=== PATIENT | male | born 1990 | race African-American/Black ===

== ENCOUNTER 2020-06-24 10:31 | Outpatient (REF) | payer OTHER, SELFPAY | END 2020-06-24 10:32 | disposition home or self-care (01) | LOC: HO.LAB 10:31 | PROVIDERS: Visit Provider Internal Medicine | DX: Z20.828 Contact with and (suspected) exposure to other viral communicable diseases (principal) | CPT/HCPCS: C9803; U0003 ==

== ENCOUNTER 2020-07-05 12:26 | Emergency (ER) | payer OTHER, SELFPAY ==
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
--- NOTE | 2020-07-05 12:54 | XR_ITS ---
EXAMINATION: XR FINGER, RIGHT CLINICAL INFORMATION: Fifth digit crush injury. COMPARISON: None. TECHNIQUE: 3 views. FINDINGS: There is a comminuted fracture of the distal aspect of the 5th distal phalanx, with displaced osseous fragments seen along the distal, radial and volar aspects. Soft tissue swelling. Apparent soft tissue irregularity dorsally. Chronic-appearing ossification/ossicle volar to the 5th PIP joint. The remainder of the bones appear intact. XR/XR finger RT min 2V IMPRESSION: Comminuted displaced fracture of the distal aspect of the 5th distal phalanx.
[2020-07-05 12:56] VITALS: BP 141/108; PULSE 101; RESP 16; TEMP 36.8; O2SAT 97; BMI 23.7
[2020-07-05] MEDS: Lidocaine HCl 2 % MPF 5 ML VIAL INFILTRATI (13:53)
== END 2020-07-05 14:32 | disposition home or self-care (01) ==
PROVIDERS: Emergency Provider Emergency Medicine
DX: S62.636B Displaced fracture of distal phalanx of right little finger, initial encounter for open fracture (principal); S61.316A Laceration without foreign body of right little finger with damage to nail, initial encounter; W20.8XXA Other cause of strike by thrown, projected or falling object, initial encounter; Y93.89 Activity, other specified; Y92.69 Other specified industrial and construction area as the place of occurrence of the external cause; Y99.0 Civilian activity done for income or pay
CPT/HCPCS: 12041; 29130; 73140; 99283; 99284

== ENCOUNTER → 2020-07-07 13:06 | Outpatient (BNVA) | payer OTHER, SELFPAY | PROVIDERS: Visit Provider Internal Medicine | DX: S62.636A Displaced fracture of distal phalanx of right little finger, initial encounter for closed fracture (principal); S61.216A Laceration without foreign body of right little finger without damage to nail, initial encounter; X50.0XXA Overexertion from strenuous movement or load, initial encounter | CPT/HCPCS: 99203 ==

== ENCOUNTER → 2020-07-14 11:41 | Outpatient (BNVA) | payer OTHER, SELFPAY | PROVIDERS: Visit Provider Internal Medicine | DX: S61.339A Puncture wound without foreign body of unspecified finger with damage to nail, initial encounter (principal); W23.0XXA Caught, crushed, jammed, or pinched between moving objects, initial encounter | CPT/HCPCS: 99212; 99213 ==

== ENCOUNTER → 2020-07-19 09:46 | Outpatient (BNVA) | payer OTHER, SELFPAY | PROVIDERS: Visit Provider Physician Assistant | DX: S67.196A Crushing injury of right little finger, initial encounter (principal); X58.XXXA Exposure to other specified factors, initial encounter | CPT/HCPCS: 99213 ==

== ENCOUNTER 2020-11-26 23:41 | Emergency (ER) | payer OTHER, SELFPAY ==
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
[2020-11-26 23:53] VITALS: BP 138/78; BP 180/116; PULSE 100; PULSE 104; RESP 16; TEMP 36.6; O2SAT 97; BMI 27.6
[2020-11-27] MEDS: Diphth,Pertus(ACell),Tet Adult 0.5 ML SYRINGE IM (00:14)
--- NOTE | 2020-11-27 00:18 | PC.NURSE ---
PT IS REQUESTING TO LEAVE AND DOESN'T WANT TO STAY FOR CT OF HIS HEAD. PT EDUCATED ON IMPORTANCE OF STAYING UNTIL RESULTS OF CT. TETANUS SHOT GIVEN TO LEFT DELTOID IM.
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
--- NOTE | 2020-11-27 00:58 | PC.NURSE ---
PT RETURNS FROM CT AWAITING DISPO.
== END 2020-11-27 02:33 | disposition home or self-care (01) ==
PROVIDERS: Emergency Provider Student in an Organized Health Care Education/Training Program
DX: S00.31XA Abrasion of nose, initial encounter (principal); S00.531A Contusion of lip, initial encounter; V43.02XA Car driver injured in collision with other type car in nontraffic accident, initial encounter; Y93.89 Activity, other specified; Y92.481 Parking lot as the place of occurrence of the external cause; Y99.9 Unspecified external cause status
CPT/HCPCS: 70450; 70486; 71046; 72125; 90471; 90715; 99283; 99284

== ENCOUNTER 2020-12-13 12:37 | Outpatient (REF) | payer OTHER, SELFPAY | END 2020-12-13 12:38 | disposition home or self-care (01) | LOC: HO.LAB 12:37 | PROVIDERS: Visit Provider Internal Medicine | DX: Z20.822 Contact with and (suspected) exposure to COVID-19 (principal) | CPT/HCPCS: C9803; U0003; U0005 ==

== ENCOUNTER 2021-01-31 12:00 | Outpatient (REF) | payer OTHER, SELFPAY ==
[2021-01-31 13:14] LABS: COVID-19 Test Negative (Negative)
== END 2021-01-31 12:01 | disposition home or self-care (01) ==
LOC: HO.ED 12:00
PROVIDERS: Visit Provider Internal Medicine
DX: Z20.822 Contact with and (suspected) exposure to COVID-19 (principal)
CPT/HCPCS: 36415; 87635

== ENCOUNTER 2021-04-29 12:01 | Emergency (ER) | payer OTHER, SELFPAY ==
[2021-04-29 12:30] VITALS: BP 168/112; PULSE 103; RESP 18; TEMP 37.5; O2SAT 95; BMI 27.6
--- NOTE | 2021-04-29 12:35 | ED.GENADULT ---
HPI - General Adult General Chief complaint: Psychiatric Symptoms Stated complaint: crisis Time Seen by Provider: 04/29/21 12:36 Source: patient Limitations: no limitations History of Present Illness HPI narrative: This is a 28-year-old male who complains of feeling depressed and hopeless, wonders if he should be here on the earth. The patient notes he has recently moved back with his mother. He expresses some shame about this. Says he does his best for his girlfriend and his daughter and other family. Does admit to drinking alcohol daily, states he has had 5 nips today. He does feel hopeless, notes trouble sleeping, has had decreased appetite recently. He denies any physical complaints such as headache, chest pain, abdominal pain. He is not on any medications for depression or anxiety or other psychiatric illness. He has a history of asthma. He admits marijuana use, denies other drug use. Related Data Previous Rx's Medication Instructions Recorded cephalexin 500 mg capsule (Keflex) 500 mg PO QID 7 Days #28 cap 07/05/20 ibuprofen 600 mg tablet 600 mg PO Q8H PRN #30 tab 07/05/20 Allergies Allergy/AdvReac Type Severity Reaction Status Date / Time No Known Allergies Allergy Verified 01/31/21 11:34 Review of Systems Review of Systems: Yes all other systems are reviewed and are negative Constitutional: Constitutional: Reports as per HPI and Denies fever(s) Eyes: Eyes: Reports as per HPI and Reports no additional eye complaints ENT: Reports system reviewed and no additional complaints, except as documented, Reports as per HPI, Denies nasal congestion, Denies nasal discharge and Denies sore throat Cardiovascular: Cardiovascular: Reports as per HPI, Denies chest pain and Denies dyspnea Respiratory: Respiratory: Reports as per HPI, Denies cough and Denies dyspnea Gastrointestinal: Gastrointestinal: Reports as per HPI, Denies abdominal pain, Denies diarrhea and Denies vomiting Genitourinary: Genitourinary: Reports as per HPI, Denies hematuria, Denies dysuria and Denies urinary frequency Musculoskeletal: Musculoskeletal: Reports no additional musculoskeletal complaints and Denies numbness Integumentary/Breasts: Skin/Breast: Reports as per HPI and Denies rash Neurologic: Reports as per HPI, Denies focal weakness, Denies numbness and Denies radicular pain Psychiatric: Psychiatric: Reports as per HPI, Reports change in appetite, Reports depression, Reports hopelessness and Reports suicidal ideation (Denies specific plans, asks, should I even be here ) Endocrine: Endocrine: Reports no additional endocrine complaints and Reports as per HPI Hematologic/Lymphatic: Hematologic/Lymphatic: Reports no additional hematologic/lymphatic complaints, Reports as per HPI and Reports other (No peripheral edema) [facility] Past Medical History Medical History Asthma Surgical History History of tonsillectomy and adenoidectomy Social History Social History Advance Directives: No Advance Directives Information Provided: Yes Physical Exam Vital Signs: Vital Signs: Last Vital Signs Temp 99.5 F 04/29/21 12:30 Pulse 103 H 04/29/21 12:44 Resp 18 04/29/21 12:30 BP 168/112 H 04/29/21 12:44 Pulse Ox 95 04/29/21 12:30 Body Mass Index 27.6 Medical Decision Making MDM Narrative Medical decision making narrative: Patient with depression, uses alcohol daily, expresses doubt about whether he should be alive, is not more specific in terms of a suicidal plan. Patient does have symptoms of depression such as anhedonia, poor sleep, poor appetite, trouble sleeping. Patient's alcohol level was considerably elevated specially in light of the time of day he was initially evaluated. Once he is clinically sober, he is to be evaluated by the crisis team. Patient is medically clear for psychiatric evaluation Lab Data Lab results reviewed: Yes I reviewed the patient's lab results. Result diagrams: 04/29/21 12:52 04/29/21 12:52 Labs: Lab Results 04/29/21 04/29/21 04/29/21 Range/Units 12:52 12:52 12:52 WBC 8.3 (4.8-10.8) X10*3/uL RBC 5.34 (4.60-5.80) X10*6/uL Hgb 16.2 (14.0-18.0) g/dl Hct 47.5 (42-52) % MCV 89.0 (80-98) fL MCH 30.3 (27.0-33.0) pg MCHC 34.1 (31.0-36.0) g/dl RDW 12.9 (11.0-16.0) % Plt Count 340 (160-400) X10*3/uL MPV 8.2 L (9.4-12.4) fL Immature Gran % (Auto) 0.2 (0.0-0.4) % Neut % (Auto) 49.7 (45-73) % Lymph % (Auto) 42.3 H (20-40) % [place] % (Auto) 7.1 (2-11) % Eos % (Auto) 0.2 (0-4) % Baso % (Auto) 0.5 (0-2) % Lymph # (Auto) 3.5 (1.2-4.9) X10*3/uL [place] # (Auto) 0.6 (0.1-1.2) X10*3/uL Eos # (Auto) 0.0 (0.0-0.4) X10*3/uL Baso # (Auto) 0.0 (0.0-0.2) X10*3/uL Abs Immat Gran (auto) 0.02 (0.00-0.03) X10*3/uL Absolute Neuts (auto) 4.1 (2.0-8.3) X10*3/uL Absolute Nucleated RBC 0.000 (0.0-0.012) X10*3/uL Nucleated RBC % (auto) 0.0 (0.0-0.2) /100WBC Sodium 141 (135-145) mmol/L Potassium 3.8 (3.3-5.1) mmol/L Chloride 106 (96-108) mmol/L Carbon Dioxide 25 (22-29) mmol/L Anion Gap 14 (12-20) BUN 8 L (9-16) mg/dL Creatinine 0.84 (0.5-1.4) mg/dL Estim Creat Clear Calc 142.6 Estimated GFR > 60 Random Glucose 83 (60-115) mg/dL Calcium 9.6 (8.4-10.2) mg/dL Magnesium 2.3 (1.6-2.6) mg/dL Total Bilirubin 1.0 (0.0-1.0) mg/dL AST 24 (5-37) U/L ALT 29 (0-40) U/L Alkaline Phosphatase 98 (39-117) U/L Total Protein 7.5 (6.5-8.0) g/dL Albumin 4.6 (3.5-5.0) g/dL Ethyl Alcohol 322 H* mg/dL COVID-19 ([facility]) (Negative) COVID-19 Clin Com 04/29/21 Range/Units 12:52 WBC (4.8-10.8) X10*3/uL RBC (4.60-5.80) X10*6/uL Hgb (14.0-18.0) g/dl Hct (42-52) % MCV (80-98) fL MCH (27.0-33.0) pg MCHC (31.0-36.0) g/dl RDW (11.0-16.0) % Plt Count (160-400) X10*3/uL MPV (9.4-12.4) fL Immature Gran % (Auto) (0.0-0.4) % Neut % (Auto) (45-73) % Lymph % (Auto) (20-40) % [place] % (Auto) (2-11) % Eos % (Auto) (0-4) % Baso % (Auto) (0-2) % Lymph # (Auto) (1.2-4.9) X10*3/uL [place] # (Auto) (0.1-1.2) X10*3/uL Eos # (Auto) (0.0-0.4) X10*3/uL Baso # (Auto) (0.0-0.2) X10*3/uL Abs Immat Gran (auto) (0.00-0.03) X10*3/uL Absolute Neuts (auto) (2.0-8.3) X10*3/uL Absolute Nucleated RBC (0.0-0.012) X10*3/uL Nucleated RBC % (auto) (0.0-0.2) /100WBC Sodium (135-145) mmol/L Potassium (3.3-5.1) mmol/L Chloride (96-108) mmol/L Carbon Dioxide (22-29) mmol/L Anion Gap (12-20) BUN (9-16) mg/dL Creatinine (0.5-1.4) mg/dL Estim Creat Clear Calc Estimated GFR Random Glucose (60-115) mg/dL Calcium (8.4-10.2) mg/dL Magnesium (1.6-2.6) mg/dL Total Bilirubin (0.0-1.0) mg/dL AST (5-37) U/L ALT (0-40) U/L Alkaline Phosphatase (39-117) U/L Total Protein (6.5-8.0) g/dL Albumin (3.5-5.0) g/dL Ethyl Alcohol mg/dL COVID-19 ([facility]) Negative (Negative) COVID-19 Clin Com See Note Discharge Plan Discharge Clinical Impression: Depression, Alcohol abuse with intoxication Patient Disposition: Still a Patient Prescriptions: No Action cephalexin [Keflex] 500 mg capsule 500 mg PO QID 7 Days Qty: 28 RF: 0 ibuprofen 600 mg tablet 600 mg PO Q8H PRN (Reason: pain) Qty: 30 RF: 0
[2021-04-29 12:44] VITALS: BP 168/112; PULSE 103
[2021-04-29] MEDS: cloNIDine HCL 0.2 MG TABLET PO (12:44)
[2021-04-29 12:56] LABS: MANUAL DIFF FLAG NO
[2021-04-29 12:58] LABS: Basophils Percent Auto 0.5 % (0-2); Eosinophils Percent Auto 0.2 % (0-4); Hematocrit 47.5 % (42-52); Hemoglobin 16.2 g/dl (14.0-18.0); Imm Gran Abs Auto 0.02 X10*3/uL (0.00-0.03); Imm Gran Pct Auto 0.2 % (0.0-0.4); Lymphocytes Absolute Auto 3.5 X10*3/uL (1.2-4.9); Lymphocytes Percent Auto 42.3 % (20-40); Mean Corpuscular HGB Conc 34.1 g/dl (31.0-36.0); Mean Corpuscular Hemoglobin 30.3 pg (27.0-33.0); Mean Platelet Volume 8.2 fL (9.4-12.4); Monocytes Absolute Auto 0.6 X10*3/uL (0.1-1.2); Monocytes Percent Auto 7.1 % (2-11); Neutrophils Absolute Auto 4.1 X10*3/uL (2.0-8.3); Neutrophils Percent Auto 49.7 % (45-73); Platelet Count 340 X10*3/uL (160-400); Red Blood Count 5.34 X10*6/uL (4.60-5.80); Red Cell Distribution Width 12.9 % (11.0-16.0); White Blood Count 8.3 X10*3/uL (4.8-10.8)
[2021-04-29 13:15] LABS: Ethanol 322 mg/dL
[2021-04-29 13:17] LABS: COVID-19 Test Negative (Negative); IDNOW Serial# 08D9AD1C
[2021-04-29 13:19] LABS: Alanine Aminotransferase 29 U/L (0-40); Albumin Level 4.6 g/dL (3.5-5.0); Alkaline Phosphatase 98 U/L (39-117); Anion Gap 14 (12-20); Aspartate Amino Transferase 24 U/L (5-37); Blood Urea Nitrogen 8 mg/dL (9-16); Calcium 9.6 mg/dL (8.4-10.2); Carbon Dioxide 25 mmol/L (22-29); Chloride 106 mmol/L (96-108); Creatinine Clr Calc Pharmacy 142.6; Estimated Glomerular Filt Rate > 60; Glucose Random 83 mg/dL (60-115); Magnesium 2.3 mg/dL (1.6-2.6); Potassium 3.8 mmol/L (3.3-5.1); Sodium 141 mmol/L (135-145); Total Protein 7.5 g/dL (6.5-8.0)
== END 2021-04-29 22:01 | disposition home or self-care (01) ==
PROVIDERS: Emergency Provider Emergency Medicine
DX: F32.9 Major depressive disorder, single episode, unspecified (principal); F10.129 Alcohol abuse with intoxication, unspecified; Y90.8 Blood alcohol level of 240 mg/100 ml or more; J45.909 Unspecified asthma, uncomplicated; Z20.822 Contact with and (suspected) exposure to COVID-19
CPT/HCPCS: 36415; 80053; 82077; 83735; 85025; 87635; 99283; 99284

== ENCOUNTER 2022-03-15 10:45 | Emergency (ER) | payer SELFPAY ==
[2022-03-15 10:48] VITALS: BP 125/82; PULSE 80; RESP 18; TEMP 36.7; O2SAT 98; BMI 23.3
--- NOTE | 2022-03-15 12:17 | ED.DENTAL ---
HPI - Dental/Oral General Chief complaint: Dental/Oral Stated complaint: dental pain Time Seen by Provider: 03/15/22 12:16 Source: patient Mode of arrival: ambulatory Limitations: no limitations History of Present Illness HPI Narrative: 31-year-old male came in for evaluation of dental pain. Pain started 3 days ago, patient broke his left upper tooth 3 days ago, patient do not have a dentist and been taking Tylenol for pain. No fever chills mild facial swelling. Related Data Previous Rx's Medication Instructions Recorded cephalexin 500 mg capsule (Keflex) 500 mg PO QID 7 days #28 caps 07/05/20 ibuprofen 600 mg tablet 600 mg PO Q8H PRN pain #30 tabs 07/05/20 amlodipine 5 mg tablet 5 mg PO DAILY #30 tabs 04/29/21 amoxicillin 500 mg capsule 500 mg PO BID #20 caps 03/15/22 ibuprofen 600 mg tablet 600 mg PO Q8H PRN fever or pain 03/15/22 #30 tabs Allergies Allergy/AdvReac Type Severity Reaction Status Date / Time No Known Allergies Allergy Verified 01/31/21 11:34 Review of Systems Review of Systems: All other systems are reviewed and are negative Constitutional: Reports as per HPI and Reports no additional constitutional complaints Eyes: Reports as per HPI and Reports no additional eye complaints Reports system reviewed and no additional complaints, except as documented Cardiovascular: Reports as per HPI and Reports no additional cardiovascular complaints Respiratory: Reports as per HPI and Reports no additional respiratory complaints Gastrointestinal: Reports as per HPI and Reports no additional gastrointestinal complaints Genitourinary: Reports no additional female genitourinary complaints Musculoskeletal: Reports no additional musculoskeletal complaints Skin/Breast: Reports system reviewed and no additional complaints, except as docu Psychiatric: Reports no additional psychiatric complaints Endocrine: Reports no additional endocrine complaints Hematologic/Lymphatic: Reports no additional hematologic/lymphatic complaints Allergic/Immunologic: Reports no additional allergic/immunologic complaints Reports system reviewed and no additional complaints, except as documented and Reports Abnormal speech present [facility] Past Medical History Medical History Asthma Surgical History History of tonsillectomy and adenoidectomy Physical Exam Vital Signs: Vital Signs: Last Vital Signs Temp 98.1 F 03/15/22 10:48 Pulse 80 03/15/22 10:48 Resp 18 03/15/22 10:48 BP 125/82 03/15/22 10:48 Pulse Ox 98 03/15/22 10:48 O2 Del Method 03/15/22 10:48 BMI result Body Mass Index 23.3 Vital signs have been reviewed as appeared to be correct. Blood pressure normal. Heart rate normal. Respiration rate normal. Temperature normal. Oxygen saturation normal. Appearance: Alert. Oriented X3. No acute distress. Head: Normal external exam. Normocephalic. Atraumatic. No Murguia signs noted. No raccoon eyes noted. Dental: Left upper 3rd molar tooth tenderness, slight swelling around the gum, no fluctuation, no abscess, no drainage. Eyes: PERRLA. EOMI. Conjunctiva and sclera normal. Eyelids normal. ENT: TM's Normal. Pharynx normal. Uvula midline. Moist mucous membranes. No trismus noted. No drooling noted. No muffled voice noted. Neck: Normal inspection. Neck supple. FROM. No adenopathy. Thyroid Normal. No meningeal signs. No neck mass noted. CVS: Normal heart rate and rhythm. Heart sound normal. No murmurs noted. Pulses normal throughout. Respiratory: No respiratory distress. Painless inspiration. Breath sounds normal. No wheezes/rales/rhonchi noted. Chest nontender. No accessory muscle usage noted or decreased air movement noted. Abdomen: Soft and nontender. Bowel sounds normal in all 4 quadrants. No distention noted. No organomegaly noted. No visible injury noted. Back: No CVA tenderness. Full range of motion noted. Skin: Skin warm and dry. Normal skin color. Normal skin turgor. No rashes/lesions/lacerations noted. Extremities: No lower extremity edema. Extremities exhibit normal range of motion. Extremities nontender. Neuro: Oriented X 3. Cranial nerve exam: II-XII are grossly intact No motor deficit. No sensory deficit. Reflexes normal. Course Course Course Narrative: Mild gingivitis will start the patient on amoxicillin and ibuprofen, instructed to follow-up with a dentist. Discharge Plan Discharge Clinical Impression: Toothache, Gingivitis Patient Disposition: Home, Self-Care Instructions: Gingivitis (ED) Additional Instructions: Follow-up with a dentist. Prescriptions: New amoxicillin 500 mg capsule 500 mg PO BID Qty: 20 0RF ibuprofen 600 mg tablet 600 mg PO Q8H PRN (Reason: fever or pain) Qty: 30 0RF No Action cephalexin [Keflex] 500 mg capsule 500 mg PO QID 7 Days Qty: 28 0RF ibuprofen 600 mg tablet 600 mg PO Q8H PRN (Reason: pain) Qty: 30 0RF amlodipine 5 mg tablet 5 mg PO DAILY Qty: 30 1RF Referrals: Physician,None [Primary Care Provider] -
== END 2022-03-15 12:35 | disposition home or self-care (01) ==
PROVIDERS: Emergency Provider Emergency Medicine
DX: K05.10 Chronic gingivitis, plaque induced (principal); K08.89 Other specified disorders of teeth and supporting structures
CPT/HCPCS: 99282; 99283

== ENCOUNTER → 2022-04-28 09:37 | Outpatient (BNVA) | payer OTHER, SELFPAY | PROVIDERS: Visit Provider Internal Medicine | DX: S67.31XA Crushing injury of right wrist, initial encounter (principal); W23.1XXA Caught, crushed, jammed, or pinched between stationary objects, initial encounter | CPT/HCPCS: 73110; 99204 ==

== ENCOUNTER → 2022-05-04 10:01 | Outpatient (BNVA) | payer OTHER, SELFPAY | PROVIDERS: Visit Provider Physician Assistant | DX: S67.31XA Crushing injury of right wrist, initial encounter (principal); S52.591A Other fractures of lower end of right radius, initial encounter for closed fracture; W23.1XXA Caught, crushed, jammed, or pinched between stationary objects, initial encounter | CPT/HCPCS: 73200; 99204; 99214 ==

== ENCOUNTER 2022-05-30 09:00 | Emergency (ER) | payer MEDICAID, SELFPAY ==
[2022-05-30 09:05] VITALS: BP 141/94; PULSE 83; RESP 20; TEMP 36.3; O2SAT 99; BMI 23.7
--- NOTE | 2022-05-30 11:28 | ED_ITS ---
HPI - General Adult General Chief complaint: Dental/Oral Stated complaint: dental pain Time Seen by Provider: 05/30/22 10:39 Source: patient Mode of arrival: ambulatory Limitations: no limitations History of Present Illness HPI narrative: 30-year-old male presents to ED for left upper molar pain the past 2 days. P atient states left upper face was swollen but then resolved with ice. Patient states history of broken tooth that needs to be extracted. Patient denies any drooling, loss of voice, neck swelling, chest pain, shortness of breath, or any recent dental work. Related Data Previous Rx's Medication Instructions Recorded cephalexin 500 mg capsule (Keflex) 500 mg PO QID 7 days #28 caps 07/05/20 ibuprofen 600 mg tablet 600 mg PO Q8H PRN pain #30 tabs 07/05/20 amlodipine 5 mg tablet 5 mg PO DAILY #30 tabs 04/29/21 amoxicillin 500 mg capsule 500 mg PO BID #20 caps 03/15/22 ibuprofen 600 mg tablet 600 mg PO Q8H PRN fever or pain 03/15/22 #30 tabs amoxicillin 875 mg-potassium 1 tab PO Q12H 10 days #20 tabs 05/30/22 clavulanate 125 mg tablet ketorolac 10 mg tablet 10 mg PO QID PRN pain 5 days #20 05/30/22 tabs Allergies Allergy/AdvReac Type Severity Reaction Status Date / Time No Known Allergies Allergy Verified 01/31/21 11:34 Review of Systems Review of Systems: left upper molar pain Yes all other systems are reviewed and are negative PMFSH Past Medical History Medical History Asthma Surgical History History of tonsillectomy and adenoidectomy Social History Social History Alcohol intake: never Smoked in Last 30 Days: Yes Use of substances other than those prescribed or required for medical reasons: Yes Substance Use Type: Marijuana Advance Directives: No Advance Directives Information Provided: No Physical Exam ED Vital Signs: Vital Signs - 24 hr 05/30/22 09:05 Temperature 97.4 F Pulse Rate 83 Respiratory Rate 20 Blood Pressure 141/94 H Pulse Oximetry 99 Oxygen Delivery Method Room Air BMI result Body Mass Index 23.7 Const General: cooperative, healthy appearing, comfortable, no acute distress, well developed, alert, awake and Physically active Orientation/consciousness: oriented to person, oriented to place, oriented to time and patient oriented x3 HENMT Other: Negative for facial swelling Head: Yes normal to inspection, Yes No palpable skull fracture present, Yes normocephalic, Yes atraumatic and No abrasion Ears: hearing grossly normal bilaterally, external ears normal, TM's normal bilaterally, TM normal on the right, TM normal on the left, EAC's normal, mastoids normal and no periauricular adenopathy Teeth image: 1. Broken tooth with some yellow collection inside. Gum swelling/erythema. Negative for trismus. Negative for signs of peritonsillar abscess. Negative for drooling. Negative for change in voice. Eyes General: appearance normal, both eyes and all related structures Neck Neck: Yes normal visual inspection, Yes full ROM, Yes no lymphadenopathy, Yes no meningeal signs, Yes trachea midline, Yes supple, No anterior neck swelling and No tender Chest Chest palpation & inspection: normal inspection of the chest and normal palpation of entire chest wall Resp Effort & Inspection: normal respiratory effort and able to speak in complete sentences Auscultation: clear to auscultation bilaterally Cardio Jugular venous distension: no JVD Heart sounds: S1 normal heart sound present and S2 normal heart sound present GI Inspection: Yes normal to inspection and No abdominal wall ecchymosis Palpation (GI): Soft to palpation, not firm, nontender, no guarding and not rigid General: No CVA tenderness and Yes no CVA tenderness Back/Spine/Pelvis Back: no CVA tenderness, No CVA tenderness and No back tenderness Skin General skin exam: no rashes or lesions noted and elasticity normal Neuro General: oriented to person, oriented to place, oriented to time, patient oriented x3, gait normal and no meningeal signs Cranial nerves: Yes CN's II-XII intact bilaterally Extrem General: Yes normal to inspection and Yes full ROM Psych Appearance: grossly normal, well kempt and not disheveled Course Course Course Narrative: Dental pain. Reevaluation(s) Reevaluation #1: Toradol ordered. Patient discharged with antibiotic and pain medication. Patient states he has appointment with dentist to schedule tooth extraction Time: 11:36 Medications Administered Discontinued Medications Generic Name Dose Route Start Last Admin Trade Name Freq PRN Reason Stop Dose Admin Ketorolac Tromethamine 30 mg 05/30/22 11:11 05/30/22 11:39 Ketorolac Tromethamine 30 Mg/Ml Vial IM 05/30/22 11:12 30 mg ONCE ONE Administration Medical Decision Making MDM Narrative Medical decision making narrative: Dental pain Discharge Plan Discharge Clinical Impression: Toothache Patient Disposition: Home, Self-Care Instructions: Toothache (ED) Additional Instructions: Return to the ED immediately for any facial swelling, redness, neck swelling, shortness of breath, chest pain, drooling, change in voice, or any other concerning symptoms. Do not take any other NSAIDs with Toradol. Please follow up with your dentist Prescriptions: New amoxicillin-pot clavulanate 875-125 mg tablet 1 tab PO Q12H 10 Days Qty: 20 0RF ketorolac 10 mg tablet 10 mg PO QID PRN (Reason: pain) 5 Days Qty: 20 0RF Rx Instructions: Patient received toradol 30mg IM No Action cephalexin [Keflex] 500 mg capsule 500 mg PO QID 7 Days Qty: 28 0RF ibuprofen 600 mg tablet 600 mg PO Q8H PRN (Reason: pain) Qty: 30 0RF amoxicillin 500 mg capsule 500 mg PO BID Qty: 20 0RF ibuprofen 600 mg tablet 600 mg PO Q8H PRN (Reason: fever or pain) Qty: 30 0RF amlodipine 5 mg tablet 5 mg PO DAILY Qty: 30 1RF Stand Alone Forms: Work/School Release Interventions: ED Discharge Assessment Last Done: 05/30/22 12:18 Discharge Date/Time: 05/30/22 12:19 Print Language: Guamanian
[2022-05-30] MEDS: Ketorolac Tromethamine 30 MG/ML VIAL IM (11:39)
== END 2022-05-30 12:19 | disposition home or self-care (01) ==
PROVIDERS: Emergency Provider Emergency Medicine Emergency Medical Services
DX: K08.89 Other specified disorders of teeth and supporting structures (principal); F12.90 Cannabis use, unspecified, uncomplicated
CPT/HCPCS: 96372; 99284; J1885

== ENCOUNTER 2022-08-18 08:55 | Emergency (ER) | payer MEDICAID, SELFPAY ==
[2022-08-18 09:06] VITALS: BP 163/117; PULSE 104; RESP 18; TEMP 36.6; O2SAT 98; BMI 22.1
--- NOTE | 2022-08-18 09:23 | ED_ITS ---
HPI - Dental/Oral General Chief complaint: Dental/Oral Stated complaint: Dental Pain Time Seen by Provider: 08/18/22 09:14 Source: patient Mode of arrival: ambulatory Limitations: no limitations History of Present Illness MD Complaint: tooth pain Teeth map: 1. Onset (ago): day(s) (Intermittent since May worse today) Duration: intermittent Severity: moderate Relieving factors: nothing Exacerbating factors: chewing (Palpation) Context: history of dental caries and poor dental care Associated symptoms: gum swelling Treatment prior to arrival: other ([id number] Motrin Tylenol no symptomatic relief. Reports that he had a some left over amoxicillin when he was seen here May and started taking that) Related Data Previous Rx's Medication Instructions Recorded cephalexin 500 mg capsule (Keflex) 500 mg PO QID 7 days #28 caps 07/05/20 ibuprofen 600 mg tablet 600 mg PO Q8H PRN pain #30 tabs 07/05/20 amlodipine 5 mg tablet 5 mg PO DAILY #30 tabs 04/29/21 amoxicillin 500 mg capsule 500 mg PO BID #20 caps 03/15/22 ibuprofen 600 mg tablet 600 mg PO Q8H PRN fever or pain 03/15/22 #30 tabs amoxicillin 875 mg-potassium 1 tab PO Q12H 10 days #20 tabs 05/30/22 clavulanate 125 mg tablet ketorolac 10 mg tablet 10 mg PO QID PRN pain 5 days #20 05/30/22 tabs amoxicillin 875 mg tablet 875 mg PO BID 10 days #20 tabs 08/18/22 ibuprofen 800 mg tablet 800 mg PO Q8H PRN pain #14 tabs 08/18/22 oxycodone 5 mg tablet 5 mg PO Q6H PRN pain #14 tabs 08/18/22 Allergies Allergy/AdvReac Type Severity Reaction Status Date / Time No Known Allergies Allergy Verified 01/31/21 11:34 Review of Systems Review of Systems: Constitutional : No Fever, No Chills, No changes in PO intake, No difficulty speaking, no recent dental procedure, no heat or cold intolerance while eating, no recent face trauma, ENT/Mouth : + Dental pain, No Sore throat, No Jaw pain, No throat swelling, No swallowing difficulty, no change in voice, + facial swelling, no drooling, no trismus, no bleeding, no lacerations, no tongue swelling, + gum swelling, Eyes: No Eye Pain, No periorbital Swelling Cardiovascular : No Chest Pain, No SOB Respiratory : No Cough, No Sputum, No Wheezing, No Smoke Exposure, No Dyspnea Gastrointestinal : No Nausea, No Vomiting, No Diarrhea Genitourinary : No Dysuria Musculoskeletal : No Myalgias Skin : No rash, no facial swelling or redness, Neuro : No Weakness, No Numbness, No Headache Yes all other systems are reviewed and are negative [facility] Past Medical History Attestation statement: The following information was validated with the patient. Source: old records reviewed and nursing notes reviewed Medical History Asthma Surgical History History of tonsillectomy and adenoidectomy Social History Social History Alcohol intake: never Substance Use Type: Marijuana Advance Directives: No Advance Directives Information Provided: Yes Physical Exam Vital Signs: Vital Signs: Last Vital Signs Temp 97.9 F 08/18/22 09:06 Pulse 104 H 08/18/22 09:06 Resp 18 08/18/22 09:06 BP 163/117 H 08/18/22 09:06 Pulse Ox 98 08/18/22 09:06 O2 Del Method 08/18/22 09:06 BMI result Body Mass Index 22.1 vital signs have been reviewed as normal and appeared to be correct. Blood pressure normal. Heart rate normal. Respiration rate normal. Temperature nor mal. Oxygen saturation normal. Appearance: Alert. Oriented X3. No acute di stress. Head: Normal external exam. Normocephalic. Atraumatic. Eyes: PERRLA. EOMI. Conjunctiva and sclera normal. Eyelids normal. ENT: EAC normal. TM's Normal. Pharynx normal. Uvula midline. Moist mucous membranes. No trismus noted. No drooling noted. No muffled voice noted. Dentition: Patient with poor dentition throughout with multiple old fractured teeth with multiple dental caries. Gingival within normal limits. No fluctuance. Not consistent with peritonsillar abscess. Not consistent with dental abscess. No salivary duct obstruction noted. Neck: Normal inspection. Neck supple. FROM. No adenopathy. Thyroid Normal. No meningeal signs. No neck mass noted. Trachea midline. CVS: Normal heart rate and rhythm. Heart sound normal. No murmurs noted. Pulses normal throughout. Respiratory: No respiratory distress. Painless inspiration. Breath sounds normal. No wheezes/rales/rhonchi noted. Chest nontender. No accessory muscle usage noted or decreased air movement noted. Back: Full range of motion noted. Skin: Skin warm and dry. Normal skin color. Normal skin turgor. No rashes/lesions/lacerations noted. Extremities:Extremities exhibit normal range of motion. Extremities nontender. Neuro: Oriented X 3. No motor deficit. No sensory deficit. Reflexes normal. Course Course Course Narrative: Patient with poor dentition throughout. He does have mild left upper facial swelling with dental pain although no obvious dental/gingival/pharyngeal abscess. Not consistent with Ludwigs angina. There is no lymphangitis noted. Not consistent with cellulitis. Will DC home with antibiotics and symptomatic treatment instructions to follow up with an oral surgeon/dentist within the next few days and to return if any new or worsening symptoms to take the antibiotics as prescribed even if he is feeling better not to have any antibiotics left over. And to return if any new or worsening symptoms patient understands agrees with this plan. Discharge Plan Discharge Clinical Impression: Toothache, Dental caries Patient Disposition: Home, Self-Care Instructions: Toothache (ED) Prescriptions: New amoxicillin 875 mg tablet 875 mg PO BID 10 Days Qty: 20 0RF ibuprofen 800 mg tablet 800 mg PO Q8H PRN (Reason: pain) Qty: 14 0RF oxycodone 5 mg tablet 5 mg PO Q6H PRN (Reason: pain) Qty: 14 0RF Rx Instructions: Partial Fill upon patient request. No Action cephalexin [Keflex] 500 mg capsule 500 mg PO QID 7 Days Qty: 28 0RF ibuprofen 600 mg tablet 600 mg PO Q8H PRN (Reason: pain) Qty: 30 0RF amoxicillin 500 mg capsule 500 mg PO BID Qty: 20 0RF ibuprofen 600 mg tablet 600 mg PO Q8H PRN (Reason: fever or pain) Qty: 30 0RF amoxicillin-pot clavulanate 875-125 mg tablet 1 tab PO Q12H 10 Days Qty: 20 0RF ketorolac 10 mg tablet 10 mg PO QID PRN (Reason: pain) 5 Days Qty: 20 0RF Rx Instructions: Patient received toradol 30mg IM amlodipine 5 mg tablet 5 mg PO DAILY Qty: 30 1RF Referrals: Physician,None [Primary Care Provider] - 1 day (your oral surgeon )
[2022-08-18] MEDS: oxyCODONE HCl Immed Release 5 MG TABLET PO (09:34)
[2022-08-18] MEDS: Ibuprofen 800 MG TABLET PO (09:34)
[2022-08-18] MEDS: Amoxicillin 500 MG CAPSULE PO (09:34)
== END 2022-08-18 09:39 | disposition home or self-care (01) ==
PROVIDERS: Emergency Provider Student in an Organized Health Care Education/Training Program
DX: K08.89 Other specified disorders of teeth and supporting structures (principal); K02.9 Dental caries, unspecified; F12.90 Cannabis use, unspecified, uncomplicated
CPT/HCPCS: 99283

== ENCOUNTER 2022-08-20 12:32 | Emergency (ER) | payer MEDICAID, SELFPAY ==
[2022-08-20 12:38] VITALS: BP 138/99; PULSE 97; RESP 18; TEMP 36.3; O2SAT 96; BMI 21.7
--- NOTE | 2022-08-20 13:03 | ED_ITS ---
HPI - Dental/Oral General Chief complaint: Dental/Oral Stated complaint: Dental pain/Trouble swallowing Time Seen by Provider: 08/20/22 13:01 Source: patient Mode of arrival: ambulatory Limitations: no limitations History of Present Illness HPI Narrative: 32-year-old male here with complaints of swelling to the left upper dental area. Patient reports he was seen here 2 days ago and diagnosed with dental infectio n. He was started on Augmentin and given oxycodone for pain. He was told to return if an abscess develops that he may have it drained. He reports he noticed an abscess last night. He denies fevers or chills, no difficulty breathing or swallowing. He has not followed up with dentist Related Data Previous Rx's Medication Instructions Recorded cephalexin 500 mg capsule (Keflex) 500 mg PO QID 7 days #28 caps 07/05/20 ibuprofen 600 mg tablet 600 mg PO Q8H PRN pain #30 tabs 07/05/20 amlodipine 5 mg tablet 5 mg PO DAILY #30 tabs 04/29/21 amoxicillin 500 mg capsule 500 mg PO BID #20 caps 03/15/22 ibuprofen 600 mg tablet 600 mg PO Q8H PRN fever or pain 03/15/22 #30 tabs amoxicillin 875 mg-potassium 1 tab PO Q12H 10 days #20 tabs 05/30/22 clavulanate 125 mg tablet ketorolac 10 mg tablet 10 mg PO QID PRN pain 5 days #20 05/30/22 tabs amoxicillin 875 mg tablet 875 mg PO BID 10 days #20 tabs 08/18/22 ibuprofen 800 mg tablet 800 mg PO Q8H PRN pain #14 tabs 08/18/22 oxycodone 5 mg tablet 5 mg PO Q6H PRN pain #14 tabs 08/18/22 Allergies Allergy/AdvReac Type Severity Reaction Status Date / Time No Known Allergies Allergy Verified 01/31/21 11:34 Review of Systems Review of Systems: Yes all other systems are reviewed and are negative Constitutional: Constitutional: Reports no additional constitutional complaints, Denies body ache(s), Denies chills, Denies fever(s), Denies headache(s) and Denies weakness Eyes: Eyes: Reports no additional eye complaints and Denies change in vision ENT: Reports system reviewed and no additional complaints, except as documented, Reports dental pain, Denies dizziness, Denies headache(s), Denies nasal congestion, Denies nasal discharge and Denies neck pain Cardiovascular: Cardiovascular: Reports no additional cardiovascular complaints, Denies chest pain, Denies leg edema and Denies dyspnea Respiratory: Respiratory: Reports no additional respiratory complaints, Denies cough and Denies dyspnea Gastrointestinal: Gastrointestinal: Reports no additional gastrointestinal complaints, Denies abdominal pain, Denies diarrhea, Denies nausea and Denies vomiting Genitourinary: Genitourinary: Denies urinary incontinence Musculoskeletal: Musculoskeletal: Reports no additional musculoskeletal complaints, Denies back pain, Denies arthralgias, Denies joint swelling, Denies neck pain, Denies numbness and Denies tingling Integumentary/Breasts: Skin/Breast: Reports system reviewed and no additional complaints, except as docu and Denies rash Neurologic: Reports system reviewed and no additional complaints, except as documented, Denies Abnormal speech present, Denies dizziness, Denies headache(s), Denies numbness, Denies tingling and Denies weakness PMFSH Past Medical History Attestation statement: The following information was validated with the patient. Source: old records reviewed and nursing notes reviewed Medical History Asthma Surgical History History of tonsillectomy and adenoidectomy Social History Social History Alcohol intake: never Substance Use Type: Marijuana Advance Directives: No Advance Directives Information Provided: Yes Physical Exam Vital Signs: Vital Signs: Last Vital Signs Temp 97.4 F 08/20/22 12:38 Pulse 97 08/20/22 12:38 Resp 18 08/20/22 12:38 BP 138/99 H 08/20/22 12:38 Pulse Ox 96 08/20/22 12:38 O2 Del Method 08/20/22 12:38 BMI result Body Mass Index 21.7 Const: General: cooperative, healthy appearing, comfortable and no acute distr ess Orientation/consciousness: patient oriented x3 Limitations: no limitations HEENT: Other: no trismus Head: Yes normal to inspection Ears: hearing grossly normal bilaterally General nose exam: Normal external nose present Face and sinus: Yes normal facial exam Mouth: Normal oral and palatal mucosa present Teeth image: 1. fluctuant small abscess with tenderness Throat: Yes posterior oropharynx normal Eyes: General: appearance normal, both eyes and all related structures Pupils: Equal, round and reactive pupils present Neck: Neck: Yes normal visual inspection Chest: Chest palpation & inspection: normal inspection of the chest Resp: Effort & Inspection: normal respiratory effort Auscultation: clear to auscultation bilaterally Cardio: Rate: regular rate Rhythm: regular rhythm Peripheral pulses: Peripheral pulses 2+ throughout GI: Inspection: Yes normal to inspection Palpation (GI): Soft to palpation and nontender Auscultation: normal bowel sounds Back/Spine/Pelvis: Thoracic/Lumbar Spine: thoracic and lumbar spine normal to inspection Skin: General skin exam: no rashes or lesions noted Neuro: General: patient oriented x3, no focal motor deficits and normal sensation to monofilament Cranial nerves: Yes Equal, round and reactive pupils present Cognition (Neuro): normal cognition Speech: No Abnormal speech present Gait exam (Neuro): Normal gait present Motor exam (neuro): 5/5 motor strength present throughout Extrem: General: Yes normal to inspection Medications Administered Discontinued Medications Generic Name Dose Route Start Last Admin Trade Name Freq PRN Reason Stop Dose Admin Lidocaine HCl 15 ml 08/20/22 13:13 08/20/22 13:19 Lidocaine Hcl Viscous 2 % 15 Ml Solution MUCOUS MEM 08/20/22 13:14 15 ml ONCE ONE Administration Medical Decision Making Medical Decision Making [facility] Narrative: 32-year-old male currently on antibiotics for dental infection presents to the emergency room with concern for dental abscess that needs drainage. See procedure note. No evidence of Garry's angina or facial cellulitis. Recommend patient continue his antibiotics prescribed 2 days ago. Recommend follow-up with dental clinic Differential Diagnosis Differential Diagnoses: The differential diagnosis associated with the presentation includes Dental infection, dental abscess Procedures Abscess I/D Site: oral Side (if applicable): left Local Anesthetic: other anesthetic (topical lido) Technique: needle aspiration Amount of fluid expressed (mL): 1 Sent for culture/gram staining?: No Irrigation: No Packing used?: none Complications: pain Discharge Plan Discharge Clinical Impression: Dental abscess Patient Disposition: Home, Self-Care Additional Instructions: Continue your medications as prescribed Follow-up with dentist Prescriptions: No Action cephalexin [Keflex] 500 mg capsule 500 mg PO QID 7 Days Qty: 28 0RF ibuprofen 600 mg tablet 600 mg PO Q8H PRN (Reason: pain) Qty: 30 0RF amoxicillin 500 mg capsule 500 mg PO BID Qty: 20 0RF ibuprofen 600 mg tablet 600 mg PO Q8H PRN (Reason: fever or pain) Qty: 30 0RF amoxicillin-pot clavulanate 875-125 mg tablet 1 tab PO Q12H 10 Days Qty: 20 0RF ketorolac 10 mg tablet 10 mg PO QID PRN (Reason: pain) 5 Days Qty: 20 0RF Rx Instructions: Patient received toradol 30mg IM amoxicillin 875 mg tablet 875 mg PO BID 10 Days Qty: 20 0RF ibuprofen 800 mg tablet 800 mg PO Q8H PRN (Reason: pain) Qty: 14 0RF oxycodone 5 mg tablet 5 mg PO Q6H PRN (Reason: pain) Qty: 14 0RF Rx Instructions: Partial Fill upon patient request. amlodipine 5 mg tablet 5 mg PO DAILY Qty: 30 1RF
[2022-08-20] MEDS: Lidocaine HCl Viscous 2 % 15 ML SOLUTION MUCOUS MEM (13:19)
== END 2022-08-20 14:35 | disposition home or self-care (01) ==
PROVIDERS: Emergency Provider Student in an Organized Health Care Education/Training Program
DX: K04.7 Periapical abscess without sinus (principal)
CPT/HCPCS: 41800; 99282; 99284

== ENCOUNTER 2022-11-29 10:21 | Emergency (ER) | payer MEDICAID, SELFPAY ==
[2022-11-29 11:28] VITALS: BP 174/118; PULSE 71; RESP 18; TEMP 36.7; O2SAT 97; BMI 23.7
--- NOTE | 2022-11-29 11:29 | ED_ITS ---
HPI - Dental/Oral General Chief complaint: Dental/Oral Stated complaint: Dental Pain Time Seen by Provider: 11/29/22 11:32 Source: patient Mode of arrival: ambulatory Limitations: no limitations History of Present Illness HPI Narrative: 32 yo male with history of poor dental care, history of dental abscesses in the past who presents to the ER for evaluation of acute left upper dental pain that started this morning. He states yesterday he ate hard garlic bread and had some pain at that time. He had an abscess in July that required I&D in the ER and abx. He does not have health insurance and was not able to see a dentist for evaluation of extraction. No fever or chills. He is able to eat and drink. He feels pain radiating to his left cheek and ear. No facial swelling. MD Complaint: tooth pain Location: Tooth # (16) Onset (ago): hour(s) Duration: constant Severity: severe Severity scale (1-10): >10 Relieving factors: nothing Exacerbating factors: nothing Context: poor dental care Associated symptoms: gum swelling and ear pain Treatment prior to arrival: none Related Data Previous Rx's Medication Instructions Recorded cephalexin 500 mg capsule (Keflex) 500 mg PO QID 7 days #28 caps 07/05/20 ibuprofen 600 mg tablet 600 mg PO Q8H PRN pain #30 tabs 07/05/20 amlodipine 5 mg tablet 5 mg PO DAILY #30 tabs 04/29/21 amoxicillin 500 mg capsule 500 mg PO BID #20 caps 03/15/22 ibuprofen 600 mg tablet 600 mg PO Q8H PRN fever or pain 03/15/22 #30 tabs amoxicillin 875 mg-potassium 1 tab PO Q12H 10 days #20 tabs 05/30/22 clavulanate 125 mg tablet ketorolac 10 mg tablet 10 mg PO QID PRN pain 5 days #20 05/30/22 tabs amoxicillin 875 mg tablet 875 mg PO BID 10 days #20 tabs 08/18/22 ibuprofen 800 mg tablet 800 mg PO Q8H PRN pain #14 tabs 08/18/22 oxycodone 5 mg tablet 5 mg PO Q6H PRN pain #14 tabs 08/18/22 amoxicillin 875 mg-potassium 1 tab PO BID #20 tabs 11/29/22 clavulanate 125 mg tablet ibuprofen 600 mg tablet 600 mg PO Q8H PRN pain #30 tabs 11/29/22 Allergies Allergy/AdvReac Type Severity Reaction Status Date / Time No Known Allergies Allergy Verified 01/31/21 11:34 Review of Systems Review of Systems: Yes all other systems are reviewed and are negative [facility] Past Medical History Medical History Asthma Surgical History History of tonsillectomy and adenoidectomy Social History Social History Alcohol intake: never Substance Use Type: Marijuana Advance Directives: No Advance Directives Information Provided: Yes Physical Exam Vital Signs: Vital Signs: Last Vital Signs Temp 98.1 F 11/29/22 11:28 Pulse 71 11/29/22 11:28 Resp 18 11/29/22 11:28 BP 174/118 H 11/29/22 11:28 Pulse Ox 97 11/29/22 11:28 O2 Del Method Room Air 11/29/22 11:28 BMI result Body Mass Index 23.7 Appearance: Alert. Oriented X3. No acute distress. HEENT: normal external inspection. poor dentition. left upper 3rd molar with broken tooth w/ decay, mild associated gingival swelling, no fluctuance. no trismus. CVS: Normal heart rate and rhythm. Pulses normal. Respiratory: No respiratory distress. Skin: Skin warm and dry. Normal skin color. Normal skin turgor. No rashes. Extremities: normal inspection. Neuro: Oriented X 3. grossly normal, nonfocal Medical Decision Making Medical Decision Making [facility] Narrative: 32 yo male presenting with left upper dental pain that started today. hx pain and abscess in the same tooth in the past. has not been able to see a dentist. no visible abscess on exam today. will start empiric abx along w/ NSAID for pain control. emergency dental list provided along with PCP list. outpatient follow up was stressed and pt expressed understanding Differential Diagnosis Differential Diagnoses: The differential diagnosis associated with the presentation includes dental abscess, dental caries, exposed dentin, toothache, poor dentition External Record Review External record reviewed: Outpatient record Prescription Management I considered prescription management with: Pain Medication and Antibiotic Chronic Conditions Patient?s care impacted by: Other (poor dental care) Critical Care Time Critical Care Time Critical Care Time: No Discharge Plan Discharge Clinical Impression: Toothache Patient Disposition: Home, Self-Care Instructions: Toothache (ED) Additional Instructions: Take the prescribed antibiotic as directed - complete the entire course and do not miss any doses Take the anti-inflammatory pain medication every 6 hours, take it with food. Follow up with a dentist as soon as possible If you develop new or worsening symptoms call 911 or come back to the ER for further evaluation. Prescriptions: New amoxicillin-pot clavulanate 875-125 mg tablet 1 tab PO BID Qty: 20 0RF ibuprofen 600 mg tablet 600 mg PO Q8H PRN (Reason: pain) Qty: 30 0RF No Action cephalexin [Keflex] 500 mg capsule 500 mg PO QID 7 Days Qty: 28 0RF ibuprofen 600 mg tablet 600 mg PO Q8H PRN (Reason: pain) Qty: 30 0RF amoxicillin 500 mg capsule 500 mg PO BID Qty: 20 0RF ibuprofen 600 mg tablet 600 mg PO Q8H PRN (Reason: fever or pain) Qty: 30 0RF amoxicillin-pot clavulanate 875-125 mg tablet 1 tab PO Q12H 10 Days Qty: 20 0RF ketorolac 10 mg tablet 10 mg PO QID PRN (Reason: pain) 5 Days Qty: 20 0RF Rx Instructions: Patient received toradol 30mg IM amoxicillin 875 mg tablet 875 mg PO BID 10 Days Qty: 20 0RF ibuprofen 800 mg tablet 800 mg PO Q8H PRN (Reason: pain) Qty: 14 0RF oxycodone 5 mg tablet 5 mg PO Q6H PRN (Reason: pain) Qty: 14 0RF Rx Instructions: Partial Fill upon patient request. amlodipine 5 mg tablet 5 mg PO DAILY Qty: 30 1RF Stand Alone Forms: Work/School Release Interventions: ED Discharge Assessment Last Done: 11/29/22 11:44 Discharge Date/Time: 11/29/22 11:45
== END 2022-11-29 11:45 | disposition home or self-care (01) ==
PROVIDERS: Emergency Provider Emergency Medicine Emergency Medical Services
DX: K08.89 Other specified disorders of teeth and supporting structures (principal)
CPT/HCPCS: 99282; 99283

== ENCOUNTER 2023-02-06 08:24 | Emergency (ER) | payer MEDICAID, SELFPAY ==
--- NOTE | ~2023-02-06 | CT_ITS ---
EXAMINATION: CT ABDOMEN AND PELVIS WITH CONTRAST CLINICAL INFORMATION: Abdominal pain. Bloody bowel movements. COMPARISON: None available. TECHNIQUE: Multidetector volumetric images were obtained from the superior aspect of the liver through the pubic symphysis following administration 85 mL of Omnipaque 350 intravenous contrast. Sagittal and coronal reformatted images were obtained on the technologist's workstation. Oral contrast: No This CT examination was performed using dose optimization techniques as appropriate, variously including the following: *Automated exposure control *Adjustment of mA and/or kV according to patient size (this includes techniques or standardized protocols for targeted exams where dose is matched to indication/reason for exam; i.e. extremities or head) *Use of iterative reconstruction technique DLP: 492 mGy-cm FINDINGS: LUNG BASES: The visualized lung bases are unremarkable. LIVER, GALLBLADDER, AND BILIARY TREE: The liver is normal in size, shape, and attenuation. No focal hepatic lesion or biliary ductal dilatation is present. The gallbladder is unremarkable with no evidence of radiopaque gallstones, gallbladder wall thickening, or obvious pericholecystic inflammatory changes. PANCREAS: Unremarkable. SPLEEN: Unremarkable. ADRENAL GLANDS: Unremarkable. KIDNEYS AND URETERS: The kidneys are normal in size, shape, and attenuation. No hydronephrosis, hydroureter, or calculi seen. No perinephric stranding. BLADDER: Unremarkable. GASTROINTESTINAL TRACT: The small and large bowel are unremarkable. The appendix is unremarkable. ABDOMINAL WALL: No significant hernia is appreciated. LYMPH NODES: Normal. VASCULAR: Unremarkable. PELVIC VISCERA: The prostate and seminal vesicles are unremarkable. OSSEOUS STRUCTURES: No acute or suspicious osseous abnormality. CT/CT abdomen pelvis w IV con IMPRESSION: No acute findings of the abdomen or pelvis. No inflammatory changes. Fleischner guidelines were followed.
[2023-02-06 08:37] VITALS: BP 170/117; PULSE 70; RESP 18; TEMP 36.1; O2SAT 100; BMI 23.7
[2023-02-06 08:49] LABS: MANUAL DIFF FLAG NO
[2023-02-06 08:51] LABS: Basophils Absolute Auto 0.1 X10*3/uL (0.0-0.2); Basophils Percent Auto 0.6 % (0-2); Eosinophils Percent Auto 0.4 % (0-4); Hematocrit 42.1 % (42.0-52.0); Hemoglobin 14.4 g/dl (14.0-18.0); Imm Gran Abs Auto 0.04 X10*3/uL (0.00-0.03); Imm Gran Pct Auto 0.4 % (0.0-0.4); Lymphocytes Absolute Auto 2.3 X10*3/uL (1.2-4.9); Lymphocytes Percent Auto 24.8 % (20-40); Mean Corpuscular HGB Conc 34.2 g/dl (31.0-36.0); Mean Corpuscular Hemoglobin 31.3 pg (27.0-33.0); Mean Corpuscular Volume 91.5 fL (80.0-98.0); Mean Platelet Volume 8.4 fL (9.4-12.4); Monocytes Absolute Auto 0.6 X10*3/uL (0.1-1.2); Monocytes Percent Auto 6.4 % (2-11); NRBC Pct Auto 0.2 /100WBC (0.0-0.2); Neutrophils Absolute Auto 6.3 x10*3/uL (2.0-8.3); Neutrophils Percent Auto 67.4 % (45-73); Platelet Count 282 X10*3/uL (160-400); Red Cell Distribution Width 12.6 % (11.0-16.0); White Blood Count 9.4 X10*3/uL (4.8-10.8)
[2023-02-06 09:05] LABS: Alanine Aminotransferase 49 U/L (0-40); Albumin Level 3.8 g/dL (3.5-5.0); Alkaline Phosphatase 83 U/L (39-117); Anion Gap 14 (12-20); Aspartate Amino Transferase 46 U/L (5-37); Bilirubin Direct 0.2 mg/dL (0.0-0.5); Bilirubin Total 0.5 mg/dL (0.0-1.0); Blood Urea Nitrogen 10 mg/dL (9-16); Carbon Dioxide 25 mmol/L (22-29); Chloride 106 mmol/L (96-108); Creatinine Clr Calc Pharmacy 151.2; Estimated Glomerular Filt Rate > 60; Glucose Random 111 mg/dL (60-115); Potassium 4.3 mmol/L (3.3-5.1); Sodium 141 mmol/L (135-145); Total Protein 6.4 g/dL (6.5-8.0)
[2023-02-06 09:27] VITALS: BP 168/117; PULSE 66; RESP 12; TEMP 36.7; O2SAT 99
--- NOTE | 2023-02-06 10:01 | PC.NURSE ---
pt c/o sharp lower abdominal pain, reports blood and clots in watery stool at 3am. vomiting large amount at 5am. bowel sounds normal at this time, mild pain with palpation. no urinary sx.
--- NOTE | 2023-02-06 10:03 | ED.ABDPAIN ---
HPI - Abdominal Pain General Chief Complaint: Abdominal Pain Stated Complaint: sever abd pain Time Seen by Provider: 02/06/23 09:41 Source: patient Mode of arrival: ambulatory Limitations: no limitations History of Present Illness HPI narrative: 32 yo male with no signficant medical history presents to the ER for evaluation of sharp, intermittent lower abdominal pain associated with bloody stools that started at 3am today. Patient states that the pain in use intermittent, comes and goes. When it does, it is cramping and sharp in nature and is 10/10. He states he has had a few episodes of bloody bowel movements with red blood clots. He denies history of GI bleed in the past. Denies history of constipation or hemorrhoids. He reports he also vomited 2 times this morning, nonbloody. He states he ate at [employer] last night and his pain started after that. He denies any fever or chills. No urinary symptoms. MD elicited complaint: abdominal pain Pertinent past history: none Onset (ago): hour(s) Pain Consistency: intermittent Location: RLQ and LLQ Severity: similar to previous episodes Pain scale (0-10): 8 Quality: stabbing Radiation: none Migration to: no migration Exacerbating factors: nothing Relieving factors: nothing Associated symptoms: nausea, vomiting and hematochezia Related Data Previous Rx's Medication Instructions Recorded cephalexin 500 mg capsule (Keflex) 500 mg PO QID 7 days #28 caps 07/05/20 ibuprofen 600 mg tablet 600 mg PO Q8H PRN pain #30 tabs 07/05/20 amlodipine 5 mg tablet 5 mg PO DAILY #30 tabs 04/29/21 amoxicillin 500 mg capsule 500 mg PO BID #20 caps 03/15/22 ibuprofen 600 mg tablet 600 mg PO Q8H PRN fever or pain 03/15/22 #30 tabs amoxicillin 875 mg-potassium 1 tab PO Q12H 10 days #20 tabs 05/30/22 clavulanate 125 mg tablet ketorolac 10 mg tablet 10 mg PO QID PRN pain 5 days #20 05/30/22 tabs amoxicillin 875 mg tablet 875 mg PO BID 10 days #20 tabs 08/18/22 ibuprofen 800 mg tablet 800 mg PO Q8H PRN pain #14 tabs 08/18/22 oxycodone 5 mg tablet 5 mg PO Q6H PRN pain #14 tabs 08/18/22 amoxicillin 875 mg-potassium 1 tab PO BID #20 tabs 11/29/22 clavulanate 125 mg tablet ibuprofen 600 mg tablet 600 mg PO Q8H PRN pain #30 tabs 11/29/22 dicyclomine 10 mg capsule 10 mg PO QID PRN abdominal pain 02/06/23 #20 caps ondansetron 4 mg disintegrating 4 mg PO Q8H PRN nausea and 02/06/23 tablet vomiting #7 tabs Allergies Allergy/AdvReac Type Severity Reaction Status Date / Time No Known Allergies Allergy Verified 01/31/21 11:34 Review of Systems Review of Systems Yes all other systems are reviewed and are negative [facility] Past Medical History Medical History Asthma Surgical History History of tonsillectomy and adenoidectomy Social History Social History Alcohol intake: current Alcohol intake frequency: holidays/special occasions only Smoked in Last 30 Days: No Use of substances other than those prescribed or required for medical reasons: Yes Substance Use Type: Marijuana Advance Directives: No Advance Directives Information Provided: Yes Physical Exam ED Vital Signs: Vital Signs - 24 hr 02/06/23 08:37 02/06/23 09:27 Temperature 97 F 98.0 F Pulse Rate 70 66 Respiratory Rate 18 12 Blood Pressure 170/117 H 168/117 H Pulse Oximetry 100 99 Oxygen Delivery Method Room Air Room Air BMI result Body Mass Index 23.7 Appearance: Alert. Oriented X3. No acute distress. Head: normocephalic, atraumatic. Eyes: Pupils equal, round and reactive to light. ENT: Pharynx normal. No tonsillar swelling or exudate. Neck: Normal inspection. Neck supple. CVS: Normal heart rate and rhythm. Pulses normal. Respiratory: No respiratory distress. Breath sounds normal. Abdomen: Soft with mild lower abdominal tenderness to deep palpation without rebound or guarding in both the RLQ and LLQ. hypoactive +BS x4. Refusing rectal exam Skin: Skin warm and dry. Normal skin color. Normal skin turgor. No rashes. Extremities: No lower extremity edema. No joint swelling. Neuro/psych: Oriented X 3. No motor deficit. No sensory deficit. CN II-XII intact. Normal speech and cognition. Medical Decision Making Medical Decision Making [facility] Narrative: 32-year-old male presents to the ER for evaluation of intermittent abdominal pain and blood in his stool that started at 03:00 today. Started after eatin [employer]. He did have 1 episode of bloody diarrhea while he was here today unfortunately this was unable to be sent to the lab. No further diarrhea episodes in the 5 hours he was in the emergency department. His lab work was unremarkable including normal white blood cell count, normal H&H. CT scan was done which was unremarkable. Patient's pain well controlled. tolerating PO. No further bloody stools. unable to send stool sample today. labs reassuring. less likely bacterial cause such as E. coli. He is feeling better. comfortable w/ d/c home with supportive care. we discussed return precautions. stable for d/c Differential Diagnosis Differential Diagnoses: The differential diagnosis associated with the presentation includes Bacterial gastroenteritis, viral gastroenteritis, colitis, acute appendicitis, lower GI bleed, less likely brisk upper GI bleed Admission/Observation Consideration of admission/observation: Escalation of care including admission/observation considered Bloody diarrhea, abdominal pain, considered admission Lab Data [facility] Lab Attestation statement: I reviewed the patient's lab results. no anemia or leukocytosis 02/06/23 08:46 02/06/23 08:46 Labs: Lab Results 02/06/23 02/06/23 Range/Units 08:46 08:46 WBC 9.4 (4.8-10.8) X10*3/uL RBC 4.60 (4.60-5.80) X10*6/uL Hgb 14.4 (14.0-18.0) g/dl Hct 42.1 (42.0-52.0) % MCV 91.5 (80.0-98.0) fL MCH 31.3 (27.0-33.0) pg MCHC 34.2 (31.0-36.0) g/dl RDW 12.6 (11.0-16.0) % Plt Count 282 (160-400) X10*3/uL MPV 8.4 L (9.4-12.4) fL Immature Gran % (Auto) 0.4 (0.0-0.4) % Neut % (Auto) 67.4 (45-73) % Lymph % (Auto) 24.8 (20-40) % [place] % (Auto) 6.4 (2-11) % Eos % (Auto) 0.4 (0-4) % Baso % (Auto) 0.6 (0-2) % Lymph # (Auto) 2.3 (1.2-4.9) X10*3/uL [place] # (Auto) 0.6 (0.1-1.2) X10*3/uL Eos # (Auto) 0.0 (0.0-0.4) X10*3/uL Baso # (Auto) 0.1 (0.0-0.2) X10*3/uL Abs Immat Gran (auto) 0.04 H (0.00-0.03) X10*3/uL Absolute Neuts (auto) 6.3 (2.0-8.3) x10*3/uL Absolute Nucleated RBC 0.020 H (0.0-0.012) X10*3/uL Nucleated RBC % (auto) 0.2 (0.0-0.2) /100WBC Sodium 141 (135-145) mmol/L Potassium 4.3 (3.3-5.1) mmol/L Chloride 106 (96-108) mmol/L Carbon Dioxide 25 (22-29) mmol/L Anion Gap 14 (12-20) BUN 10 (9-16) mg/dL Creatinine 0.80 (0.5-1.4) mg/dL Estim Creat Clear Calc 151.2 Estimated GFR > 60 Random Glucose 111 (60-115) mg/dL Calcium 9.0 D (8.4-10.2) mg/dL Total Bilirubin 0.5 (0.0-1.0) mg/dL Direct Bilirubin 0.2 (0.0-0.5) mg/dL AST 46 H (5-37) U/L ALT 49 H (0-40) U/L Alkaline Phosphatase 83 (39-117) U/L Total Protein 6.4 L (6.5-8.0) g/dL Albumin 3.8 (3.5-5.0) g/dL Lipase 102 H (8-78) U/L Independent Interpretation I performed an independent interpretation of an: CT Scan Interpretation: unremarkable, no colonic inflammatory changes, agree w/ radiology read Radiology Impression Discussion of test interpretation with radiology: I have reviewed the radiologist's reading. Radiologist Impression: CT/CT abdomen pelvis w IV con IMPRESSION: No acute findings of the abdomen or pelvis. No inflammatory changes. External Record Review External record reviewed: Prior outpatient labs and Prior outpatient radiology Prescription Management I considered prescription management with: Pain Medication and Antibiotic Medications Administered Discontinued Medications Generic Name Dose Route Start Last Admin Trade Name Freq PRN Reason Stop Dose Admin Sodium Chloride 1,000 mls @ 999 mls/hr 02/06/23 11:00 02/06/23 11:30 Ns IVCONT 02/06/23 12:00 999 mls/hr .Q1H1M ILAN Administration Iohexol 100 ml 02/06/23 11:29 02/06/23 11:29 Iohexol 350 Mg/Ml 100 Ml Infus..Btl IV 02/06/23 11:30 85 ml ONCE ONE Administration Morphine Sulfate 4 mg 02/06/23 10:48 02/06/23 11:29 Morphine Sulfate 4 Mg/Ml Cartridge IVPUSH 02/06/23 10:49 4 mg ONCE ONE Administration Protocol Ondansetron HCl 4 mg 02/06/23 10:48 02/06/23 11:30 Ondansetron Hcl 4 Mg/2 Ml Vial IVPUSH 02/06/23 10:49 4 mg ONCE ONE Administration Critical Care Time Critical Care Time Critical Care Time: No Discharge Plan Discharge Clinical Impression: Gastroenteritis Patient Disposition: Home, Self-Care Instructions: Gastroenteritis (DC) Additional Instructions: You lab workup was normal & CT scan was normal You most likely have a viral GI bug also known as gastroenteritis. Treatment is supportive care, symptoms usually resolve on their own in 48-72 hours. Recommend rest and plenty of oral hydration. Stick to a bland diet like soup and toast while you are not feeling well. Take the prescribed medication as needed for nausea and pain. Recommend over the counter Pepto Bismol or Imodium for upset stomach and diarrhea. Follow up with your doctor as needed. If you develop new or worsening symptoms call 911 or come back to the ER for further evaluation. Prescriptions: New ondansetron 4 mg tablet,disintegrating 4 mg PO Q8H PRN (Reason: nausea and vomiting) Qty: 7 0RF dicyclomine 10 mg capsule 10 mg PO QID PRN (Reason: abdominal pain) Qty: 20 0RF No Action cephalexin [Keflex] 500 mg capsule 500 mg PO QID 7 Days Qty: 28 0RF ibuprofen 600 mg tablet 600 mg PO Q8H PRN (Reason: pain) Qty: 30 0RF amoxicillin 500 mg capsule 500 mg PO BID Qty: 20 0RF ibuprofen 600 mg tablet 600 mg PO Q8H PRN (Reason: fever or pain) Qty: 30 0RF amoxicillin-pot clavulanate 875-125 mg tablet 1 tab PO Q12H 10 Days Qty: 20 0RF ketorolac 10 mg tablet 10 mg PO QID PRN (Reason: pain) 5 Days Qty: 20 0RF Rx Instructions: Patient received toradol 30mg IM amoxicillin 875 mg tablet 875 mg PO BID 10 Days Qty: 20 0RF ibuprofen 800 mg tablet 800 mg PO Q8H PRN (Reason: pain) Qty: 14 0RF oxycodone 5 mg tablet 5 mg PO Q6H PRN (Reason: pain) Qty: 14 0RF Rx Instructions: Partial Fill upon patient request. amlodipine 5 mg tablet 5 mg PO DAILY Qty: 30 1RF amoxicillin-pot clavulanate 875-125 mg tablet 1 tab PO BID Qty: 20 0RF ibuprofen 600 mg tablet 600 mg PO Q8H PRN (Reason: pain) Qty: 30 0RF Stand Alone Forms: Work/School Release Interventions: ED Discharge Assessment Last Done: 02/06/23 13:59 Discharge Date/Time: 02/06/23 14:00
[2023-02-06 10:44] LABS: Lipase 102 U/L (8-78)
[2023-02-06] MEDS: Morphine Sulfate 4 MG/ML CARTRIDGE IVPUSH (11:29)
[2023-02-06] MEDS: iohexoL 350 MG/ML 100 ML INFUS..BTL IV (11:29)
[2023-02-06] MEDS: ondansetron HCL 4 MG/2 ML VIAL IVPUSH (11:30)
[2023-02-06] MEDS: 0.9 % Sodium Chloride 1,000 ML 999 ML IVCONT (11:30)
--- NOTE | 2023-02-06 11:51 | PC.NURSE ---
pt reported chest tightness and SOB during morphine administration. sx resolved spontaneously. Kathia PEREZ aware. no new orders.
== END 2023-02-06 14:00 | disposition home or self-care (01) ==
PROVIDERS: Physician Assistant; Emergency Provider Emergency Medicine
DX: K52.9 Noninfective gastroenteritis and colitis, unspecified (principal); Z79.899 Other long term (current) drug therapy
CPT/HCPCS: 36415; 74177; 80048; 80076; 83690; 85025; 96374; 96375; 99284; J2270; J2405; Q9967

== ENCOUNTER 2023-05-07 10:00 | Emergency (ER) | payer MEDICAID, SELFPAY ==
[2023-05-07 10:02] VITALS: BP 167/93; PULSE 84; RESP 18; TEMP 36.4; O2SAT 99; BMI 24.3
--- NOTE | 2023-05-07 10:46 | ED_ITS ---
HPI - Dental/Oral General Chief complaint: Dental/Oral Stated complaint: dental pain Time Seen by Provider: 05/07/23 10:45 Source: patient, RN notes reviewed and old records reviewed Mode of arrival: ambulatory History of Present Illness HPI Narrative: 32-year-old male with past medical history of asthma presenting to the ED complaining of left upper dental abscess x months however noted popped this morning with drainage while brushing teeth. Also reports dry skin to bilateral hands s/p starting new job working for [email or web address]. Denies wearing gloves, new soaps/lotions, detergents or exposures. Admits hand rash improves with lotion. Reports subjective fever. Denies chills, ear pain, difficulty/inability to swallow, SOB, known insect bites MD Complaint: tooth pain Related Data Previous Rx's Medication Instructions Recorded cephalexin 500 mg capsule (Keflex) 500 mg PO QID 7 days #28 caps 07/05/20 ibuprofen 600 mg tablet 600 mg PO Q8H PRN pain #30 tabs 07/05/20 amlodipine 5 mg tablet 5 mg PO DAILY #30 tabs 04/29/21 amoxicillin 500 mg capsule 500 mg PO BID #20 caps 03/15/22 ibuprofen 600 mg tablet 600 mg PO Q8H PRN fever or pain 03/15/22 #30 tabs amoxicillin 875 mg-potassium 1 tab PO Q12H 10 days #20 tabs 05/30/22 clavulanate 125 mg tablet ketorolac 10 mg tablet 10 mg PO QID PRN pain 5 days #20 05/30/22 tabs amoxicillin 875 mg tablet 875 mg PO BID 10 days #20 tabs 08/18/22 ibuprofen 800 mg tablet 800 mg PO Q8H PRN pain #14 tabs 08/18/22 oxycodone 5 mg tablet 5 mg PO Q6H PRN pain #14 tabs 08/18/22 amoxicillin 875 mg-potassium 1 tab PO BID #20 tabs 11/29/22 clavulanate 125 mg tablet ibuprofen 600 mg tablet 600 mg PO Q8H PRN pain #30 tabs 11/29/22 dicyclomine 10 mg capsule 10 mg PO QID PRN abdominal pain 02/06/23 #20 caps ondansetron 4 mg disintegrating 4 mg PO Q8H PRN nausea and 02/06/23 tablet vomiting #7 tabs amoxicillin 875 mg-potassium 1 tab PO BID 7 days #14 tabs 05/07/23 clavulanate 125 mg tablet Allergies Allergy/AdvReac Type Severity Reaction Status Date / Time No Known Allergies Allergy Verified 01/31/21 11:34 Review of Systems Review of Systems: Constitutional: No Fever, No Chills ENT/Mouth: No Ear Pain, No Nasal Congestion, +dental pain, No sore throat, No Rhinorrhea, No Swallowing Difficulty Cardiovascular: No Chest Pain, No SOB Respiratory: No Cough, No Sputum Gastrointestinal: No Nausea, No Vomiting, No Abdominal pain Musculoskeletal: No joint pain, No Myalgias, No Joint Swelling Skin: +Skin Lesions, No rash Neuro: No Weakness Yes all other systems are reviewed and are negative Constitutional: Constitutional: Reports as per [facility] Past Medical History Attestation statement: The following information was validated with the patient. Source: old records reviewed Medical History Asthma Surgical History History of tonsillectomy and adenoidectomy Social History Social History Alcohol intake: current Alcohol intake frequency: holidays/special occasions only Substance Use Type: Marijuana Physical Exam Vital Signs: Vital Signs: Last Vital Signs Temp 97.5 F 05/07/23 10:02 Pulse 84 05/07/23 10:02 Resp 18 05/07/23 10:02 BP 167/93 H 05/07/23 10:02 Pulse Ox 99 05/07/23 10:02 O2 Del Method Room Air 05/07/23 10:02 BMI result Body Mass Index 24.3 Const: General: cooperative, healthy appearing and no acute distress Orientation/consciousness: patient oriented x3 Limitations: no limitations HEENT: Other: + left upper 2nd molar with popped absce ss medially. Mildly tender. No cellulitis or fluctuance. No induration. No active drainage. No facial swelling. Head: Yes normal to inspection and Yes atraumatic Ears: hearing grossly normal bilaterally General nose exam: Normal external nose present Face and sinus: Yes normal facial exam Mouth: no audible dysphonia and no drooling Throat: Yes posterior oropharynx normal, Yes uvula midline, No uvula laterally displaced and No uvular edema Eyes: General: appearance normal, both eyes and all related structures EOM: EOMs intact bilaterally Neck: Neck: Yes normal visual inspection, Yes no meningeal signs, No anterior neck swelling and No torticollis Resp: Effort & Inspection: normal respiratory effort, no respiratory distress and no stridor Cardio: Rate: regular rate Skin: Other: + dry skin noted to bilateral hands palm ar aspect. Some patient induced peeling noted. No sloughing. No erythema/papules or macules. Wounds: no wounds Neuro: General: patient oriented x3, tone normal and no meningeal signs Cranial nerves: Yes CN's II-XII intact bilaterally Gait exam (Neuro): Normal gait present Extrem: General: Yes normal to inspection Medical Decision Making Medical Decision Making MDM Narrative: 32-year-old male with past medical history of asthma presenting to the ED complaining of left upper dental abscess x months however noted popped this morning with drainage while brushing teeth. Also reports dry skin to bilateral hands s/p starting new job working for [employer]. On exam vital signs stable, NAD, nontoxic appearing with physical exam as above. Concern for dental abscess which is popped. No fluctuance or induration. Dry skin noted to bilateral [place] concerning for dermatitis likely from elemental changes. Low suspicion for SUBEDITOR, retropharyngeal abscess, or tick/insect bite or SJS/TENs Plan: PO Abx, Topical lotion Please refer to course for remaining clinical decision making, interpretation of labs/imaging results, and discussions with consultants and/or family members. Differential Diagnosis Differential Diagnoses: The differential diagnosis associated with the p resentation includes As above External Record Review External record reviewed: Inpatient record, Office record, Outpatient record, Prior outpatient labs, Prior outpatient radiology, Primary care record and Outside ED record Tests considered The following testing was considered but not selected: As above Discharge Plan Discharge Clinical Impression: Dental abscess, Dry skin dermatitis Patient Disposition: Home, Self-Care Instructions: Dental Abscess (ED) Additional Instructions: Please follow-up with a dentist Gargle with warm salt water Augmentin is an antibiotic please take as prescribed In addition apply Eucerin or Aquaphor to your hands Keep moist. If symptoms persist or worsen return to the ED Prescriptions: New amoxicillin-pot clavulanate 875-125 mg tablet 1 tab PO BID 7 Days Qty: 14 0RF No Action cephalexin [Keflex] 500 mg capsule 500 mg PO QID 7 Days Qty: 28 0RF ibuprofen 600 mg tablet 600 mg PO Q8H PRN (Reason: pain) Qty: 30 0RF amoxicillin 500 mg capsule 500 mg PO BID Qty: 20 0RF ibuprofen 600 mg tablet 600 mg PO Q8H PRN (Reason: fever or pain) Qty: 30 0RF amoxicillin-pot clavulanate 875-125 mg tablet 1 tab PO Q12H 10 Days Qty: 20 0RF ketorolac 10 mg tablet 10 mg PO QID PRN (Reason: pain) 5 Days Qty: 20 0RF Rx Instructions: Patient received toradol 30mg IM amoxicillin 875 mg tablet 875 mg PO BID 10 Days Qty: 20 0RF ibuprofen 800 mg tablet 800 mg PO Q8H PRN (Reason: pain) Qty: 14 0RF oxycodone 5 mg tablet 5 mg PO Q6H PRN (Reason: pain) Qty: 14 0RF Rx Instructions: Partial Fill upon patient request. amlodipine 5 mg tablet 5 mg PO DAILY Qty: 30 1RF amoxicillin-pot clavulanate 875-125 mg tablet 1 tab PO BID Qty: 20 0RF ibuprofen 600 mg tablet 600 mg PO Q8H PRN (Reason: pain) Qty: 30 0RF ondansetron 4 mg tablet,disintegrating 4 mg PO Q8H PRN (Reason: nausea and vomiting) Qty: 7 0RF dicyclomine 10 mg capsule 10 mg PO QID PRN (Reason: abdominal pain) Qty: 20 0RF Referrals: Shad Cano DMD [Dentist] - Petros Brooke, COLLIN [Dentist] - Zoë Morales, COLLIN [Dentist] - Artemio Ruiz DDS [Physician] -
== END 2023-05-07 11:34 | disposition home or self-care (01) ==
PROVIDERS: Emergency Provider Emergency Medicine
DX: K04.7 Periapical abscess without sinus (principal); L30.9 Dermatitis, unspecified; Z79.899 Other long term (current) drug therapy
CPT/HCPCS: 99282; 99283

== ENCOUNTER 2023-11-05 08:50 | Emergency (ER) | payer MEDICAID, SELFPAY ==
[2023-11-05 09:21] VITALS: BP 175/99; PULSE 92; RESP 16; TEMP 37.1; O2SAT 99; BMI 22.9
--- NOTE | 2023-11-05 10:27 | ED_ITS ---
HPI - Ear Problem General Chief complaint: Ear Problems Stated complaint: Bit by insect? Swollen L ear Time Seen by Provider: 11/05/23 09:44 Source: patient and RN notes reviewed Mode of arrival: ambulatory Limitations: no limitations History of Present Illness HPI Narrative: This is a 33-year-old male, with no known medical problems, who presents emergency department complaints of left ear pain and swelling x3 days. Patient states that he thought he was bit by an insect just below his left ear. He has had increased pain, swelling and has now has increased pain and swelling throughout his external ear. He denies any fevers, chills, chest pain, shortness of breath, abdominal pain, nausea, vomiting or diarrhea. Denies any headache or dizziness. He is taking any medications at home to treat his current symptoms. Denies any head trauma. Denies ringing in his ear. No ear discharge or decreased hearing No other complaints or concerns at this time. MD Complaint: ear discharge Location: left ear Duration: constant Severity: moderate Relieving factors: nothing Exacerbating factors: nothing Discharge from ear: no Associated symptoms ear: ear swelling Treatment prior to arrival: none Related Data Previous Rx's ?Medication ?Instructions ?Recorded cephalexin 500 mg capsule (Keflex) 500 mg PO QID 7 days #28 caps 07/05/20 ibuprofen 600 mg tablet 600 mg PO Q8H PRN pain #30 tabs 07/05/20 amlodipine 5 mg tablet 5 mg PO DAILY #30 tabs 04/29/21 amoxicillin 500 mg capsule 500 mg PO BID #20 caps 03/15/22 ibuprofen 600 mg tablet 600 mg PO Q8H PRN fever or pain 03/15/22 #30 tabs amoxicillin 875 mg-potassium 1 tab PO Q12H 10 days #20 tabs 05/30/22 clavulanate 125 mg tablet ketorolac 10 mg tablet 10 mg PO QID PRN pain 5 days #20 05/30/22 tabs amoxicillin 875 mg tablet 875 mg PO BID 10 days #20 tabs 08/18/22 ibuprofen 800 mg tablet 800 mg PO Q8H PRN pain #14 tabs 08/18/22 oxycodone 5 mg tablet 5 mg PO Q6H PRN pain #14 tabs 08/18/22 amoxicillin 875 mg-potassium 1 tab PO BID #20 tabs 05/10/23 clavulanate 125 mg tablet ibuprofen 600 mg tablet 600 mg PO Q8H PRN pain #30 tabs 11/29/22 dicyclomine 10 mg capsule 10 mg PO QID PRN abdominal pain 02/06/23 #20 caps ondansetron 4 mg disintegrating 4 mg PO Q8H PRN nausea and 02/06/23 tablet vomiting #7 tabs amoxicillin 875 mg-potassium 1 tab PO BID 7 days #14 tabs 05/07/23 clavulanate 125 mg tablet acetaminophen 325 mg tablet 650 mg (2 x 325 mg) PO Q6H PRN 11/05/23 (Tylenol) pain #30 tabs cephalexin 500 mg capsule 500 mg PO QID 7 days #28 caps 11/05/23 ibuprofen 600 mg tablet 600 mg PO Q6H PRN fever or pain 11/05/23 #30 tabs prednisone 20 mg tablet 40 mg (2 x 20 mg) PO DAILY 5 days 11/05/23 #10 tabs Allergies Allergy/AdvReac Type Severity Reaction Status Date / Time No Known Allergies Allergy Verified 11/05/23 09:24 Review of Systems 2 Review of Systems: Yes Unobtainable due to mental condition Constitutional: Constitutional: Reports as per [facility] Past Medical History Medical History Asthma Surgical History History of tonsillectomy and adenoidectomy Social History Social History Alcohol intake: current Alcohol intake frequency: holidays/special occasions only Substance Use Type: Marijuana Advance Directives: No Advance Directives Information Provided: Yes Physical Exam 2 Vital Signs: Vital Signs: Last Vital Signs Temp 98.8 F 11/05/23 09:21 Pulse 92 11/05/23 09:21 Resp 16 11/05/23 09:21 BP 175/99 H 11/05/23 09:21 Pulse Ox 99 11/05/23 09:21 O2 Del Method Room Air 11/05/23 09:21 BMI result Body Mass Index 22.9 Const: General: cooperative, comfortable and no acute distress O rientation/consciousness: patient oriented x3 Limitations: no limitations HEENT: Other: Left external ear is erythematous, and edematous, no swelling overlying the mastoid, no fluctuance or induration. Mild swelling and erythema noted just inferior to the left earlobe. Left TM is nonerythematous, nonbulging. Right TM unremarkable. Head: Yes normal to inspection, Yes normocephalic and Yes atraumatic E ars: hearing grossly normal bilaterally General nose exam: Normal external nose present Face and sinus: Yes normal facial exam Mouth: Normal oral and palatal mucosa present, oropharynx normal and moist mucous membranes Throat: Yes posterior oropharynx normal Eyes: General: appearance normal, both eyes and all related structures E yelids: Yes eyelids normal Conjunctivae: conjunctivae normal Sclerae: s clerae normal Pupils: Equal, round and reactive pupils present EOM: EOMs intact bilaterally Neck: Neck: Yes normal visual inspection, Yes full ROM and Yes no lymphadenopathy Lymphatic: no lymphadenopathy noted Chest: Chest palpation & inspection: normal inspection of the chest Resp: Effort & Inspection: normal respiratory effort and able to speak in complete sentences Auscultation: clear to auscultation bilaterally, no crackles, no rales, no rhonchi and no wheezes Cardio: Rate: regular rate Rhythm: regular rhythm Heart sounds: S1 normal heart sound present and S2 normal heart sound present GI: Inspection: Yes normal to inspection Skin: General skin exam: no rashes or lesions noted Trauma: no lacerations or abrasions Wounds: no wounds Neuro: General: patient oriented x3 and moves all extremities Cranial nerves: Yes Equal, round and reactive pupils present Extrem: General: Yes normal to inspection Right upper extremity: normal to inspection Left upper extremity: normal to inspection Right lower extremity: normal to inspection Left lower extremity: normal to inspection Medical Decision Making Medical Decision Making [facility] Narrative: This is a 33-year-old male, with no known medical problems, who presents emergency department with complaints of left ear pain, redness, and swelling x3 days. Patient believes he was bit by an insect several days ago and has noticed increased swelling, pain, and redness to his left external ear. Differential diagnoses include cellulitis, otitis media, externa, mastoiditis-unlikely. He does not have any fluctuance or swelling along his mastoid, able to open and close his jaw. TM is unremarkable. Likely external ear infection/cellulitis. I discussed case with my attending physician, Dr. Hernández, who recommends treatment with Keflex and prednisone, given strict return precautions. He has no risk factors for MRSA. No IV drug use. Patient understands and agrees with plan. Patient stable for discharge Differential Diagnosis Differential Diagnoses: The differential diagnosis associated with the presentation includes See above Admission/Observation Consideration of admission/observation: Escalation of care including admission/observation considered Escalation of care including admission/observation considered however given workup today not warranted at this time. Discharge Plan Discharge Clinical Impression: Acute infection of external ear Patient Disposition: Home, Self-Care Instructions: Cellulitis (ED) Additional Instructions: Your seen in the emergency department due to swelling of your external ear. You have a skin infection causing you to have pain, swelling and inflammation. You have a skin infection, please take prescribed antibiotic as directed, and use prednisone to help reduce swelling. Drink plenty fluids get plenty of rest. Take ibuprofen and/or Tylenol as needed for pain and symptoms. If any new or worsening symptoms occur including but not limited to sitting swelling, worsening pain, fevers, chills, chest pain, shortness of breath, please return for re-evaluation. Prescriptions: New cephalexin 500 mg capsule 500 mg PO QID 7 Days Qty: 28 0RF prednisone 20 mg tablet 40 mg PO DAILY 5 Days Qty: 10 0RF ibuprofen 600 mg tablet 600 mg PO Q6H PRN (Reason: fever or pain) Qty: 30 0RF acetaminophen [Tylenol] 325 mg tablet 650 mg PO Q6H PRN (Reason: pain) Qty: 30 0RF No Action cephalexin [Keflex] 500 mg capsule 500 mg PO QID 7 Days Qty: 28 0RF ibuprofen 600 mg tablet 600 mg PO Q8H PRN (Reason: pain) Qty: 30 0RF amoxicillin 500 mg capsule 500 mg PO BID Qty: 20 0RF ibuprofen 600 mg tablet 600 mg PO Q8H PRN (Reason: fever or pain) Qty: 30 0RF amoxicillin-pot clavulanate 875-125 mg tablet 1 tab PO Q12H 10 Days Qty: 20 0RF ketorolac 10 mg tablet 10 mg PO QID PRN (Reason: pain) 5 Days Qty: 20 0RF Rx Instructions: Patient received toradol 30mg IM amoxicillin 875 mg tablet 875 mg PO BID 10 Days Qty: 20 0RF ibuprofen 800 mg tablet 800 mg PO Q8H PRN (Reason: pain) Qty: 14 0RF oxycodone 5 mg tablet 5 mg PO Q6H PRN (Reason: pain) Qty: 14 0RF Rx Instructions: Partial Fill upon patient request. amlodipine 5 mg tablet 5 mg PO DAILY Qty: 30 1RF amoxicillin-pot clavulanate 875-125 mg tablet 1 tab PO BID 7 Days Qty: 14 0RF amoxicillin-pot clavulanate 875-125 mg tablet 1 tab PO BID Qty: 20 0RF ibuprofen 600 mg tablet 600 mg PO Q8H PRN (Reason: pain) Qty: 30 0RF ondansetron 4 mg tablet,disintegrating 4 mg PO Q8H PRN (Reason: nausea and vomiting) Qty: 7 0RF dicyclomine 10 mg capsule 10 mg PO QID PRN (Reason: abdominal pain) Qty: 20 0RF Stand Alone Forms: Work/School Release Print Language: Jamaican
[2023-11-05 10:52] VITALS: BP 169/121; PULSE 93; RESP 14; TEMP 36.9; O2SAT 98
== END 2023-11-05 10:53 | disposition home or self-care (01) ==
PROVIDERS: Emergency Provider Emergency Medicine
DX: H60.392 Other infective otitis externa, left ear (principal)
CPT/HCPCS: 99282; 99283

== ENCOUNTER 2023-12-08 08:29 | Emergency (ER) | payer MEDICAID, SELFPAY ==
[2023-12-08 08:39] VITALS: BP 177/122; PULSE 57; RESP 18; TEMP 36.6; O2SAT 98; BMI 23.7
[2023-12-08 09:05] VITALS: BP 183/125; PULSE 69; RESP 15; TEMP 36.6; O2SAT 98
--- NOTE | 2023-12-08 09:05 | ED.GENADULT ---
HPI - General Adult General Chief complaint: Dental/Oral Stated complaint: toothache Time Seen by Provider: 12/08/23 09:02 Source: patient Mode of arrival: ambulatory Limitations: no limitations History of Present Illness ED Provider: Tabatha Ying NP [facility] narrative: Patient is a 33-year-old male presenting to emergency department complaint of left upper jaw pain for the past 2 days. States that he has a tooth which he was told previously needed extraction but he never had this procedure performed. Denies any discharge or drainage. Denies fevers. States he has been unable to eat due to pain, unable to sleep due to pain. Denies history of hypertension but states he has not seen a doctor in several years. Denies chest pain, palpitations, dyspnea, headaches, vision changes, dizziness or lightheadedness. MD complaint: Dental pain Onset (ago): day(s) Location: mouth Radiation: non-radiation Severity: severe Quality: aching Pain Consistency: constant Relieving factors: none Exacerbating factors: eating Associated symptoms: denies other symptoms Treatments prior to arrival: none Related Data Previous Rx's ?Medication ?Instructions ?Recorded amoxicillin 875 mg-potassium 1 tab PO TID 7 days #21 tabs 12/08/23 clavulanate 125 mg tablet oxycodone 5 mg tablet 5 mg PO Q6H PRN severe pain (scale 12/08/23 score 7-10) #8 tabs Allergies Allergy/AdvReac Type Severity Reaction Status Date / Time No Known Allergies Allergy Verified 12/08/23 08:40 Review of Systems Review of Systems: As per HPI. Yes all other systems are reviewed and are negative Constitutional: Constitutional: Reports as per HPI [facility] Social History Social History Advance Directives: No Advance Directives Information Provided: Yes Physical Exam ED Vital Signs: Vital Signs - 24 hr 12/08/23 08:39 12/08/23 09:05 Temperature 98 F 97.8 F Pulse Rate 57 69 Respiratory Rate 18 15 Blood Pressure 177/122 H 183/125 H Pulse Oximetry 98 98 Oxygen Delivery Method Room Air Room Air BMI result Body Mass Index 23.7 Vital signs have been reviewed and appear to be correct. Blood pressure elevated. Heart rate normal. Respiratory rate normal. Temperature normal. Oxygen saturation normal. Const General: cooperative, healthy appearing and no acute distress Orientation/consciousness: oriented to person, oriented to place, oriented to time and patient oriented x3 Limitations: no limitations HENMT Head: Yes normocephalic and Yes atraumatic Ears: external ears normal General nose exam: Normal external nose present Face and sinus: Yes face symmetric Mouth: Normal oral and palatal mucosa present, oropharynx normal, moist mucous membranes, no drooling and no trismus Teeth and gingiva: poor dentition Teeth image: 1. dental caries, surrounding gingiva erythematous, tender, no fluctuance or drainage Throat: Yes uvula midline Eyes Pupils: Equal, round and reactive pupils present Neck Neck: Yes normal visual inspection, Yes full ROM, Yes no lymphadenopathy, Yes trachea midline and Yes supple Resp Effort & Inspection: normal respiratory effort and able to speak in complete sentences Auscultation: clear to auscultation bilaterally Cardio Rate: regular rate Rhythm: regular rhythm Heart sounds: S1 normal heart sound present and S2 normal heart sound present GI Palpation (GI): Soft to palpation and nontender Auscultation: normoactive bowel sounds General: Yes no CVA tenderness Back/Spine/Pelvis Back: no CVA tenderness Skin General skin exam: elasticity normal and turgor normal Neuro General: oriented to person, oriented to place, oriented to time, patient oriented x3, moves all extremities, no focal motor deficits and CN's II-XI intact bilaterally Cranial nerves: Yes Equal, round and reactive pupils present Cognition (Neuro): normal cognition Extrem General: Yes full ROM, Yes no pedal edema and Yes no calf tenderness Psych Mental Status: mental status grossly normal Affect: normal affect Thought process: Normal thought process present Medical Decision Making Medical Decision Making MDM Narrative: Patient is a 33-year-old male presenting to emergency department complaint of left upper jaw pain for the past 2 days. On exam patient is awake, A+Ox3, BP elevated, VS otherwise WNL, afebrile, normal neurological exam without focal deficits, physical exam findings as above. Given reported symptoms and physical exam findings, initial differential includes dental caries, dental infection, abscess. Feel BP is secondary to pain as patient denies any other symptoms or history of same. Will instruct patient to follow-up with his PCP for a recheck. Will treat patient with course of antibiotics, oxycodone for severe pain. No concerns on review of [employer]. Instructed patient on importance of following up with dentist as soon as possible. Return precautions discussed. Patient verbalized understanding of and agreement with plan. Differential Diagnosis Differential Diagnoses: The differential diagnosis associated with the presentation includes As per MDM. External Record Review External record reviewed: Inpatient record, Office record and Outpatient record Prescription Management I considered prescription management with: Pain Medication and Antibiotic Discharge Plan Discharge Clinical Impression: Dental infection, Pain, dental Patient Disposition: Home, Self-Care Instructions: Toothache (ED), Root Canal (DC) Additional Instructions: You were evaluated in the emergency department today for complaint of dental pain. You are being treated for a dental infection with antibiotics. Please complete the full course of antibiotics as prescribed even if your symptoms improve. You are being prescribed a small amount of oxycodone for severe pain. We also recommend taking 600 mg ibuprofen or 650 mg Tylenol every 6 hours as needed. If necessary, you can alternate these medications every 3 hours. For example, at 9:00 a.m. take Tylenol, then at noon take ibuprofen, then at 3:00 p.m. take Tylenol, etc.. You can also swish warm salt water in your mouth several times daily. IT IS IMPORTANT THAT YOU FOLLOW UP WITH A DENTIST SOON POSSIBLE. Return to the emergency department if you develop worsening pain, swelling, difficulty swallowing, difficulty breathing, new drainage, fever, or any other concerning symptoms. Call or visit any of the clinics below to establish care with a dentist: [facility] [address] [place] [address] [facility] [address] [facility], [address] [address] [place] [id number] [facility] [address] [place] [id number] [facility] [address] [place] [address] [place] [address] [place] [address] Prescriptions: New amoxicillin-pot clavulanate 875-125 mg tablet 1 tab PO TID 7 Days Qty: 21 0RF oxycodone 5 mg tablet 5 mg PO Q6H PRN (Reason: severe pain (scale score 7-10)) Qty: 8 0RF Rx Instructions: Partial Fill upon patient request. Print Language: Peruvian
[2023-12-08 10:33] VITALS: BP 183/125; PULSE 69; RESP 15; TEMP 36.6; O2SAT 98
== END 2023-12-08 10:34 | disposition home or self-care (01) ==
PROVIDERS: Emergency Provider Emergency Medicine
DX: K04.7 Periapical abscess without sinus (principal); K08.89 Other specified disorders of teeth and supporting structures; R68.84 Jaw pain
CPT/HCPCS: 99283

== ENCOUNTER 2024-01-16 06:18 | Emergency (ER) | payer MEDICAID, SELFPAY ==
--- NOTE | 2024-01-16 | ECG_ITS ---
Test Reason : SEEKING DETOX Blood Pressure : / mmHG Vent. Rate : 079 BPM Atrial Rate : 079 BPM P-R Int : 150 ms QRS Dur : 100 ms QT Int : 402 ms P-R-T Axes : 027 022 030 degrees QTc Int : 460 ms Normal sinus rhythm Minimal voltage criteria for LVH, may be normal variant ( Sokolow-Francis ) Borderline ECG No previous ECGs available Referred By: Generic ED Physician Electronically Signed By:ELIJAH VALLADARES MD
[2024-01-16 06:24] VITALS: BP 171/109; PULSE 94; RESP 181; TEMP 36.7; O2SAT 97; BMI 22.1
[2024-01-16 06:36] VITALS: BP 159/105; PULSE 109; RESP 17; O2SAT 97
[2024-01-16 06:38] VITALS: PULSE 89
--- NOTE | 2024-01-16 06:40 | PC.NURSE ---
security called to take beloning to [facility]
--- NOTE | 2024-01-16 07:10 | PC.NURSE ---
Addendum entered by Rodriguez Stack RN 01/16/24 07:17: MD Newell present at bedside and willing to dc pt with list of detox facilities. pt instructed to return to ED for any further concerns. Original Note: first contact with pt, pt states he has to leave to go to his job or he will be fired. Pt alert and oriented, ambulatory with steady gait. fully dressed with all belongings with pt. made aware. Pt leaving AMA.
--- NOTE | 2024-01-16 07:17 | ED.ALCOHOL ---
HPI - Alcohol General Chief Complaint: ETOH/Substance Use Stated Complaint: seeking help, possible detox Time Seen by Provider: 01/16/24 07:02 Source: patient Mode of arrival: ambulatory Limitations: no limitations History of Present Illness ED Provider: Dr. Newell HPI narrative: Patient presents for alcohol dependency and wants help he just can't stay but he has 20 years of alcohol use. Patient states that if he doesn't drink he gets the shakes and he does go into withdrawal. He denies suicidal or homicidal ideation. MD complaint: alcohol dependence Chronic alcohol use: Yes Previous visits for alcohol intoxication: Yes Related Data Previous Rx's ?Medication ?Instructions ?Recorded cephalexin 500 mg capsule (Keflex) 500 mg PO QID 7 days #28 caps 07/05/20 ibuprofen 600 mg tablet 600 mg PO Q8H PRN pain #30 tabs 07/05/20 amlodipine 5 mg tablet 5 mg PO DAILY #30 tabs 04/29/21 amoxicillin 500 mg capsule 500 mg PO BID #20 caps 03/15/22 ibuprofen 600 mg tablet 600 mg PO Q8H PRN fever or pain 03/15/22 #30 tabs amoxicillin 875 mg-potassium 1 tab PO Q12H 10 days #20 tabs 05/30/22 clavulanate 125 mg tablet ketorolac 10 mg tablet 10 mg PO QID PRN pain 5 days #20 05/30/22 tabs amoxicillin 875 mg tablet 875 mg PO BID 10 days #20 tabs 08/18/22 ibuprofen 800 mg tablet 800 mg PO Q8H PRN pain #14 tabs 08/18/22 oxycodone 5 mg tablet 5 mg PO Q6H PRN pain #14 tabs 08/18/22 amoxicillin 875 mg-potassium 1 tab PO BID #20 tabs 11/29/22 clavulanate 125 mg tablet ibuprofen 600 mg tablet 600 mg PO Q8H PRN pain #30 tabs 11/29/22 dicyclomine 10 mg capsule 10 mg PO QID PRN abdominal pain 02/06/23 #20 caps ondansetron 4 mg disintegrating 4 mg PO Q8H PRN nausea and 02/06/23 tablet vomiting #7 tabs amoxicillin 875 mg-potassium 1 tab PO BID 7 days #14 tabs 05/07/23 clavulanate 125 mg tablet acetaminophen 325 mg tablet 650 mg (2 x 325 mg) PO Q6H PRN 11/05/23 (Tylenol) pain #30 tabs cephalexin 500 mg capsule 500 mg PO QID 7 days #28 caps 11/05/23 ibuprofen 600 mg tablet 600 mg PO Q6H PRN fever or pain 11/05/23 #30 tabs prednisone 20 mg tablet 40 mg (2 x 20 mg) PO DAILY 5 days 11/05/23 #10 tabs amoxicillin 875 mg-potassium 1 tab PO TID 7 days #21 tabs 12/08/23 clavulanate 125 mg tablet oxycodone 5 mg tablet 5 mg PO Q6H PRN severe pain (scale 12/08/23 score 7-10) #8 tabs Allergies Allergy/AdvReac Type Severity Reaction Status Date / Time No Known Allergies Allergy Verified 01/16/24 06:26 Review of Systems Review of Systems: Yes all other systems are reviewed and are negative Neurologic: Denies Sensory deficit (Neuro) [facility] Past Medical History Medical History Asthma Surgical History History of tonsillectomy and adenoidectomy Social History Social History Alcohol intake: current Alcohol intake frequency: holidays/special occasions only Smoked in Last 30 Days: No Substance Use Type: Marijuana Advance Directives: No Advance Directives Information Provided: No Do you have a plan to hurt others: No Plan Physical Exam ED Vital Signs: Vital Signs - 24 hr 01/16/24 06:24 01/16/24 06:36 01/16/24 06:38 Temperature 98.1 F Pulse Rate 94 109 H 89 Respiratory Rate 181 H 17 Blood Pressure 171/109 H 159/105 H Pulse Oximetry 97 97 Oxygen Delivery Method Room Air Room Air BMI result Body Mass Index 22.1 Const General: healthy appearing Nutritional Appearance: average body habitus Orientation/consciousness: oriented to person and patient oriented x3 Limitations: no limitations HENMT Head: Yes normal to inspection Ears: external ears normal General nose exam: Normal external nose present Mouth: Normal oral and palatal mucosa present and oropharynx normal Throat: Yes posterior oropharynx normal Eyes General: appearance normal, both eyes and all related structures Neck Neck: Yes normal visual inspection Chest Chest palpation & inspection: normal inspection of the chest Resp Auscultation: clear to auscultation bilaterally Cardio Jugular venous distension: no JVD Rate: regular rate Rhythm: regular rhythm Heart sounds: S1 normal heart sound present and S2 normal heart sound present GI Inspection: Yes normal to inspection Palpation (GI): Soft to palpation, nontender and No hepatosplenomegaly present Auscultation: normal bowel sounds General: Yes no CVA tenderness Back/Spine/Pelvis Back: no CVA tenderness Skin General skin exam: no rashes or lesions noted Neuro General: oriented to person and patient oriented x3 Cranial nerves: Yes CN's II-XII intact bilaterally Motor exam (neuro): 5/5 motor strength present throughout Sensory Exam: No Sensory deficit (Neuro) Extrem General: Yes normal to inspection Psych Appearance: grossly normal Course Reevaluation(s) Reevaluation #1: patient unable to stay due to work, he is not suicidal or homicidal, he is not acutely intoxicated and not in withdrawal currently Time: 07:20 Medical Decision Making Differential Diagnosis Differential Diagnoses: The differential diagnosis associated with the presentation includes (alcohol dependency, alcohol withdrawal) Admission/Observation Consideration of admission/observation: Escalation of care including admission/observation considered (upon arrival patient considered for admission) Independent Interpretation I performed an independent interpretation of an: EKG (sinus 80, no st or twave changes) Chronic Conditions Patient?s care impacted by: Other (alcoholism) Social Determinants Patient?s care significantly limited by Social Determinants of Health including: Alcoholism and drug addiction in family Discharge Plan Discharge Clinical Impression: Alcoholism Patient Disposition: Home, Self-Care Additional Instructions: Patient given a list of detox places Prescriptions: No Action cephalexin [Keflex] 500 mg capsule 500 mg PO QID 7 Days Qty: 28 0RF ibuprofen 600 mg tablet 600 mg PO Q8H PRN (Reason: pain) Qty: 30 0RF amoxicillin 500 mg capsule 500 mg PO BID Qty: 20 0RF ibuprofen 600 mg tablet 600 mg PO Q8H PRN (Reason: fever or pain) Qty: 30 0RF amoxicillin-pot clavulanate 875-125 mg tablet 1 tab PO Q12H 10 Days Qty: 20 0RF ketorolac 10 mg tablet 10 mg PO QID PRN (Reason: pain) 5 Days Qty: 20 0RF Rx Instructions: Patient received toradol 30mg IM amoxicillin 875 mg tablet 875 mg PO BID 10 Days Qty: 20 0RF ibuprofen 800 mg tablet 800 mg PO Q8H PRN (Reason: pain) Qty: 14 0RF oxycodone 5 mg tablet 5 mg PO Q6H PRN (Reason: pain) Qty: 14 0RF Rx Instructions: Partial Fill upon patient request. amlodipine 5 mg tablet 5 mg PO DAILY Qty: 30 1RF amoxicillin-pot clavulanate 875-125 mg tablet 1 tab PO BID 7 Days Qty: 14 0RF amoxicillin-pot clavulanate 875-125 mg tablet 1 tab PO BID Qty: 20 0RF ibuprofen 600 mg tablet 600 mg PO Q8H PRN (Reason: pain) Qty: 30 0RF ondansetron 4 mg tablet,disintegrating 4 mg PO Q8H PRN (Reason: nausea and vomiting) Qty: 7 0RF dicyclomine 10 mg capsule 10 mg PO QID PRN (Reason: abdominal pain) Qty: 20 0RF cephalexin 500 mg capsule 500 mg PO QID 7 Days Qty: 28 0RF prednisone 20 mg tablet 40 mg PO DAILY 5 Days Qty: 10 0RF ibuprofen 600 mg tablet 600 mg PO Q6H PRN (Reason: fever or pain) Qty: 30 0RF acetaminophen [Tylenol] 325 mg tablet 650 mg PO Q6H PRN (Reason: pain) Qty: 30 0RF amoxicillin-pot clavulanate 875-125 mg tablet 1 tab PO TID 7 Days Qty: 21 0RF oxycodone 5 mg tablet 5 mg PO Q6H PRN (Reason: severe pain (scale score 7-10)) Qty: 8 0RF Rx Instructions: Partial Fill upon patient request. Referrals: Physician,Unknown J [Primary Care Provider] - 5 days Print Language: Japanese
[2024-01-16 07:33] VITALS: BP 159/105; PULSE 89; RESP 17; TEMP 36.7; O2SAT 97
== END 2024-01-16 07:34 | disposition home or self-care (01) ==
PROVIDERS: Emergency Provider Emergency Medicine
DX: F10.20 Alcohol dependence, uncomplicated (principal)
CPT/HCPCS: 93005; 99283; 99285

== ENCOUNTER → 2024-01-16 06:45 | Outpatient (BNV) | payer MEDICAID, SELFPAY | PROVIDERS: Emergency Provider Emergency Medicine; Visit Provider Internal Medicine Cardiovascular Disease | DX: F10.20 Alcohol dependence, uncomplicated (principal) | CPT/HCPCS: 93010 ==

== ENCOUNTER 2024-04-02 09:42 | Emergency (ER) | payer MEDICAID, SELFPAY ==
[2024-04-02 09:51] VITALS: BP 155/101; PULSE 84; RESP 18; TEMP 36.7; O2SAT 99; BMI 23.4
--- NOTE | 2024-04-02 10:39 | ED_ITS ---
HPI - General Adult General Chief complaint: Dental/Oral Stated complaint: toothache Time Seen by Provider: 04/02/24 10:39 Source: patient Mode of arrival: ambulatory Limitations: no limitations History of Present Illness ED Provider: Sandy Rangel PA-C HPI narrative: Patient is a 33 year old assigned male at with no reported medical history presenting to the emergency department today with left upper dental pain. Patient states that he has been dealing with dental issues for awhile but hasn't been able to make it in to the dentist. Patient states that over the last 4 days, his left upper molar has been causing him significant pain. Patient denies any dizziness, lightheadedness, abdominal pain, nausea, vomiting, fever, chills, blurry vision, double vision, loss of vision, chest pain, difficulty breathing, shortness of breath, back pain, night sweats, pain with urination, increased urinary frequency, increased urinary urgency, blood in his urine or stool, syncope or a near syncopal episode, recent trauma or falls, bowel incontinence, bladder incontinence, or any other complaints at this time. Onset (ago): day(s) (4) Location: mouth Radiation: non-radiation Severity: mild Severity scale (1-10): 3 Quality: aching and dull Pain Consistency: constant Relieving factors: none Exacerbating factors: none Associated symptoms: denies other symptoms Treatments prior to arrival: none Related Data Previous Rx's ?Medication ?Instructions ?Recorded ibuprofen 600 mg tablet 600 mg PO Q8H PRN pain #30 tabs 07/05/20 amlodipine 5 mg tablet 5 mg PO DAILY #30 tabs 04/29/21 dicyclomine 10 mg capsule 10 mg PO QID PRN abdominal pain 02/06/23 #20 caps acetaminophen 325 mg tablet 650 mg (2 x 325 mg) PO Q6H PRN 11/05/23 (Tylenol) pain #30 tabs chlorhexidine gluconate 0.12 % 15 ml buccal BID #118 mL 04/02/24 mouthwash (Peridex) naproxen 500 mg tablet 500 mg PO BID 7 days #14 tabs 04/02/24 penicillin V potassium 500 mg 500 mg PO BID 10 days #20 tabs 04/02/24 tablet Allergies Allergy/AdvReac Type Severity Reaction Status Date / Time No Known Allergies Allergy Verified 04/02/24 09:53 Review of Systems 2 Constitutional: Constitutional: Reports no additional constitutional complaints, Denies chills, Denies fever(s) and Denies night sweats Eyes: Eyes: Reports no additional eye complaints, Denies blurry vision, Denies change in vision, Denies diplopia, Denies eye discharge, Denies loss of vision and Denies eye pain ENT: Denies dizziness Comments: left upper dental pain Cardiovascular: Cardiovascular: Reports no additional cardiovascular complaints, Denies chest pain, Denies lightheadedness, Denies Loss of Consciousness and Denies dyspnea Respiratory: Respiratory: Reports no additional respiratory complaints and Denies dyspnea Gastrointestinal: Gastrointestinal: Reports no additional gastrointestinal complaints, Denies abdominal pain, Denies melena, Denies hematochezia, Denies change in bowel habits and Denies change in stool character Genitourinary: Genitourinary: Reports no additional male genitourinary complaints, Denies hematuria, Denies oliguria, Denies difficulty urinating, Denies dysuria, Denies urinary frequency, Denies urinary hesitancy, Denies urinary incontinence and Denies urinary urgency Musculoskeletal: Musculoskeletal: Reports no additional musculoskeletal complaints, Denies numbness and Denies tingling Neurologic: Denies dizziness, Denies loss of vision, Denies numbness and Denies tingling Psychiatric: Psychiatric: Reports no additional psychiatric complaints Endocrine: Endocrine: Reports no additional endocrine complaints Hematologic/Lymphatic: Hematologic/Lymphatic: Reports no additional hematologic/lymphatic complaints Allergic/Immunologic: Allergic/Immunologic: Reports no additional allergic/immunologic complaints [facility] Past Medical History Attestation statement: The following information was validated with the patient. Source: old records reviewed and nursing notes reviewed Medical History Asthma Surgical History History of tonsillectomy and adenoidectomy Social History Social History Alcohol intake: current Alcohol intake frequency: holidays/special occasions only Substance Use Type: Marijuana Advance Directives: No Advance Directives Information Provided: No Do you have a plan to hurt others: No Plan Physical Exam ED Vital Signs: Vital Signs - 24 hr 04/02/24 09:51 04/02/24 11:00 Temperature 98.1 F 98.1 F Pulse Rate 84 84 Respiratory Rate 18 18 Blood Pressure 155/101 H 155/101 H Pulse Oximetry 99 99 Oxygen Delivery Method Room Air Room Air BMI result Body Mass Index 23.4 Const General: cooperative, no acute distress, alert and awake Nutritional Appearance: well nourished Orientation/consciousness: patient oriented x3 Limitations: no limitations HENMT Head: Yes normal to inspection and Yes atraumatic Ears: hearing grossly normal bilaterally and external ears normal General nose exam: Normal external nose present, no nasal discharge noted and no epistaxis Face and sinus: Yes normal facial exam, No abrasion and No laceration Mouth: Normal oral and palatal mucosa present, no drooling and no muffled voice Teeth and gingiva: poor dentition Teeth image: 2 1. portion of tooth missing - mild erythema around the base, no fluctuance Eyes General: appearance normal, both eyes and all related structures Periorbital: periorbital findings normal Eyelids: Yes eyelids normal Conjunctivae: conjunctivae normal Pupils: Equal, round and reactive pupils present EOM: EOMs intact bilaterally Neck Neck: Yes normal visual inspection, Yes full ROM and Yes no lymphadenopathy Chest Chest palpation & inspection: normal inspection of the chest Resp Effort & Inspection: normal respiratory effort and able to speak in complete sentences GI Inspection: Yes normal to inspection Neuro General: patient oriented x3 and moves all extremities Cranial nerves: Yes Equal, round and reactive pupils present Cognition (Neuro): normal cognition Extrem General: Yes normal to inspection, Yes full ROM and Yes capillary refill normal Psych Appearance: grossly normal Mental Status: mental status grossly normal Affect: normal affect Attitude: cooperative Thought process: Normal thought process present Thought content: Normal thought content present Insight: Good insight present (Psych) Medical Decision Making Medical Decision Making MDM Narrative: Patient is a 33 year old assigned male at with no reported medical history presenting to the emergency department today with left upper dental pain. Patient's physical exam was as noted in the physical exam portion of this note. I explained my physical exam findings to the patient. I answered all questions asked by the patient. I stressed the importance of the patient taking his medication as directed (either prescribed or as the over the counter packaging recommends). I stressed the importance of the patient following up with his primary care provider and a dentist. I stressed the importance of the patient returning to the emergency department immediately if his symptoms were to worsen or if he were to develop any dizziness, shortness of breath, difficulty breathing, chest pain, blurry vision, loss of vision, nausea, vomiting, abdominal pain, fever, chills, back pain, or any other complaints. Patient verbalized agreement and understanding with this treatment plan and discharge. Differential Diagnosis Differential Diagnoses: The differential diagnosis associated with the presentation includes Dental caries Dental abscess Dental infection Dental pain Admission/Observation Consideration of admission/observation: Escalation of care including admission/observation considered Patient would have been admitted to the hospital had his clinical presentation warranted hospital admission. Prescription Management I considered prescription management with: Pain Medication (patient prescribed pain medication) and Antibiotic (patient prescribed an antibiotic) Discharge Plan Discharge Clinical Impression: Toothache, Dental abscess Patient Disposition: Home, Self-Care Instructions: Dental Abscess (ED), Toothache (ED) Additional Instructions: Take your antibiotic as prescribed. Follow up with your primary care provider and a dentist. Return to the emergency department immediately if your symptoms worsen or if you develop any dizziness, shortness of breath, difficulty breathing, chest pain, blurry vision, loss of vision, nausea, vomiting, abdominal pain, fever, chills, back pain, or any other complaints. Call or visit any of the clinics below to establish with a dentist: [facility] [address] [place] [address] [facility] [address] [place] [address] [facility] [address] [facility] [address] [address] [place] [address] [facility] [address] [place] [id number] [facility] [address] [place] [address] [place] [address] [place] [id number] Prescriptions: New penicillin V potassium 500 mg tablet 500 mg PO BID 10 Days Qty: 20 0RF naproxen 500 mg tablet 500 mg PO BID 7 Days Qty: 14 0RF chlorhexidine gluconate [Peridex] 0.12 % mouthwash 15 ml buccal BID Qty: 118 0RF Continued ibuprofen 600 mg tablet 600 mg PO Q8H PRN (Reason: pain) Qty: 30 0RF amlodipine 5 mg tablet 5 mg PO DAILY Qty: 30 1RF dicyclomine 10 mg capsule 10 mg PO QID PRN (Reason: abdominal pain) Qty: 20 0RF acetaminophen [Tylenol] 325 mg tablet 650 mg PO Q6H PRN (Reason: pain) Qty: 30 0RF Discontinued cephalexin [Keflex] 500 mg capsule 500 mg PO QID 7 Days Qty: 28 0RF amoxicillin 500 mg capsule 500 mg PO BID Qty: 20 0RF ibuprofen 600 mg tablet 600 mg PO Q8H PRN (Reason: fever or pain) Qty: 30 0RF amoxicillin-pot clavulanate 875-125 mg tablet 1 tab PO Q12H 10 Days Qty: 20 0RF ketorolac 10 mg tablet 10 mg PO QID PRN (Reason: pain) 5 Days Qty: 20 0RF Rx Instructions: Patient received toradol 30mg IM amoxicillin 875 mg tablet 875 mg PO BID 10 Days Qty: 20 0RF ibuprofen 800 mg tablet 800 mg PO Q8H PRN (Reason: pain) Qty: 14 0RF oxycodone 5 mg tablet 5 mg PO Q6H PRN (Reason: pain) Qty: 14 0RF Rx Instructions: Partial Fill upon patient request. amoxicillin-pot clavulanate 875-125 mg tablet 1 tab PO BID 7 Days Qty: 14 0RF amoxicillin-pot clavulanate 875-125 mg tablet 1 tab PO BID Qty: 20 0RF ibuprofen 600 mg tablet 600 mg PO Q8H PRN (Reason: pain) Qty: 30 0RF ondansetron 4 mg tablet,disintegrating 4 mg PO Q8H PRN (Reason: nausea and vomiting) Qty: 7 0RF cephalexin 500 mg capsule 500 mg PO QID 7 Days Qty: 28 0RF prednisone 20 mg tablet 40 mg PO DAILY 5 Days Qty: 10 0RF ibuprofen 600 mg tablet 600 mg PO Q6H PRN (Reason: fever or pain) Qty: 30 0RF amoxicillin-pot clavulanate 875-125 mg tablet 1 tab PO TID 7 Days Qty: 21 0RF oxycodone 5 mg tablet 5 mg PO Q6H PRN (Reason: severe pain (scale score 7-10)) Qty: 8 0RF Rx Instructions: Partial Fill upon patient request. Referrals: [facility] Family Medicine [Provider Group] (Call to establish and follow up with a primary care provider. If you already have a primary care provider, please follow up with them.) [facility] [Provider Group] (Call to establish and follow up with a primary care provider. If you already have a primary care provider, please follow up with them.) [facility] [Provider Group] (Call to establish and follow up with a primary care provider. If you already have a primary care provider, please follow up with them.) Interventions: ED Discharge Assessment Last Done: 04/02/24 11:00 Discharge Date/Time: 04/02/24 11:04 Print Language: Sudanese
[2024-04-02 11:00] VITALS: BP 155/101; PULSE 84; RESP 18; TEMP 36.7; O2SAT 99
== END 2024-04-02 11:04 | disposition home or self-care (01) ==
PROVIDERS: Emergency Provider Emergency Medicine Emergency Medical Services
DX: K08.89 Other specified disorders of teeth and supporting structures (principal); K04.7 Periapical abscess without sinus
CPT/HCPCS: 99282; 99283

== ENCOUNTER 2024-06-14 09:29 | Emergency (ER) | payer MEDICAID, SELFPAY ==
[2024-06-14 09:36] VITALS: BP 173/100; PULSE 87; RESP 18; TEMP 36.4; O2SAT 98; BMI 23.6
--- NOTE | 2024-06-14 10:13 | ED_ITS ---
HPI - Dental/Oral General Chief complaint: Dental/Oral Stated complaint: facial sweling Time Seen by Provider: 06/14/24 09:43 Source: patient Mode of arrival: ambulatory Limitations: no limitations History of Present Illness ED Provider: MAME GAINES PA-C HPI Narrative: 33 year old male with pmhx significant for asthma presents to the ED today for evaluation of acute on chronic dental pain x24 hours. Reports history of broken tooth to left upper molar. Has had multiple ED visits for this in the past. He was told that the tooth needs to be extracted however has not followed up with a dentist. Reports that while at work yesterday he began to feel an aching sensation to his left upper molar. Woke up this morning with worsening pain/ mild swelling. Denies drainage from the area. Denies new facial trauma. Denies fever, chills, dysphagia, odynophagia, N/V, sore throat, ear pain. He has not trialed any OTC pain meds for this at home. MD Complaint: tooth pain Teeth map: 2 1. Onset (ago): hour(s) (24) Duration: constant Severity: moderate Relieving factors: nothing Treatment prior to arrival: none Related Data Previous Rx's ?Medication ?Instructions ?Recorded ibuprofen 600 mg tablet 600 mg PO Q8H PRN pain #30 tabs 07/05/20 amlodipine 5 mg tablet 5 mg PO DAILY #30 tabs 04/29/21 dicyclomine 10 mg capsule 10 mg PO QID PRN abdominal pain 02/06/23 #20 caps acetaminophen 325 mg tablet 650 mg (2 x 325 mg) PO Q6H PRN 11/05/23 (Tylenol) pain #30 tabs chlorhexidine gluconate 0.12 % 15 ml buccal BID #118 mL 04/02/24 mouthwash (Peridex) naproxen 500 mg tablet 500 mg PO BID 7 days #14 tabs 04/02/24 penicillin V potassium 500 mg 500 mg PO BID 10 days #20 tabs 04/02/24 tablet amoxicillin 875 mg-potassium 1 tab PO Q12H 7 days #14 tabs 06/14/24 clavulanate 125 mg tablet tramadol 50 mg tablet 50 mg PO Q8H PRN pain (scale score 06/14/24 4-6) #7 tabs Allergies Allergy/AdvReac Type Severity Reaction Status Date / Time No Known Allergies Allergy Verified 06/14/24 09:38 Review of Systems 2 Review of Systems: Constitutional: No fever, chills, fatigue, night sweats, weight changes ENT/Mouth: No ear pain, hearing loss, nasal congestion, sinus pain, rhinorrhea, sore throat, +dental pain Eyes: No eye pain, swelling, redness, vision changes, discharge Cardio: No chest pain, palpitations, CROWLEY, orthopnea, peripheral edema Pulm: No SOB, cough, sputum, wheezing, dyspnea, hemoptysis GI: No nausea, vomiting, hematemesis, abdominal pain, diarrhea, constipation, hematochezia, melena : No irregular bleeding, dysuria, frequency, urgency, hesitancy, hematuria, flank pain, urinary flow changes, urinary incontinence or retention MSK: No back pain, neck pain, joint pain, myalgias Skin: No lesions, rashes Neuro: No weakness, numbness, paresthesias, LOC, dizziness, headache Psych: No anxiety/panic, depression, SI/HI, AH/VH All other systems reviewed and are negative. [facility] Past Medical History Attestation statement: The following information was validated with the patient. Source: old records reviewed and nursing notes reviewed Medical History Asthma Surgical History History of tonsillectomy and adenoidectomy Social History Social History Alcohol intake: current Alcohol intake frequency: holidays/special occasions only Substance Use Type: Marijuana Advance Directives: No Advance Directives Information Provided: No Do you have a plan to hurt others: No Plan Physical Exam 2 Vital Signs: Vital Signs: Last Vital Signs Temp 97.6 F 06/14/24 09:36 Pulse 87 06/14/24 09:36 Resp 18 06/14/24 09:36 BP 173/100 H 06/14/24 09:36 Pulse Ox 98 06/14/24 09:36 O2 Del Method Room Air 06/14/24 09:36 BMI result Body Mass Index 23.6 Vital signs stable, afebrile. Const: General: cooperative, comfortable and no acute distress O rientation/consciousness: patient oriented x3 Limitations: no limitations HEENT: Other: + No facial edema. Tongue and lips wnl + multiple dental caries and poor dentit ion. left upper molar with localized periapical swelling to the buccal ginginva. No pointing. No active bleeding/ discharge. TTP. No palpable fluctuance. + No edema to buccal mucosa + Posterior oropharynx without erythema/ edema. Uvula midline. Controlling secretions and speaking in complete sentences + No submandublar or submental LAD. No c ervical LAD. no anterior neck swelling. Head: Yes normal to inspection, Yes No palpable skull fracture present, Yes normocephalic and Yes atraumatic Ears: hearing grossly normal bilaterally, external ears normal, TM's normal bilaterally, EAC's normal, mastoids normal and no periauricular adenopathy Eyes: General: appearance normal, both eyes and all related structures C onjunctivae: conjunctivae normal Sclerae: sclerae normal Pupils: Equal, round and reactive pupils present Neck: Neck: Yes normal visual inspection and Yes no lymphadenopathy Resp: Effort & Inspection: normal respiratory effort and no stridor A uscultation: clear to auscultation bilaterally Cardio: Rate: regular rate Rhythm: regular rhythm Skin: General skin exam: no rashes or lesions noted Neuro: General: patient oriented x3 and gait normal Cranial nerves: Yes Equal, round and reactive pupils present Course Course Course Narrative: 1030 -- Patient noted to have dental infection. There is no evidence of abscess to warrant drainage at this time. Will treat patient's pain and patient will be discharged home on augmentin to ensure there is no worsening infection for follow-up with dentist. dose given in ED today. Patient advised to follow up with dentist this week. A referral has been provided. Patient has remained stable throughout ED visit today. I discussed worrisome signs and symptoms and when to return to the ED. All questions answered at this time. Patient is agreeable with disposition and stable for discharge. Medical Decision Making Medical Decision Making [facility] Narrative: 33 year old male with pmhx significant for asthma presents to the ED today for evaluation of acute on chronic dental pain x24 hours. Hypertensive, vitals otherwise wnl. Afebrile. He is nontoxic appearing and in NAD. On oral exam, No facial edema. Tongue and lips wnl. multiple dental caries and poor dentition. left upper molar with localized periapical swelling to the buccal ginginva. No pointing. No active bleeding/ discharge. TTP. No palpable fluctuance. No edema to buccal mucosa. Posterior oropharynx without erythema/edema. Uvula midline. Controlling secretions and speaking in complete sentences. No submandublar or submental LAD. No cervical LAD. no anterior neck swelling. Differential includes dental/ periapical abscess/infection. Unlikely mono, herpes, sialadenitis, sialolithiasis, GROUP PRESIDENT, retropharyngeal abscess, deep neck infection, osteomyelitis, facial cellulitis/ abscess, lymphoma. Plan for pain control and discharge home with antibiotics/ dentist follow up. referral provided. Differential Diagnosis Differential Diagnoses: The differential diagnosis associated with the presentation includes as above. Admission/Observation Not indicated. Tests considered The following testing was considered but not selected: I considered obtaining a CT of the soft tissues neck however these is no evidence of ludwigs angina or concern for deep tissue infection. Not warranted at this time. Prescription Management I considered prescription management with: Pain Medication (tramadol) and Antibiotic (augmentin) Chronic Conditions Patient?s care impacted by: Other (dental caries) Social Determinants Patient?s care significantly limited by Social Determinants of Health including: Other Social Determinant of Health Critical Care Time Critical Care Time Critical Care Time: No Discharge Plan Discharge Clinical Impression: Dental caries, Dental infection Patient Disposition: Home, Self-Care Instructions: Dental Abscess (ED), Tooth Extraction (DC) Additional Instructions: You were evaluated in ED today for dental pain. You have a dental infection. Augmentin is an antibiotic that has been sent to your pharmacy for treatment. Take this as prescribed and do not skip any doses. Take this to completion or the infection may persist or worsen. On Augmentin, softer bowel movements are to be expected. Call your provider if you move your bowels more than 4 times a day, your bowel movements are almost all liquid, or you get a rash.? Take tylenol/ motrin at home as needed for pain. Tramadol is a pain medication that has been sent to your pharmacy for you to take for break-through pain. Use this with caution. YOU NEED TO FOLLOW UP WITH A DENTIST. You have been provided with a referral to [facility]. They are currently taking new clients. Call them to make an appointment. They will not call you. Return with new or worsening symptoms. In the case of an emergency call 911. [facility]: [phone] [address] [facility] [id number] Prescriptions: New amoxicillin-pot clavulanate 875-125 mg tablet 1 tab PO Q12H 7 Days Qty: 14 0RF tramadol 50 mg tablet 50 mg PO Q8H PRN (Reason: pain (scale score 4-6)) Qty: 7 0RF No Action ibuprofen 600 mg tablet 600 mg PO Q8H PRN (Reason: pain) Qty: 30 0RF amlodipine 5 mg tablet 5 mg PO DAILY Qty: 30 1RF penicillin V potassium 500 mg tablet 500 mg PO BID 10 Days Qty: 20 0RF naproxen 500 mg tablet 500 mg PO BID 7 Days Qty: 14 0RF chlorhexidine gluconate [Peridex] 0.12 % mouthwash 15 ml buccal BID Qty: 118 0RF dicyclomine 10 mg capsule 10 mg PO QID PRN (Reason: abdominal pain) Qty: 20 0RF acetaminophen [Tylenol] 325 mg tablet 650 mg PO Q6H PRN (Reason: pain) Qty: 30 0RF Stand Alone Forms: Work/School Release Print Language: Nepalese
[2024-06-14] MEDS: traMADoL HCL 50 MG TABLET 25 MG PO (10:33)
[2024-06-14] MEDS: Amoxicillin/Potassium Clav 875 MG TABLET PO (10:33)
[2024-06-14 10:36] VITALS: BP 151/102; PULSE 73; RESP 18; TEMP 37.3; O2SAT 99
[2024-06-14 10:40] VITALS: BP 151/102; PULSE 73; RESP 18; TEMP 37.3; O2SAT 99
== END 2024-06-14 10:41 | disposition home or self-care (01) ==
PROVIDERS: Emergency Provider Emergency Medicine
DX: K04.7 Periapical abscess without sinus (principal); K02.9 Dental caries, unspecified; K08.89 Other specified disorders of teeth and supporting structures
CPT/HCPCS: 99283; 99284

== ENCOUNTER 2024-08-07 08:11 | Emergency (ER) | payer MEDICAID, SELFPAY ==
[2024-08-07 08:15] VITALS: BP 175/119; PULSE 98; RESP 16; TEMP 36.7; O2SAT 98; BMI 24.3
== END 2024-08-07 13:10 | disposition left against medical advice (07) ==
PROVIDERS: Emergency Provider Emergency Medicine
DX: H57.11 Ocular pain, right eye (principal)
CPT/HCPCS: 99281

== ENCOUNTER 2024-08-07 18:08 | Emergency (ER) | payer MEDICAID, SELFPAY ==
[2024-08-07 19:06] VITALS: BP 169/119; PULSE 87; RESP 16; TEMP 36.7; O2SAT 96; BMI 24.4
--- NOTE | 2024-08-07 19:07 | ED.EYEPROB ---
HPI - Eye Problem General Chief complaint: Eye Problems Stated complaint: rt eye infection? Time Seen by Provider: 08/07/24 19:12 Source: patient and RN notes reviewed Mode of arrival: ambulatory Limitations: no limitations History of Present Illness ED Provider: Jyoti Fernandez PA-C HPI Narrative: This is a 34-year-old male who presents emergency department with complaints of right eye pain x1 week. Patient states that 1 week ago he developed itchy right eye, and went to a pharmacy where he has been using [id number] products without relief. He states that 2 days ago he noticed blood on his right eye and increased itchiness. Denies any vision changes. No severe eye pain. He is not on blood thinners. No head trauma. No other complaints or concerns at this time. MD chief complaint: eye pain and eye redness Duration: constant Location: right eye Eye Symptoms: burning, redness and pain Mechanism: none Treatments Prior to Arrival: OTC eye drops Related Data Patient tetanus UTD: Yes Previous Rx's ?Medication ?Instructions ?Recorded ibuprofen 600 mg tablet 600 mg PO Q8H PRN pain #30 tabs 07/05/20 amlodipine 5 mg tablet 5 mg PO DAILY #30 tabs 04/29/21 dicyclomine 10 mg capsule 10 mg PO QID PRN abdominal pain 02/06/23 #20 caps acetaminophen 325 mg tablet 650 mg (2 x 325 mg) PO Q6H PRN 11/05/23 (Tylenol) pain #30 tabs chlorhexidine gluconate 0.12 % 15 ml buccal BID #118 mL 04/02/24 mouthwash (Peridex) naproxen 500 mg tablet 500 mg PO BID 7 days #14 tabs 04/02/24 penicillin V potassium 500 mg 500 mg PO BID 10 days #20 tabs 04/02/24 tablet amoxicillin 875 mg-potassium 1 tab PO Q12H 7 days #14 tabs 06/14/24 clavulanate 125 mg tablet tramadol 50 mg tablet 50 mg PO Q8H PRN pain (scale score 06/14/24 4-6) #7 tabs erythromycin 5 mg/gram (0.5 %) eye 0.5 inch ophthalmic (eye) QID #3.5 08/07/24 ointment grams Allergies Allergy/AdvReac Type Severity Reaction Status Date / Time No Known Allergies Allergy Verified 08/07/24 19:09 Review of Systems Review of Systems: Yes all other systems are reviewed and are negative [facility] Past Medical History Medical History Asthma Surgical History History of tonsillectomy and adenoidectomy Social History Social History Alcohol intake: current Alcohol intake frequency: holidays/special occasions only Substance Use Type: Marijuana Advance Directives: No Advance Directives Information Provided: No Do you have a plan to hurt others: No Plan Physical Exam Vital Signs: Vital Signs: Last Vital Signs Temp 97.9 F 08/07/24 20:38 Pulse 89 08/07/24 20:38 Resp 16 08/07/24 20:38 BP 208/109 H 08/07/24 20:38 Pulse Ox 99 08/07/24 20:38 O2 Del Method Room Air 08/07/24 20:38 BMI result Body Mass Index 24.4 Const: Other: General: Awake, alert, and oriented X3. No acute distress. HEENT: right eye with subconjunctival hemorrhage, negative Daysi sign. IOP 15mmHg BL. No fluorescein uptake seen throughout I, no corneal abrasions or lacerations. CVS: Normal heart rate and rhythm. Pulses normal. Respiratory: No respiratory distress Skin: Warm, dry, no rashes noted to exposed skin. Normal skin color. Normal skin turgor. Extremities: Normal to inspection Neuro: Oriented X 3. No motor deficit. No sensory deficit. Course Course Course Narrative: This is an RME: Additional HPI, ROS, PE not included below will be deferred to primary provider. RME assessment and note performed by: Jyoti Fernandez PA-C This is a [id number]-male who presents to the ER with a complaint of right eye irritation. He reports that he went to [facility] and was advised to use eye drops, which he was doing. No contact use. Awoke with subconjunctival injection. Plan: visual acuity. Medications Administered Discontinued Medications Generic Name Dose Route Start Last Admin Trade Name Freq PRN Reason Stop Dose Admin Fluorescein Sodium 1 strip 08/07/24 19:10 08/07/24 19:19 Fluorescein Sodium Strip EYE-RIGHT 08/07/24 19:11 1 strip ONCE ONE Administration Tetracaine HCl 1 drop 08/07/24 19:10 08/07/24 19:19 Tetracaine Hcl/Pf 0.5% Oph Rachel 4 Ml Drops EYE-RIGHT 08/07/24 19:11 1 drop ONCE ONE Administration Medical Decision Making Medical Decision Making MDM Narrative: This is a 34-year-old male who presents emergency department complaints of right eye irritation x1 week. On arrival, blood pressure mildly elevated 169/119, he has no chest pain or shortness for breath. Right eye with subconjunctival injection. Visual acuity intact. Fluorescein stain was performed, no fluorescein uptake, no evidence of corneal abrasion or laceration. No Daysi sign. Differential diagnoses include conjunctivitis, corneal abrasion, laceration, iritis. Will treat as a conjunctivitis, given strict return precautions. He understands agrees with plan. Patient stable for discharge. I stressed the urgency of him following up with a primary care physician regarding his blood pressure, he states that he occasionally has elevated blood pressure readings in the past, he does not have a PCP at this time. He has no chest pain, shortness for breath, dizziness, headaches, blurred vision. I advised him to call tomorrow to make an appointment. Patient stable for discharge Differential Diagnosis Differential Diagnoses: The differential diagnosis associated with the presentation includes See above Attestation Attending Attestation: I was personally present and available for consultation in the ED. I have reviewed everything on the chart that is available and agree with the documentation provided by the GREY including discussion about the assessment, treatment plan and discussion. Based on medical record the care appears appropriate. Celso Dobbs MD [facility] Emergency Medicine Discharge Plan Discharge Clinical Impression: Subconjunctival hemorrhage, Bacterial conjunctivitis, Elevated blood pressure reading Patient Disposition: Home, Self-Care Instructions: Subconjunctival Hemorrhage (ED), Conjunctivitis (ED) Additional Instructions: You were seen in the emergency department due to right eye pain. You need to be put on antibiotic eye ointment. Apply 4 times a day for 7 days. Use antibiotic ointment as prescribed, finish the entire course even if your symptoms improve. If any new or worsening symptoms occur including but not limited to severe eye pain, changes in vision, please seek emergent care. You may follow-up with the landing support specialist, Dr. Mas. You also need to follow-up with a primary care physician as your blood pressure read was high today. Prescriptions: New erythromycin 5 mg/gram (0.5 %) ointment 0.5 inch ophthalmic (eye) QID Qty: 3.5 0RF No Action ibuprofen 600 mg tablet 600 mg PO Q8H PRN (Reason: pain) Qty: 30 0RF amlodipine 5 mg tablet 5 mg PO DAILY Qty: 30 1RF penicillin V potassium 500 mg tablet 500 mg PO BID 10 Days Qty: 20 0RF naproxen 500 mg tablet 500 mg PO BID 7 Days Qty: 14 0RF chlorhexidine gluconate [Peridex] 0.12 % mouthwash 15 ml buccal BID Qty: 118 0RF amoxicillin-pot clavulanate 875-125 mg tablet 1 tab PO Q12H 7 Days Qty: 14 0RF tramadol 50 mg tablet 50 mg PO Q8H PRN (Reason: pain (scale score 4-6)) Qty: 7 0RF dicyclomine 10 mg capsule 10 mg PO QID PRN (Reason: abdominal pain) Qty: 20 0RF acetaminophen [Tylenol] 325 mg tablet 650 mg PO Q6H PRN (Reason: pain) Qty: 30 0RF Referrals: [facility] [Primary Care Provider] - Stand Alone Forms: Work/School Release Interventions: ED Discharge Assessment Last Done: 08/07/24 20:38 Discharge Date/Time: 08/07/24 20:39 Print Language: Cambodian
[2024-08-07] MEDS: Tetracaine HCl/PF 0.5% Oph Sol 4 ML DROPS 1 DROP EYE-RIGHT (19:19)
[2024-08-07] MEDS: Fluorescein Sodium STRIP 1 STRIP EYE-RIGHT (19:19)
[2024-08-07 20:02] VITALS: BP 208/109; PULSE 89; RESP 16; TEMP 36.6; O2SAT 99
[2024-08-07 20:38] VITALS: BP 208/109; PULSE 89; RESP 16; TEMP 36.6; O2SAT 99
== END 2024-08-07 20:39 | disposition home or self-care (01) ==
PROVIDERS: Emergency Provider Emergency Medicine
DX: H11.31 Conjunctival hemorrhage, right eye (principal); H57.11 Ocular pain, right eye; H10.31 Unspecified acute conjunctivitis, right eye; R03.0 Elevated blood-pressure reading, without diagnosis of hypertension
CPT/HCPCS: 99283

== ENCOUNTER 2024-08-14 18:36 | Emergency (ER) | payer MEDICAID, SELFPAY ==
[2024-08-14 18:51] VITALS: BP 155/105; PULSE 111; RESP 18; TEMP 37.1; O2SAT 97; BMI 25.3
--- NOTE | 2024-08-14 18:55 | ED_ITS ---
HPI - General Adult General Chief complaint: Eye Problems Stated complaint: rt eye re-eval/unable to see using cream Time Seen by Provider: 08/14/24 21:34 History of Present Illness ED Provider: Leonel BAUTISTA narrative: The patient is a 34-year-old male who was seen here 1 week ago for redness in his right eye. The patient tells me that he had a stye in his right upper eyelid that ruptured. When he was here he was thought to possibly have a subconjunctival hemorrhage or possibly some degree of a conjunctivitis. He was prescribed erythromycin ointment. He has been using the erythromycin ointment but he finds it uncomfortable to apply. Today he comes saying that he is concerned that the ointment is uncomfortable to apply and wondering whether he needs to continue it. On the whole he feels that his eye is looking and feeling better. He has no visual complaints. Related Data Previous Rx's ?Medication ?Instructions ?Recorded ibuprofen 600 mg tablet 600 mg PO Q8H PRN pain #30 tabs 07/05/20 amlodipine 5 mg tablet 5 mg PO DAILY #30 tabs 04/29/21 dicyclomine 10 mg capsule 10 mg PO QID PRN abdominal pain 02/06/23 #20 caps acetaminophen 325 mg tablet 650 mg (2 x 325 mg) PO Q6H PRN 11/05/23 (Tylenol) pain #30 tabs chlorhexidine gluconate 0.12 % 15 ml buccal BID #118 mL 04/02/24 mouthwash (Peridex) naproxen 500 mg tablet 500 mg PO BID 7 days #14 tabs 04/02/24 penicillin V potassium 500 mg 500 mg PO BID 10 days #20 tabs 04/02/24 tablet amoxicillin 875 mg-potassium 1 tab PO Q12H 7 days #14 tabs 06/14/24 clavulanate 125 mg tablet tramadol 50 mg tablet 50 mg PO Q8H PRN pain (scale score 06/14/24 4-6) #7 tabs erythromycin 5 mg/gram (0.5 %) eye 0.5 inch ophthalmic (eye) QID #3.5 08/07/24 ointment grams Allergies Allergy/AdvReac Type Severity Reaction Status Date / Time No Known Allergies Allergy Verified 08/14/24 18:54 Review of Systems Review of Systems: Yes all other systems are reviewed and are negative [facility] Past Medical History Medical History Asthma Surgical History History of tonsillectomy and adenoidectomy Social History Social History Alcohol intake: current Alcohol intake frequency: holidays/special occasions only Substance Use Type: Marijuana Advance Directives: No Advance Directives Information Provided: No Do you have a plan to hurt others: No Plan Physical Exam ED Vital Signs: Vital Signs - 24 hr 08/14/24 18:51 08/14/24 21:14 Temperature 98.8 F 98.5 F Pulse Rate 111 H 100 Respiratory Rate 18 16 Blood Pressure 155/105 H 170/106 H Pulse Oximetry 97 98 Oxygen Delivery Method Room Air Room Air BMI result Body Mass Index 25.3 Const Other: The patient is awake, alert, pleasant, cooperative. He does not appear in any distress. HENMT Other: Face is symmetrical. Mucous membranes moist. Eyes Other: There is subconjunctival injection in the medial aspect of the conjunctiva of the right eye. This has the appearance of a subconjunctival hemorrhage. Extraocular movements are intact. Cornea looks clear. Resp Effort & Inspection: normal respiratory effort Auscultation: clear to auscultation bilaterally Cardio Rate: regular rate Rhythm: regular rhythm Heart sounds: S1 normal heart sound present and S2 normal heart sound present Skin Other: The skin of the eyelids and the face is normal. No soft tissue swelling or redness Neuro Other: The patient is awake and alert with a normal mental status. Pupil movements are normal. Extraocular movements are normal. Face is symmetrical. Speech is clear. Gait is steady. Course Course Course Narrative: RME, this is a rapid medical exam performed by Ralf Quintanilla please refer to primary provider for complete H&P- 34-year-old male presents for evaluation right eye pain. He was seen here last week for conjunctivitis in his currently taking erythromycin q.i.d.. He reports the erythromycin ointment burn she was I went applied. He appears to have a subconjunctival hemorrhage on examination. Currently denies any blurry vision. He is able to identify correctly how many fingers I am holding up. He will need a focused eye exam. Medical Decision Making Medical Decision Making [facility] Narrative: The patient is a 34-year-old male who has been using erythromycin ointment to the right eye that was prescribed for a question of a bacterial conjunctivitis 1 week ago. On my exam I feel the current redness is more consistent with a subconjunctival hemorrhage then an infection. The patient says that the erythromycin ointment he has been using is uncomfortable to apply to the eye. He also feels that overall he feels the eye is getting better and is not really bothering him very much. At this point I feel the patient can discontinue the erythromycin ointment. If this is simply a subconjunctival hemorrhage should get better. I am not sure he will require ophthalmology follow up but if he has ongoing concerns he may contact the ophthalmology office. Discharge Plan Discharge Clinical Impression: Subconjunctival hemorrhage Patient Disposition: Home, Self-Care Instructions: Subconjunctival Hemorrhage (ED) Additional Instructions: At this point I think most of the redness in your left eye is from a burst blood vessel and not an infection. I think stopping the antibiotic ointment is reasonable. If you think that your eye is only feeling better than I do not think there is all that much need for you to see an pulpwood contractor. However if you remain concerned about the state of your eye please give the opht halmology office a call for an appointment. Also make a follow up appointment with your regular doctor to discuss your blood pressure. Return to the emergency room if significantly worse. Prescriptions: No Action ibuprofen 600 mg tablet 600 mg PO Q8H PRN (Reason: pain) Qty: 30 0RF amlodipine 5 mg tablet 5 mg PO DAILY Qty: 30 1RF penicillin V potassium 500 mg tablet 500 mg PO BID 10 Days Qty: 20 0RF naproxen 500 mg tablet 500 mg PO BID 7 Days Qty: 14 0RF chlorhexidine gluconate [Peridex] 0.12 % mouthwash 15 ml buccal BID Qty: 118 0RF amoxicillin-pot clavulanate 875-125 mg tablet 1 tab PO Q12H 7 Days Qty: 14 0RF tramadol 50 mg tablet 50 mg PO Q8H PRN (Reason: pain (scale score 4-6)) Qty: 7 0RF dicyclomine 10 mg capsule 10 mg PO QID PRN (Reason: abdominal pain) Qty: 20 0RF acetaminophen [Tylenol] 325 mg tablet 650 mg PO Q6H PRN (Reason: pain) Qty: 30 0RF erythromycin 5 mg/gram (0.5 %) ointment 0.5 inch ophthalmic (eye) QID Qty: 3.5 0RF Referrals: [facility] [Provider Group] (Hypertension, subconjunctival hemorrhage) Darshan Mas [Physician] - (Subconjunctival hemorrhage, ? stye) Stand Alone Forms: Work/School Release Print Language: Luxembourger
[2024-08-14 21:14] VITALS: BP 170/106; PULSE 100; RESP 16; TEMP 36.9; O2SAT 98
[2024-08-14 22:27] VITALS: BP 170/106; PULSE 100; RESP 16; TEMP 36.9; O2SAT 98
== END 2024-08-14 22:00 | disposition home or self-care (01) ==
PROVIDERS: Emergency Provider Emergency Medicine
DX: H11.31 Conjunctival hemorrhage, right eye (principal); H57.89 Other specified disorders of eye and adnexa
CPT/HCPCS: 99282; 99284

== ENCOUNTER 2024-08-20 15:19 | Emergency (ER) | payer MEDICAID, SELFPAY ==
[2024-08-20 15:34] VITALS: BP 165/119; PULSE 100; RESP 19; TEMP 36.6; O2SAT 99; BMI 24.6
--- NOTE | 2024-08-20 15:40 | ED_ITS ---
HPI - General Adult General Chief complaint: Dental/Oral Stated complaint: Swollen Tongue from Bite Time Seen by Provider: 08/20/24 20:19 Source: patient Limitations: no limitations History of Present Illness ED Provider: Diamond Martinez PA-C HPI narrative: 34-year-old male with a history of hypertension, alcohol use disorder, presents with tongue wound x 3 days. Patient states he was having an alcohol withdrawal seizure, he subsequently bit his tongue in both sides of each inner cheek during the seizure. Patient is having pain at each puncture site, he is noting pus draining from the tongue itself. Denies fever. Related Data Previous Rx's ?Medication ?Instructions ?Recorded ibuprofen 600 mg tablet 600 mg PO Q8H PRN pain #30 tabs 07/05/20 amlodipine 5 mg tablet 5 mg PO DAILY #30 tabs 04/29/21 dicyclomine 10 mg capsule 10 mg PO QID PRN abdominal pain 02/06/23 #20 caps acetaminophen 325 mg tablet 650 mg (2 x 325 mg) PO Q6H PRN 11/05/23 (Tylenol) pain #30 tabs chlorhexidine gluconate 0.12 % 15 ml buccal BID #118 mL 04/02/24 mouthwash (Peridex) naproxen 500 mg tablet 500 mg PO BID 7 days #14 tabs 04/02/24 penicillin V potassium 500 mg 500 mg PO BID 10 days #20 tabs 04/02/24 tablet amoxicillin 875 mg-potassium 1 tab PO Q12H 7 days #14 tabs 06/14/24 clavulanate 125 mg tablet tramadol 50 mg tablet 50 mg PO Q8H PRN pain (scale score 06/14/24 4-6) #7 tabs erythromycin 5 mg/gram (0.5 %) eye 0.5 inch ophthalmic (eye) QID #3.5 08/07/24 ointment grams amoxicillin 875 mg-potassium 1 tab PO BID #14 tabs 08/20/24 clavulanate 125 mg tablet chlorhexidine gluconate 0.12 % 15 ml buccal BID #120 mL 08/20/24 mouthwash (Peridex) oxycodone 5 mg tablet 5 mg PO Q6H PRN pain #8 tabs 08/20/24 Allergies Allergy/AdvReac Type Severity Reaction Status Date / Time No Known Allergies Allergy Verified 08/20/24 15:40 Review of Systems 2 Review of Systems: Yes all other systems are reviewed and are negative Constitutional: Constitutional: Denies fatigue and Denies fever(s) ENT: Reports mouth pain and Denies sore throat Cardiovascular: Cardiovascular: Denies chest pain and Denies dyspnea Respiratory: Respiratory: Denies dyspnea Gastrointestinal: Gastrointestinal: Denies abdominal pain, Denies nausea and Denies vomiting Endocrine: Endocrine: Denies fatigue [facility] Past Medical History Attestation statement: The following information was validated with the patient. Medical History Asthma Surgical History History of tonsillectomy and adenoidectomy Social History Social History Alcohol intake: current Alcohol intake frequency: holidays/special occasions only Substance Use Type: Marijuana Advance Directives: No Advance Directives Information Provided: No Do you have a plan to hurt others: No Plan Physical Exam ED Vital Signs: Vital Signs - 24 hr 08/20/24 15:34 08/20/24 21:29 Temperature 98 F 98 F Pulse Rate 100 100 Respiratory Rate 19 19 Blood Pressure 165/119 H 165/119 H Pulse Oximetry 99 99 Oxygen Delivery Method Room Air Room Air BMI result Body Mass Index 24.6 Const Other: Alert Orientation/consciousness: patient oriented x3 HENMT Other: Oropharynx is clear, 2 puncture wounds noted bilateral inner cheek, and a 3rd along the lateral aspect of the right side of the tongue, I am not appreciating pus, no sublingual fluctuance, no trismus no drooling Neck Other: No swelling inferior to the jawline Resp Effort & Inspection: normal respiratory effort Cardio Other: Normal peripheral perfusion Skin Other: Warm dry no rash Neuro General: patient oriented x3, no focal motor deficits and CN's II-XI intact bilaterally Psych Other: Cooperative Course Course Course Narrative: This is a Rapid Medical Examination (RME) performed by Sweta Carroll PA-C in triage. Full HPI, ROS, assessment and treatment plan per primary provider in the Main ED. 34 yo male here for eval of ?tongue infection s/p etoh withdrawal seizure a few days ago. he was evaluated in [place]. discharged last night. reports pain/ swelling to tongue making it difficult to eat. 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 We will give him a dose now. He is asymptomatic he has no chest pain no headache no visual disturbance. Time: 21:44 Medications Administered Discontinued Medications Generic Name Dose Route Start Last Admin Trade Name Wilfred PRN Reason Stop Dose Admin Al Hydroxide/Mg Hydroxide 15 ml 08/20/24 21:07 08/20/24 21:28 Magnesium Hydrox/Alum Hydrox 30 Ml Oral.Susp PO 08/20/24 21:08 15 ml ONCE ONE Administration Amoxicillin/Clavulanate Potassium 875 mg 08/20/24 21:07 08/20/24 21:25 Amoxicillin/Potassium Clav 875 Mg Tablet PO 08/20/24 21:08 875 mg ONCE ONE Administration Lidocaine HCl 15 ml 08/20/24 21:07 08/20/24 21:26 Lidocaine Hcl Viscous 2 % 15 Ml Solution MUCOUS MEM 08/20/24 21:08 15 ml ONCE ONE Administration Oxycodone HCl 10 mg 08/20/24 21:07 08/20/24 21:25 Oxycodone Hcl Immed Release 5 Mg Tablet PO 08/20/24 21:08 10 mg ONCE ONE Administration Medical Decision Making Medical Decision Making [facility] Narrative: 34-year-old male with a history of hypertension, alcohol use disorder, presents with tongue wound x 3 days. Patient states he was having an alcohol withdrawal seizure, he subsequently bit his tongue in both sides of each inner cheek during the seizure. Patient is having pain at each puncture site, he is noting pus draining from the tongue itself. Denies fever. Problem: Alcohol use disorder with seizure activity History: Per patient I have considered the following differential diagnoses: Puncture wound infection, abscess, Garry angina Plan: We will treat the patient for wound infection, covering with Augmentin and Peridex rinse. We will send with a short script for pain medication. Screening labs were obtained from triage. The patient was treated and released after his alcohol withdrawal activity. I have independently reviewed the following tests: Labs: No leukocytosis, not anemic, no electrolyte abnormality Lab Data 08/20/24 16:36 08/20/24 16:36 Labs: Lab Results 08/20/24 Range/Units 16:36 WBC 9.5 (4.8-10.8) X10*3/uL RBC 4.70 (4.60-5.80) X10*6/uL Hgb 14.8 (14.0-18.0) g/dl Hct 43.0 (42.0-52.0) % MCV 91.5 (80.0-98.0) fL MCH 31.5 (27.0-33.0) pg MCHC 34.4 (31.0-36.0) g/dl RDW 13.0 (11.0-16.0) % Plt Count 186 D (160-400) X10*3/uL MPV 9.3 L (9.4-12.4) fL Immature Gran % (Auto) 0.3 (0.0-0.4) % Neut % (Auto) 69.6 (45-73) % Lymph % (Auto) 20.2 (20-40) % [place] % (Auto) 8.0 (2-11) % Eos % (Auto) 1.4 (0-4) % Baso % (Auto) 0.5 (0-2) % Lymph # (Auto) 1.9 (1.2-4.9) X10*3/uL [place] # (Auto) 0.8 (0.1-1.2) X10*3/uL Eos # (Auto) 0.1 (0.0-0.4) X10*3/uL Baso # (Auto) 0.1 (0.0-0.2) X10*3/uL Abs Immat Gran (auto) 0.03 (0.00-0.03) X10*3/uL Absolute Neuts (auto) 6.6 (2.0-8.3) x10*3/uL Absolute Nucleated RBC 0.000 (0.0-0.012) X10*3/uL Nucleated RBC % (auto) 0.0 (0.0-0.2) /100WBC Sodium 132 L (135-145) mmol/L Potassium 4.1 (3.3-5.1) mmol/L Chloride 98 (96-108) mmol/L Carbon Dioxide 23 (22-29) mmol/L Anion Gap 15 (12-20) BUN 11 (9-16) mg/dL Creatinine 0.71 (0.5-1.4) mg/dL Estim Creat Clear Calc 167.2 Estimated GFR > 60 Random Glucose 87 (60-115) mg/dL Calcium 9.7 D (8.4-10.2) mg/dL Total Bilirubin 1.6 H (0.0-1.0) mg/dL AST 103 H (5-37) U/L ALT 116 H (0-40) U/L Alkaline Phosphatase 116 (39-117) U/L Total Protein 8.0 (6.5-8.0) g/dL Albumin 4.4 (3.5-5.0) g/dL Discharge Plan Discharge Clinical Impression: Puncture wound of tongue Patient Disposition: Home, Self-Care Instructions: Puncture Wound (ED) Additional Instructions: See home care instructions. Take the Augmentin as directed. Use the Peridex rinse as directed. Use the oxycodone as needed for pain, to note this medication will cause constipation, you should also purchase [id number] Colace, this is a stool softener, to prevent constipation. You can alternate with the use of qmbv-ktw-[id number] ibuprofen 600 mg taken every 6 hours with food. In addition, you can purchase an sqxi-[id number] oral lidocaine solution to apply at each of the puncture wound sites. Follow up with your primary care provider as needed. Prescriptions: New amoxicillin-pot clavulanate 875-125 mg tablet 1 tab PO BID Qty: 14 0RF chlorhexidine gluconate [Peridex] 0.12 % mouthwash 15 ml buccal BID Qty: 120 0RF oxycodone 5 mg tablet 5 mg PO Q6H PRN (Reason: pain) Qty: 8 0RF Rx Instructions: Partial Fill upon patient request. No Action ibuprofen 600 mg tablet 600 mg PO Q8H PRN (Reason: pain) Qty: 30 0RF amlodipine 5 mg tablet 5 mg PO DAILY Qty: 30 1RF penicillin V potassium 500 mg tablet 500 mg PO BID 10 Days Qty: 20 0RF naproxen 500 mg tablet 500 mg PO BID 7 Days Qty: 14 0RF chlorhexidine gluconate [Peridex] 0.12 % mouthwash 15 ml buccal BID Qty: 118 0RF amoxicillin-pot clavulanate 875-125 mg tablet 1 tab PO Q12H 7 Days Qty: 14 0RF tramadol 50 mg tablet 50 mg PO Q8H PRN (Reason: pain (scale score 4-6)) Qty: 7 0RF dicyclomine 10 mg capsule 10 mg PO QID PRN (Reason: abdominal pain) Qty: 20 0RF acetaminophen [Tylenol] 325 mg tablet 650 mg PO Q6H PRN (Reason: pain) Qty: 30 0RF erythromycin 5 mg/gram (0.5 %) ointment 0.5 inch ophthalmic (eye) QID Qty: 3.5 0RF Stand Alone Forms: Work/School Release Interventions: ED Discharge Assessment Last Done: 08/20/24 21:29 Print Language: Telugu
[2024-08-20 16:40] LABS: MANUAL DIFF FLAG NO
[2024-08-20 16:48] LABS: Basophils Absolute Auto 0.1 X10*3/uL (0.0-0.2); Basophils Percent Auto 0.5 % (0-2); Eosinophils Absolute Auto 0.1 X10*3/uL (0.0-0.4); Eosinophils Percent Auto 1.4 % (0-4); Hemoglobin 14.8 g/dl (14.0-18.0); Imm Gran Abs Auto 0.03 X10*3/uL (0.00-0.03); Imm Gran Pct Auto 0.3 % (0.0-0.4); Lymphocytes Absolute Auto 1.9 X10*3/uL (1.2-4.9); Lymphocytes Percent Auto 20.2 % (20-40); Mean Corpuscular HGB Conc 34.4 g/dl (31.0-36.0); Mean Corpuscular Hemoglobin 31.5 pg (27.0-33.0); Mean Corpuscular Volume 91.5 fL (80.0-98.0); Mean Platelet Volume 9.3 fL (9.4-12.4); Monocytes Absolute Auto 0.8 X10*3/uL (0.1-1.2); Neutrophils Absolute Auto 6.6 x10*3/uL (2.0-8.3); Neutrophils Percent Auto 69.6 % (45-73); Platelet Count 186 X10*3/uL (160-400); White Blood Count 9.5 X10*3/uL (4.8-10.8)
[2024-08-20 16:58] LABS: Alanine Aminotransferase 116 U/L (0-40); Albumin Level 4.4 g/dL (3.5-5.0); Alkaline Phosphatase 116 U/L (39-117); Anion Gap 15 (12-20); Aspartate Amino Transferase 103 U/L (5-37); Bilirubin Total 1.6 mg/dL (0.0-1.0); Blood Urea Nitrogen 11 mg/dL (9-16); Calcium 9.7 mg/dL (8.4-10.2); Carbon Dioxide 23 mmol/L (22-29); Chloride 98 mmol/L (96-108); Creatinine Clr Calc Pharmacy 167.2; Estimated Glomerular Filt Rate > 60; Glucose Random 87 mg/dL (60-115); Potassium 4.1 mmol/L (3.3-5.1); Sodium 132 mmol/L (135-145)
[2024-08-20] MEDS: Amoxicillin/Potassium Clav 875 MG TABLET PO (21:25)
[2024-08-20] MEDS: oxyCODONE HCl Immed Release 5 MG TABLET 10 MG PO (21:25)
[2024-08-20] MEDS: Lidocaine HCl Viscous 2 % 15 ML SOLUTION MUCOUS MEM (21:26)
[2024-08-20] MEDS: Magnesium Hydrox/Alum Hydrox 30 ML ORAL.SUSP 15 ML PO (21:28)
[2024-08-20 21:29] VITALS: BP 165/119; PULSE 100; RESP 19; TEMP 36.6; O2SAT 99
[2024-08-20 21:48] VITALS: BP 165/119
[2024-08-20] MEDS: Metoprolol Tartrate 25 MG TABLET PO (21:48)
== END 2024-08-20 21:49 | disposition home or self-care (01) ==
PROVIDERS: Physician Assistant Medical; Emergency Provider Emergency Medicine Emergency Medical Services
DX: S01.532A Puncture wound without foreign body of oral cavity, initial encounter (principal); X58.XXXA Exposure to other specified factors, initial encounter; Y93.9 Activity, unspecified; Y92.9 Unspecified place or not applicable; Y99.8 Other external cause status; Z79.899 Other long term (current) drug therapy
CPT/HCPCS: 36415; 80053; 85025; 99283

== ENCOUNTER 2024-09-29 11:06 | Emergency (ER) | payer MEDICAID, SELFPAY ==
--- NOTE | ~2024-09-29 | XR_ITS ---
EXAMINATION: XR LUMBOSACRAL SPINE CLINICAL INFORMATION: fall backwards onto low back COMPARISON: 07/05/2019. TECHNIQUE: Four views of the lumbosacral spine. FINDINGS: Transitional lumbosacral anatomy, with hypoplastic ribs at T12. Partially sacralized L5. Minimal levoconvex scoliosis, apex L4. Normal lumbar lordosis. No fracture, compression deformity, or suspicious bone lesion. There is a 6 mm anterolisthesis of L4 on L5. Alignment is otherwise anatomic. Mild disc degeneration L4-5 and L5-S1. Disc spaces otherwise normal. There are probable pars defects at L4. No soft tissue abnormalities. XR/XR lumbar spine 2-3V IMPRESSION: 1. Transitional lumbosacral anatomy. 2. No acute fracture or compression deformity. 3. 6 mm spondylolisthesis L4 on L5. Electronically signed by: Chaz Jameson MD 09/29/2024 11:38 AM EDT
--- NOTE | ~2024-09-29 | XR_ITS ---
EXAMINATION: XR ELBOW 3 VIEWS RIGHT HISTORY: fall onto elbow COMPARISON: There are no prior studies available for comparison. FINDINGS: Three views of the right elbow are submitted. Osseous mineralization is normal. There is no fracture or dislocation. The joint spaces are preserved. The soft tissues are unremarkable. XR/XR elbow RT min 3V IMPRESSION: Unremarkable examination of the right elbow. Electronically signed by: Darren Burden MD 09/29/2024 11:39 AM EDT
[2024-09-29 11:08] VITALS: BP 140/92; PULSE 100; RESP 19; TEMP 36.6; O2SAT 97; BMI 23.7
--- NOTE | 2024-09-29 11:09 | ED.FALL ---
HPI - Fall General Chief Complaint: Back Pain/Injury Stated Complaint: fell down stairs back inj Time Seen by Provider: 09/29/24 11:45 Source: patient Mode of arrival: ambulatory Limitations: no limitations History of Present Illness ED Provider: YI CARROLL PA-C HPI Narrative: 34 year old male with no significant past medical history presents to the ED today for evaluation of right elbow pain and low back pain s/p mechanical fall this morning. Reports slipping down 2-3 stairs this morning causing him to fall backwards, landing on his low back and striking his right elbow. Denies head strike or LOC. Not on AC. Admits to calling out of work today d/t pain. Denies bowel or bladder incontinence or retention, saddle anesthesia, numbness/tingling/weakness of the extremities. Denies headache, dizziness, vision changes, chest pain. Denies any other complaints. Related Data Previous Rx's ?Medication ?Instructions ?Recorded ibuprofen 600 mg tablet 600 mg PO Q8H PRN pain #30 tabs 07/05/20 amlodipine 5 mg tablet 5 mg PO DAILY #30 tabs 04/29/21 dicyclomine 10 mg capsule 10 mg PO QID PRN abdominal pain 02/06/23 #20 caps acetaminophen 325 mg tablet 650 mg (2 x 325 mg) PO Q6H PRN 11/05/23 (Tylenol) pain #30 tabs chlorhexidine gluconate 0.12 % 15 ml buccal BID #118 mL 04/02/24 mouthwash (Peridex) naproxen 500 mg tablet 500 mg PO BID 7 days #14 tabs 04/02/24 penicillin V potassium 500 mg 500 mg PO BID 10 days #20 tabs 04/02/24 tablet amoxicillin 875 mg-potassium 1 tab PO Q12H 7 days #14 tabs 06/14/24 clavulanate 125 mg tablet tramadol 50 mg tablet 50 mg PO Q8H PRN pain (scale score 06/14/24 4-6) #7 tabs erythromycin 5 mg/gram (0.5 %) eye 0.5 inch ophthalmic (eye) QID #3.5 08/07/24 ointment grams amoxicillin 875 mg-potassium 1 tab PO BID #14 tabs 08/20/24 clavulanate 125 mg tablet chlorhexidine gluconate 0.12 % 15 ml buccal BID #120 mL 08/20/24 mouthwash (Peridex) oxycodone 5 mg tablet 5 mg PO Q6H PRN pain #8 tabs 08/20/24 lidocaine 5 % topical patch 1 patch topical DAILY #15 ea 09/29/24 (Lidoderm) naproxen 500 mg tablet 500 mg PO Q12H PRN pain (scale 09/29/24 score 1-3) #20 tabs Allergies Allergy/AdvReac Type Severity Reaction Status Date / Time No Known Allergies Allergy Verified 09/29/24 11:10 Review of Systems Review of Systems: Constitutional: No fever, chills, fatigue, night sweats, weight changes ENT/Mouth: No ear pain, hearing loss, nasal congestion, sinus pain, rhinorrhea, sore throat Eyes: No eye pain, swelling, redness, vision changes, discharge Cardio: No chest pain, palpitations, [place]OW[place], orthopnea, peripheral edema Pulm: No SOB, cough, sputum, wheezing, dyspnea, hemoptysis GI: No nausea, vomiting, hematemesis, abdominal pain, diarrhea, constipation, hematochezia, melena : No irregular bleeding, dysuria, frequency, urgency, hesitancy, hematuria, flank pain, urinary flow changes, urinary incontinence or retention MSK: No neck pain, joint pain, myalgias, +back pain, +right elbow pain Skin: No lesions, rashes Neuro: No weakness, numbness, paresthesias, LOC, dizziness, headache Psych: No anxiety/panic, depression, SI/HI, AH/VH All other systems reviewed and are negative. [facility] Past Medical History Attestation statement: The following information was validated with the patient. Source: old records reviewed and nursing notes reviewed Medical History Asthma Surgical History History of tonsillectomy and adenoidectomy Social History Social History Alcohol intake: current Alcohol intake frequency: holidays/special occasions only Substance Use Type: Marijuana Advance Directives: No Advance Directives Information Provided: Yes Do you have a plan to hurt others: No Plan Physical Exam Vital Signs: Vital Signs: Last Vital Signs Temp 98 F 09/29/24 11:59 Pulse 100 09/29/24 11:59 Resp 19 09/29/24 11:59 BP 140/92 H 09/29/24 11:59 Pulse Ox 97 09/29/24 11:59 O2 Del Method Room Air 09/29/24 11:59 BMI result Body Mass Index 23.7 hypertensive, vitals are otherwise wnl General: Well appearing, in no acute distress. Skin: Warm, dry, intact. No rashes or lesions. Head: Normocephalic, atraumatic. EENT: Hearing is intact b/l. Conjunctiva clear. PERRLA. EOM intact. Moist mucous membranes.? Neck: Supple without LAD. FROM. Cardiac: Chest wall symmetric. RRR. Lungs: Normal respiratory effort without accessory muscle use. CTA bilaterally. Back: No midline spinous or paraspinal tenderness. No step off deformity. Ext: + no deformities, swelling or overlying skin changes to right elbow. Full ROM intact without pain. 2+ radial/ulnar pulse intact. Neuro: AOx3. Normal speech. Strength 5/5 intact throughout. No saddle anesthesia. Sensation intact to light touch. NV intact distally. Ambulating with steady gait. Course Course Course Narrative: This is a Rapid Medical Examination (RME) performed by Sweta Carroll PA-C in triage. Full HPI, ROS, assessment and treatment plan per primary provider in the Main ED. 34 yo male here for eval after slipping down stairs, causing him to fall backwards this morning. no head strike or LOC. no thinners. complains of low back pain and right elbow pain. no back pain red flags. no numbness/tingling/weakness of the UE. Plan: imaging Reevaluation(s) Reevaluation #1: X-ray right elbow and x-ray lumbar spine unremarkable. No acute fractures. Exam is quite benign. Discussed all workup results with patient. Will send naproxen and lidocaine patches to pharmacy for treatment. Patient has remained stable throughout ED visit today. Discussed worrisome signs and symptoms and when to return to the ED. All questions answered at this time. Patient is agreeable with disposition and stable for discharge. Medical Decision Making Medical Decision Making MDM Narrative: 34 year old male with no significant past medical history presents to the ED today for evaluation of right elbow pain and low back pain s/p mechanical fall this morning. Slightly hypertensive, vitals are otherwise WNL. He is nontoxic appearing in no acute distress. Ambulating with steady gait. No back pain red flags. No midline spinous tenderness or step-off deformity. No paraspinal muscle tenderness to palpation. Sensation intact throughout. Strength intact throughout. Neurovascularly intact throughout. No overlying skin changes, edema or deformity to right elbow. Full ROM intact without pain. no tenderness. 2+ radial/ulnar pulse intact. Differential diagnosis includes elbow contusion v fracture, lumbar contusion v msk sprain/ strain v fracture. Unlikely cord compression, Guillain-[place], epidural abscess, cauda equina, neurovascular compromise, threat to limb. Differential Diagnosis Differential Diagnoses: The differential diagnosis associated with the presentation includes As above Admission/Observation Not indicated Independent Interpretation I performed an independent interpretation of an: Plain X-Ray Interpretation: X-ray lumbar spine without fracture or subluxation X-ray right elbow without fracture Radiology Impression Discussion of test interpretation with radiology: I have reviewed the radiologist's reading. Radiologist Impression: Procedure(s): XR lumbar spine 2-3V Accession Number(s): [id number] cc: Physician,None ; iY Carroll~ EXAMINATION: XR LUMBOSACRAL SPINE CLINICAL INFORMATION: fall backwards onto low back COMPARISON: 07/05/2019. TECHNIQUE: Four views of the lumbosacral spine. FINDINGS: Transitional lumbosacral anatomy, with hypoplastic ribs at T12. Partially sacralized L5. Minimal levoconvex scoliosis, apex L4. Normal lumbar lordosis. No fracture, compression deformity, or suspicious bone lesion. There is a 6 mm anterolisthesis of L4 on L5. Alignment is otherwise anatomic. Mild disc degeneration L4-5 and L5-S1. Disc spaces otherwise normal. There are probable pars defects at L4. No soft tissue abnormalities. XR/XR lumbar spine 2-3V IMPRESSION: 1. Transitional lumbosacral anatomy. 2. No acute fracture or compression deformity. 3. 6 mm spondylolisthesis L4 on L5. Electronically signed by: Chaz Jameson MD 09/29/2024 11:38 AM EDT Procedure(s): XR elbow RT min 3V Accession Number(s): [id number] cc: Physician,None ; Yi Carroll~ EXAMINATION: XR ELBOW 3 VIEWS RIGHT HISTORY: fall onto elbow COMPARISON: There are no prior studies available for comparison. FINDINGS: Three views of the right elbow are submitted. Osseous mineralization is normal. There is no fracture or dislocation. The joint spaces are preserved. The soft tissues are unremarkable. XR/XR elbow RT min 3V IMPRESSION: Unremarkable examination of the right elbow. Electronically signed by: Darren Burden MD 09/29/2024 11:39 AM EDT RP Prescription Management I considered prescription management with: Pain Medication Social Determinants Patient?s care significantly limited by Social Determinants of Health including: Other Social Determinant of Health Critical Care Time Critical Care Time Critical Care Time: No Discharge Plan Discharge Clinical Impression: Fall (on) (from) other stairs and steps, initial encounter Patient Disposition: Home, Self-Care Instructions: Fall Prevention (ED) Additional Instructions: You were evaluated in the ED today following a slip and fall. The xrays of your right elbow and low back are normal. I am sending Naproxen to your pharmacy for you to take as needed for pain. Do not take this with other NSAIDs as this can cause GI bleeding. Return with new or worsening symptoms. In the case of an emergency call 911. Prescriptions: New lidocaine [Lidoderm] 5 % adhesive patch,medicated 1 patch topical DAILY Qty: 15 0RF Rx Instructions: leave on most painful area for up to 12 hrs naproxen 500 mg tablet 500 mg PO Q12H PRN (Reason: pain (scale score 1-3)) Qty: 20 0RF No Action ibuprofen 600 mg tablet 600 mg PO Q8H PRN (Reason: pain) Qty: 30 0RF amlodipine 5 mg tablet 5 mg PO DAILY Qty: 30 1RF penicillin V potassium 500 mg tablet 500 mg PO BID 10 Days Qty: 20 0RF naproxen 500 mg tablet 500 mg PO BID 7 Days Qty: 14 0RF chlorhexidine gluconate [Peridex] 0.12 % mouthwash 15 ml buccal BID Qty: 118 0RF amoxicillin-pot clavulanate 875-125 mg tablet 1 tab PO Q12H 7 Days Qty: 14 0RF tramadol 50 mg tablet 50 mg PO Q8H PRN (Reason: pain (scale score 4-6)) Qty: 7 0RF amoxicillin-pot clavulanate 875-125 mg tablet 1 tab PO BID Qty: 14 0RF chlorhexidine gluconate [Peridex] 0.12 % mouthwash 15 ml buccal BID Qty: 120 0RF oxycodone 5 mg tablet 5 mg PO Q6H PRN (Reason: pain) Qty: 8 0RF Rx Instructions: Partial Fill upon patient request. dicyclomine 10 mg capsule 10 mg PO QID PRN (Reason: abdominal pain) Qty: 20 0RF acetaminophen [Tylenol] 325 mg tablet 650 mg PO Q6H PRN (Reason: pain) Qty: 30 0RF erythromycin 5 mg/gram (0.5 %) ointment 0.5 inch ophthalmic (eye) QID Qty: 3.5 0RF Referrals: Physician,None [Primary Care Provider] - Stand Alone Forms: Work/School Release Interventions: ED Discharge Assessment Last Done: 09/29/24 11:59 Discharge Date/Time: 09/29/24 12:00 Print Language: Yoruba
[2024-09-29 11:59] VITALS: BP 140/92; PULSE 100; RESP 19; TEMP 36.6; O2SAT 97
--- OUTSIDE RECORDS SUMMARY | 2024-09-29 13:41 | XMS_ITS | Clinical Summary ---
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 90 tablet 2 08/25/2024 Active Active Problems Problem Noted Date Diagnosed Date Elevated blood pressure reading 08/25/2024 Hypertension 08/25/2024 Assessment & Plan (08/25/2024 12:24 PM EST): Pt with persistently elevated bp readings at home and at clinic since etoh withdrawal 1 week ago Reviewed that bp will likely continue to improve with ongoing sobriety Increase amlodipine to 10 mg daily (new rx sent) Pt to Return to clinic for persistently elevated bp or s/s of hypotension Return to clinic in 1 month with pcp , sooner prn Tongue wound 08/25/2024 Assessment & Plan (08/25/2024 12:26 PM EST): Complete abx as prescribed, Return to clinic for worsening symptoms, or increased pain or exudate Alcohol dependence in remission 08/25/2024 Assessment & Plan (08/25/2024 12:25 PM EST): Pt reports success with sobriety before, declines additional pharmacologic support Aware of crs resources Encounters Date Type Department Care Team Description 08/25/2024 10:00 AM EST Office Visit [facility] [address] [place] [address] Estefanía William NP Elevated blood pressure reading (Primary Dx); Hypertension, unspecified type; Tongue wound, initial encounter; Alcohol dependence in remission (CMS/HCC) from Last 3 Months Social History Tobacco Use Types Packs/Day Years Used Date Smoking Tobacco: Never Assessed Comments Unknown Sex and Gender Information Value Date Recorded Sex Assigned at Choose not to disclose 09/2024 9:55 AM EST Legal Sex Male 1:49 PM EDT Gender Identity Choose not to disclose 9:55 AM EST Sexual Orientation Straight 08/25/2024 9: 55 AM EST Last Filed Vital Signs Vital Sign Reading Time Taken Comments Blood Pressure 144/93 08/25/2024 10:08 AM EST Pulse 85 08/25/2024 10:08 AM EST Temperature 36.7 ??C (98.1 ??F) 08/25/2024 10:[address] Respiratory Rate 16 08/25/2024 10:08 AM EST Oxygen Saturation 98% 08/25/2024 10:08 AM EST Inhaled Oxygen Concentration - - Weight 79.4 kg (175 lb) 08/25/2024 10:08 AM EST Height - - Body Mass Index - - Plan of Treatment Health Maintenance Due Date Last Done Comments Depression Screening 1988 HIV Screening 1988 Lipid Panel 1988 SDOH Screening 1988 Alcohol/Substance Use Screening 2000 Tobacco Screening 2000 Family Planning (PISQ) 2003 Hepatitis C Screening 2006 DTaP/Tdap/Td Vaccines (1 - Tdap) 2007 Hepatitis B Vaccines (1 of 3 - 19+ 3-dose series) 2007 Pneumococcal Vaccine: Pediat rics (0 to 5 Years) and At-Risk Patients (6 to 49) Years) (1 of 2 - PCV) 2007 COVID-19 Vaccine ( - 2023-2 5 season) 2024 Influenza Vaccine (#1) 2024 Zoster Vaccines (1 of 2) 2038 RSV Patients and Pa tients Aged 60 years or older (1 - 1-dose 75+ series) 2063 HIB Vaccines Aged Out No longer eligi ble based on patient's age to complete this topic HPV Vaccines Aged Out No longer eligi ble based on patient's age to complete this topic Hepatitis A Vaccines Aged Out No long er eligible based on patient's age to complete this topic IPV Vaccines Aged Out No longer eligi ble based on patient's age to complete this topic Meningococcal Vaccine Aged Out No bryant blanka eligible based on patient's age to complete this topic RSV under 20 months Aged Out No longe r eligible based on patient's age to complete this topic Rotavirus Vaccines Aged Out No longer eligible based on patient's age to complete this topic Insurance [facility] C3
== END 2024-09-29 12:00 | disposition home or self-care (01) ==
PROVIDERS: Emergency Provider Emergency Medicine
DX: M25.521 Pain in right elbow (principal); M54.50 Low back pain, unspecified; Z91.81 History of falling
CPT/HCPCS: 72100; 73080; 99282; 99283

== ENCOUNTER → 2024-09-29 11:09 | Outpatient (BNV) | payer MEDICAID, SELFPAY | PROVIDERS: Emergency Provider Emergency Medicine; Visit Provider Radiology Diagnostic Radiology | DX: S39.92XA Unspecified injury of lower back, initial encounter (principal); S59.901A Unspecified injury of right elbow, initial encounter | CPT/HCPCS: 72100; 73080 ==

== ENCOUNTER 2024-10-21 14:46 | Emergency (ER) | payer MEDICAID, SELFPAY ==
--- NOTE | ~2024-10-21 | XR_ITS ---
EXAMINATION: XR THORACIC SPINE CLINICAL INFORMATION: back pain COMPARISON: 07/05/2019. Correlation made with CT abdomen and pelvis 02/06/2023. TECHNIQUE: 3 views of the thoracic spine were obtained. FINDINGS: There are mild superior endplate compression deformities of T7, T8, and T9, age indeterminate and appear new when with CT abdomen and pelvis 02/06/2023. These could potentially be acute or subacute. No additional fracture, compression deformity, or suspicious bone lesion evident. No scoliosis, normal kyphosis. No subluxation. Disc spaces appear preserved. Normal facet alignment. XR/XR thoracic spine 3V IMPRESSION: There are mild superior endplate compression deformities of T7, T8, and T9. These are age indeterminate, but were not present in 2019, and also the T9 fracture was not present on CT abdomen and pelvis of 02/06/2023. These could be acute or subacute. Electronically signed by: Chaz Jameson MD 10/21/2024 03:57 PM EDT
--- NOTE | ~2024-10-21 | XR_ITS ---
EXAMINATION: XR CHEST CLINICAL INFORMATION: SOB COMPARISON: 11/27/2020. TECHNIQUE: 2 views of the chest were obtained. FINDINGS: The cardiac, hilar, and mediastinal contours are normal. The lungs are clear bilaterally. There is no pneumothorax or pleural effusion. There is no focal osseous or soft tissue abnormality. XR/XR chest 2V IMPRESSION: Normal chest. Electronically signed by: Chaz Jameson MD 10/21/2024 03:51 PM EDT
[2024-10-21 15:18] VITALS: BP 152/109; PULSE 101; RESP 18; TEMP 37; O2SAT 97; BMI 23.2
--- NOTE | 2024-10-21 15:20 | ED_ITS ---
HPI - General Adult General Chief complaint: Back Pain/Injury Stated complaint: Back pain Time Seen by Provider: 10/21/24 21:31 Source: patient Mode of arrival: ambulatory Limitations: no limitations History of Present Illness ED Provider: barbara ashley np HPI narrative: patient is a 34-year-old male who presents emergency department for evaluation of thoracic back pain. Reports that a few months ago he had a seizure (has history of alcohol withdrawal seizure ) reports that he fell at this time resulting in injury to his back. He states that pain has been persistent since that time. states for approximately 1 week after the initial injury he was taking some medication but then stopped taking it. States the pain is in his upper back, between the shoulder blades, and with certain movement he feels pain radiating to the lateral portion of his chest mid axillary line. he states about 1 month ago he had a slip and fall down the stairs but felt as though he hurt his lower back not his upper back where he continues to have pain at this time. He denies dizziness, lightheadedness, chest pain, shortness of breath, difficulty breathing, numbness or tingling of the extremities, bladder bowel dysfunction. Related Data Previous Rx's ?Medication ?Instructions ?Recorded ibuprofen 600 mg tablet 600 mg PO Q8H PRN pain #30 tabs 07/05/20 amlodipine 5 mg tablet 5 mg PO DAILY #30 tabs 04/29/21 dicyclomine 10 mg capsule 10 mg PO QID PRN abdominal pain 02/06/23 #20 caps acetaminophen 325 mg tablet 650 mg (2 x 325 mg) PO Q6H PRN 11/05/23 (Tylenol) pain #30 tabs chlorhexidine gluconate 0.12 % 15 ml buccal BID #118 mL 04/02/24 mouthwash (Peridex) naproxen 500 mg tablet 500 mg PO BID 7 days #14 tabs 04/02/24 penicillin V potassium 500 mg 500 mg PO BID 10 days #20 tabs 04/02/24 tablet amoxicillin 875 mg-potassium 1 tab PO Q12H 7 days #14 tabs 06/14/24 clavulanate 125 mg tablet tramadol 50 mg tablet 50 mg PO Q8H PRN pain (scale score 06/14/24 4-6) #7 tabs erythromycin 5 mg/gram (0.5 %) eye 0.5 inch ophthalmic (eye) QID #3.5 08/07/24 ointment grams amoxicillin 875 mg-potassium 1 tab PO BID #14 tabs 08/20/24 clavulanate 125 mg tablet chlorhexidine gluconate 0.12 % 15 ml buccal BID #120 mL 08/20/24 mouthwash (Peridex) oxycodone 5 mg tablet 5 mg PO Q6H PRN pain #8 tabs 08/20/24 lidocaine 5 % topical patch 1 patch topical DAILY #15 ea 09/29/24 (Lidoderm) naproxen 500 mg tablet 500 mg PO Q12H PRN pain (scale 09/29/24 score 1-3) #20 tabs Allergies Allergy/AdvReac Type Severity Reaction Status Date / Time No Known Allergies Allergy Verified 10/21/24 15:20 Review of Systems 2 Review of Systems: Yes all other systems are reviewed and are negative [facility] Past Medical History Attestation statement: The following information was validated with the patient. Source: old records reviewed Medical History Asthma Surgical History History of tonsillectomy and adenoidectomy Social History Social History Alcohol intake: current Alcohol intake frequency: holidays/special occasions only Substance Use Type: Marijuana Advance Directives: No Advance Directives Information Provided: No Physical Exam ED Vital Signs: Vital Signs - 24 hr 10/21/24 15:18 10/21/24 21:39 10/21/24 22:38 Temperature 98.6 F 98.0 F Pulse Rate 101 H 79 92 Respiratory Rate 18 18 18 Blood Pressure 152/109 H 178/108 H 163/116 H Pulse Oximetry 97 97 85 L Oxygen Delivery Method Room Air Room Air Room Air BMI result Body Mass Index 23.2 Appearance: Alert.?Oriented to person, place and time. No acute distress.?Normal affect. CVS: Heart sounds normal. Normal heart rate and rhythm.? Pulses normal.?? Respiratory: No respiratory distress.? Lung sounds clear to auscultation bilaterally?? Abdomen: Soft and non-tender. Normoactive bowel sounds. back: Diffuse lower midline thoracic spine tenderness without palpable step- offs or deformities, palpable tenderness to the bilateral thoracic paraspinal muscles? Skin: Skin warm and dry.? Normal skin color.? Extremities: No lower extremity edema.?? Neuro: Moves all extremities spontaneously. Sensation intact bilaterally. No focal neuro deficits. Ambulates with normal steady gait. Course Course Course Narrative: This is an RME: Additional HPI, ROS, PE not included below will be deferred to primary provider. RME assessment and note performed by: Jyoti Fernandez PA-C This is a [id number] who presents to the ER with concerns for back pain. Patient reports that he was seizures several months ago and injured his back. He states that the pain is only getting worse. He states that the pain is in his upper back and radiates into his chest. He was seen in the beginning of September which was reported after a slip and fall down several stairs. Patient appears to be a poor historian in regards to his back pain. Denies any numbness, tingling, or weakness. He states that he was previously on she seizure medication however states that he stopped them. It appears that patient has a history of EtOH withdrawal seizures. Pain is bilateral in the thoracic region radiating into his chest. He does endorse some shortness of breath. Denies any history of IVDA. Plan: Labs, EKG, CXR, xr t spine Medications Administered Discontinued Medications Generic Name Dose Route Start Last Admin Trade Name Freq PRN Reason Stop Dose Admin Amlodipine Besylate 10 mg 10/21/24 21:51 10/21/24 22:02 Amlodipine Besylate 10 Mg Tablet PO 10/21/24 21:52 10 mg ONCE ONE Administration Protocol Ketorolac Tromethamine 15 mg 10/21/24 21:46 10/21/24 22:01 Ketorolac Tromethamine 15 Mg/Ml Vial IM 10/21/24 21:47 15 mg ONCE ONE Administration Lidocaine 1 patch 10/21/24 21:46 10/21/24 22:01 Lidocaine 4 % Patch Adh..Patch TRANSDERMA 10/21/24 21:47 1 patch ONCE ONE Administration Protocol Medical Decision Making Medical Decision Making MDM Narrative: patient is a 34-year-old male with past medical history of hypertension, alcohol use disorder, alcohol withdrawal seizure who presents emergency department for evaluation of persistent thoracic back pain over the past few months as per HPI s/p seizure with fall onto his back. Has not been taking any OTC analgesics since the 1st week after injury. States that he wanted evaluation today as the pain has not resolved. On evaluation he has no palpable deformities of the thoracic spine or any notable step-offs, he has midline tenderness diffusely throughout the lower spine as well as along the paraspinal muscles. Lumbar spine is benign on examination, no bladder bowel dysfunction, no saddle paresthesias, numbness tingling or weakness to the lower extremities. No history of IVDA, immuno compromising conditions that would suggest epidural/ spinal abscess. No overlying skin changes erythema or warmth. He is in no respiratory distress, LS CTA no hypoxia or tachypnea. No associated chest pain. He did arrive hypertension, states he did not take his antihypertensive medications today. He denies dizziness, headache, vision changes. XR was obtained prior to my assumption of care revealing compression fracture of T7, T8, T9, suspect this was from his fall/ injury. Will trial ketorolac at this time in addition to lidocaine patch, patient to be provided with his amlodipine 10 mg. patient requesting to be discharged home at this time which I feel is reasonable. Reports improvement in pain with NSAID and lidocaine patch. Differential Diagnosis Differential Diagnoses: The differential diagnosis associated with the presentation includes ( See narrative above) Admission/Observation Consideration of admission/observation: Escalation of care including admission/observation considered Lab Data MDM Lab Attestation statement: I reviewed the patient's lab results. CBC is without leukocytosis anemia or thrombocytopenia. No electrolyte derangement. No ZAIDA. 10/21/24 15:58 10/21/24 15:58 Labs: Lab Results 10/21/24 Range/Units 15:58 WBC 6.8 (4.8-10.8) X10*3/uL RBC 5.03 (4.60-5.80) X10*6/uL Hgb 15.6 (14.0-18.0) g/dl Hct 45.2 (42.0-52.0) % MCV 89.9 (80.0-98.0) fL MCH 31.0 (27.0-33.0) pg MCHC 34.5 (31.0-36.0) g/dl RDW 13.5 (11.0-16.0) % Plt Count 268 D (160-400) X10*3/uL MPV 8.1 L (9.4-12.4) fL Immature Gran % (Auto) 0.1 (0.0-0.4) % Neut % (Auto) 44.6 L (45-73) % Lymph % (Auto) 45.4 H (20-40) % [place] % (Auto) 8.0 (2-11) % Eos % (Auto) 0.7 (0-4) % Baso % (Auto) 1.2 (0-2) % Lymph # (Auto) 3.1 (1.2-4.9) X10*3/uL [place] # (Auto) 0.5 (0.1-1.2) X10*3/uL Eos # (Auto) 0.1 (0.0-0.4) X10*3/uL Baso # (Auto) 0.1 (0.0-0.2) X10*3/uL Abs Immat Gran (auto) 0.01 (0.00-0.03) X10*3/uL Absolute Neuts (auto) 3.0 (2.0-8.3) x10*3/uL Absolute Nucleated RBC 0.020 H (0.0-0.012) X10*3/uL Nucleated RBC % (auto) 0.3 H (0.0-0.2) /100WBC Sodium 141 (135-145) mmol/L Potassium 3.9 (3.3-5.1) mmol/L Chloride 106 (96-108) mmol/L Carbon Dioxide 24 (22-29) mmol/L Anion Gap 15 (12-20) BUN 8 L (9-16) mg/dL Creatinine 0.79 (0.5-1.4) mg/dL Estim Creat Clear Calc 150.1 Estimated GFR > 60 Random Glucose 97 (60-115) mg/dL Calcium 9.0 D (8.4-10.2) mg/dL Total Bilirubin 0.6 (0.0-1.0) mg/dL Direct Bilirubin 0.2 (0.0-0.5) mg/dL AST 44 H (5-37) U/L ALT 49 H (0-40) U/L Alkaline Phosphatase 101 (39-117) U/L Troponin I High Sens < 2.7 (<3.5-35.0) ng/L Total Protein 7.6 (6.5-8.0) g/dL Albumin 4.4 (3.5-5.0) g/dL Independent Interpretation I performed an independent interpretation of an: EKG ( Normal sinus rhythm with ventricular rate of 95, QTC 432, no ST-elevation.) and Plain X-Ray Radiology Impression Discussion of test interpretation with radiology: I have reviewed the radiologist's reading. Radiologist Impression: XR/XR chest 2V IMPRESSION: Normal chest. External Record Review External record reviewed: Outpatient record Prescription Management I considered prescription management with: Pain Medication Discharge Plan Discharge Clinical Impression: Hypertension Compression fracture of thoracic vertebra Qualifiers: Encounter type: initial encounter Patient Disposition: Home, Self-Care Instructions: Vertebral Compression Fracture (ED) Additional Instructions: as discussed, x-ray today shows that you have compression fractures in your thoracic spine T7, T8, and T9. It is possible that these were results from the previous fall/ injury that you had. Treatment of this includes pain medication; You can take ibuprofen 200 mg, 3 tablets (600mg) every 6-8 hours as needed for pain, in addition to Tylenol 500 mg, 2 tablets (1,000mg) every 4-6 hours as needed for pain, but not to exceed 3 doses daily (3,000mg).? ice/heat for 10-15 minutes 3-4 times daily. Refrain from heavy lifting. follow-up with your primary care doctor, they may consider a course of physical therapy if symptoms are not improving. You may return with any new or worsening symptoms or concerns. Your blood pressure was elevated while in the emergency department, continue taking your blood pressure medications as previously prescribed Prescriptions: No Action ibuprofen 600 mg tablet 600 mg PO Q8H PRN (Reason: pain) Qty: 30 0RF amlodipine 5 mg tablet 5 mg PO DAILY Qty: 30 1RF penicillin V potassium 500 mg tablet 500 mg PO BID 10 Days Qty: 20 0RF naproxen 500 mg tablet 500 mg PO BID 7 Days Qty: 14 0RF chlorhexidine gluconate [Peridex] 0.12 % mouthwash 15 ml buccal BID Qty: 118 0RF amoxicillin-pot clavulanate 875-125 mg tablet 1 tab PO Q12H 7 Days Qty: 14 0RF tramadol 50 mg tablet 50 mg PO Q8H PRN (Reason: pain (scale score 4-6)) Qty: 7 0RF amoxicillin-pot clavulanate 875-125 mg tablet 1 tab PO BID Qty: 14 0RF chlorhexidine gluconate [Peridex] 0.12 % mouthwash 15 ml buccal BID Qty: 120 0RF oxycodone 5 mg tablet 5 mg PO Q6H PRN (Reason: pain) Qty: 8 0RF Rx Instructions: Partial Fill upon patient request. lidocaine [Lidoderm] 5 % adhesive patch,medicated 1 patch topical DAILY Qty: 15 0RF Rx Instructions: leave on most painful area for up to 12 hrs naproxen 500 mg tablet 500 mg PO Q12H PRN (Reason: pain (scale score 1-3)) Qty: 20 0RF dicyclomine 10 mg capsule 10 mg PO QID PRN (Reason: abdominal pain) Qty: 20 0RF acetaminophen [Tylenol] 325 mg tablet 650 mg PO Q6H PRN (Reason: pain) Qty: 30 0RF erythromycin 5 mg/gram (0.5 %) ointment 0.5 inch ophthalmic (eye) QID Qty: 3.5 0RF Referrals: [facility] [Primary Care Provider] - Print Language: Welsh
--- NOTE | 2024-10-21 15:27 | ECG_ITS ---
Test Reason : SOB Blood Pressure : */* mmHG Vent. Rate : 95 BPM Atrial Rate : 95 BPM P-R Int : 144 ms QRS Dur : 98 ms QT Int : 344 ms P-R-T Axes : 61 26 43 degrees QTcB Int : 432 ms Normal sinus rhythm Septal infarct , age undetermined Abnormal ECG When compared with ECG of 16-Jan-2024 06:45, No significant change was found Referred By: Jyoti Recinos Electronically Signed By: DAVID HUDSON
[2024-10-21 16:05] LABS: MANUAL DIFF FLAG NO
[2024-10-21 16:09] LABS: Basophils Absolute Auto 0.1 X10*3/uL (0.0-0.2); Basophils Percent Auto 1.2 % (0-2); Eosinophils Absolute Auto 0.1 X10*3/uL (0.0-0.4); Eosinophils Percent Auto 0.7 % (0-4); Hematocrit 45.2 % (42.0-52.0); Hemoglobin 15.6 g/dl (14.0-18.0); Imm Gran Abs Auto 0.01 X10*3/uL (0.00-0.03); Imm Gran Pct Auto 0.1 % (0.0-0.4); Lymphocytes Absolute Auto 3.1 X10*3/uL (1.2-4.9); Lymphocytes Percent Auto 45.4 % (20-40); Mean Corpuscular HGB Conc 34.5 g/dl (31.0-36.0); Mean Corpuscular Volume 89.9 fL (80.0-98.0); Mean Platelet Volume 8.1 fL (9.4-12.4); Monocytes Absolute Auto 0.5 X10*3/uL (0.1-1.2); NRBC Pct Auto 0.3 /100WBC (0.0-0.2); Neutrophils Percent Auto 44.6 % (45-73); Platelet Count 268 X10*3/uL (160-400); Red Blood Count 5.03 X10*6/uL (4.60-5.80); Red Cell Distribution Width 13.5 % (11.0-16.0); White Blood Count 6.8 X10*3/uL (4.8-10.8)
[2024-10-21 16:31] LABS: Alanine Aminotransferase 49 U/L (0-40); Albumin Level 4.4 g/dL (3.5-5.0); Anion Gap 15 (12-20); Aspartate Amino Transferase 44 U/L (5-37); Bilirubin Direct 0.2 mg/dL (0.0-0.5); Bilirubin Total 0.6 mg/dL (0.0-1.0); Blood Urea Nitrogen 8 mg/dL (9-16); Carbon Dioxide 24 mmol/L (22-29); Chloride 106 mmol/L (96-108); Creatinine Clr Calc Pharmacy 150.1; Estimated Glomerular Filt Rate > 60; Glucose Random 97 mg/dL (60-115); Potassium 3.9 mmol/L (3.3-5.1); Sodium 141 mmol/L (135-145); Total Protein 7.6 g/dL (6.5-8.0)
[2024-10-21 16:45] LABS: Alkaline Phosphatase 101 U/L (39-117)
[2024-10-21 17:19] LABS: Troponin-I High Sensitivity < 2.7 ng/L (<3.5-35.0)
[2024-10-21 21:39] VITALS: BP 178/108; PULSE 79; RESP 18; TEMP 36.7; O2SAT 97
[2024-10-21] MEDS: Ketorolac Tromethamine 15 MG/ML VIAL IM (22:01)
[2024-10-21] MEDS: Lidocaine 4 % Patch ADH..PATCH 1 PATCH TRANSDERMA (22:01)
[2024-10-21] MEDS: amLODIPine Besylate 10 MG TABLET PO (22:02)
[2024-10-21 22:38] VITALS: BP 163/116; PULSE 92; RESP 18; O2SAT 95
[2024-10-21 23:17] VITALS: BP 163/116; PULSE 92; RESP 18; TEMP -17.7; TEMP 0; O2SAT 95
== END 2024-10-21 23:20 | disposition home or self-care (01) ==
PROVIDERS: Physician Assistant Medical; Emergency Provider Emergency Medicine
DX: I10 Essential (primary) hypertension (principal); S22.060A Wedge compression fracture of T7-T8 vertebra, initial encounter for closed fracture; S22.070A Wedge compression fracture of T9-T10 vertebra, initial encounter for closed fracture; W18.39XA Other fall on same level, initial encounter; M54.6 Pain in thoracic spine; Y93.89 Activity, other specified; Y92.9 Unspecified place or not applicable; Y99.9 Unspecified external cause status
CPT/HCPCS: 36415; 71046; 72072; 80048; 80076; 84484; 85025; 93005; 96372; 99284; J1885

== ENCOUNTER → 2024-10-21 15:27 | Outpatient (BNV) | payer MEDICAID, SELFPAY | PROVIDERS: Emergency Provider Emergency Medicine; Visit Provider Internal Medicine | DX: R94.31 Abnormal electrocardiogram [ECG] [EKG] (principal); R06.02 Shortness of breath | CPT/HCPCS: 93010 ==

== ENCOUNTER → 2024-10-21 15:27 | Outpatient (BNV) | payer MEDICAID, SELFPAY | PROVIDERS: Visit Provider Radiology Diagnostic Radiology | DX: M54.6 Pain in thoracic spine (principal); R06.02 Shortness of breath | CPT/HCPCS: 71046; 72072 ==

== ENCOUNTER 2024-11-18 18:54 | Emergency (ER) | payer MEDICAID, SELFPAY ==
[2024-11-18 19:07] VITALS: BP 147/99; PULSE 101; RESP 20; TEMP 37.4; O2SAT 98; BMI 23.1
--- NOTE | 2024-11-18 19:08 | ED.GENADULT ---
HPI - General Adult General Chief complaint: Dental/Oral Stated complaint: tooth pain Time Seen by Provider: 11/18/24 19:08 Source: patient, RN notes reviewed and old records reviewed Mode of arrival: ambulatory Limitations: no limitations History of Present Illness ED Provider: [place] HPI narrative: 34-year-old male presents for evaluation of facial pain. Patient reports he has an old dental fracture and over the last few days he has been having pain to the right lower molar. He states that he called his dentist and was told to ?get antibiotics and we will see you in 2 weeks. ? His pain is stabbing, 03/01. His pain is worse with chewing Denies any fevers or chills Related Data Previous Rx's ?Medication ?Instructions ?Recorded ibuprofen 600 mg tablet 600 mg PO Q8H PRN pain #30 tabs 07/05/20 amlodipine 5 mg tablet 5 mg PO DAILY #30 tabs 04/29/21 dicyclomine 10 mg capsule 10 mg PO QID PRN abdominal pain 02/06/23 #20 caps acetaminophen 325 mg tablet 650 mg (2 x 325 mg) PO Q6H PRN 11/05/23 (Tylenol) pain #30 tabs chlorhexidine gluconate 0.12 % 15 ml buccal BID #118 mL 04/02/24 mouthwash (Peridex) naproxen 500 mg tablet 500 mg PO BID 7 days #14 tabs 04/02/24 penicillin V potassium 500 mg 500 mg PO BID 10 days #20 tabs 04/02/24 tablet amoxicillin 875 mg-potassium 1 tab PO Q12H 7 days #14 tabs 06/14/24 clavulanate 125 mg tablet tramadol 50 mg tablet 50 mg PO Q8H PRN pain (scale score 06/14/24 4-6) #7 tabs erythromycin 5 mg/gram (0.5 %) eye 0.5 inch ophthalmic (eye) QID #3.5 08/07/24 ointment grams amoxicillin 875 mg-potassium 1 tab PO BID #14 tabs 08/20/24 clavulanate 125 mg tablet chlorhexidine gluconate 0.12 % 15 ml buccal BID #120 mL 08/20/24 mouthwash (Peridex) oxycodone 5 mg tablet 5 mg PO Q6H PRN pain #8 tabs 08/20/24 lidocaine 5 % topical patch 1 patch topical DAILY #15 ea 09/29/24 (Lidoderm) naproxen 500 mg tablet 500 mg PO Q12H PRN pain (scale 09/29/24 score 1-3) #20 tabs amoxicillin 875 mg-potassium 1 tab PO Q12H #14 tabs 11/18/24 clavulanate 125 mg tablet Allergies Allergy/AdvReac Type Severity Reaction Status Date / Time No Known Allergies Allergy Verified 11/18/24 19:09 Review of Systems Constitutional: Constitutional: Denies body ache(s), Denies chills and Denies headache(s) ENT: Denies vertigo, Denies dizziness, Denies headache(s) and Reports mouth pain Cardiovascular: Cardiovascular: Denies chest pain and Denies dyspnea Respiratory: Respiratory: Denies cough and Denies dyspnea Integumentary/Breasts: Skin/Breast: Denies rash Neurologic: Denies vertigo, Denies dizziness and Denies headache(s) [facility] Past Medical History Medical History Asthma Surgical History History of tonsillectomy and adenoidectomy Social History Social History Alcohol intake: current Alcohol intake frequency: holidays/special occasions only Substance Use Type: Marijuana Physical Exam ED Vital Signs: Vital Signs - 24 hr 11/18/24 19:07 Temperature 99.4 F Pulse Rate 101 H Respiratory Rate 20 Blood Pressure 147/99 H Pulse Oximetry 98 Oxygen Delivery Method Room Air BMI result Body Mass Index 23.1 Const General: healthy appearing, comfortable, no acute distress, alert and awake Nutritional Appearance: well nourished Orientation/consciousness: patient oriented x3 HENMT Other: Apparent right lower molar fracture. No surrounding dental abscess. Head: Yes normocephalic and Yes atraumatic Throat: Yes posterior oropharynx normal Eyes Eyelids: Yes eyelids normal Conjunctivae: conjunctivae normal Sclerae: sclerae normal Corneas: corneas normal Pupils: Equal, round and reactive pupils present EOM: EOMs intact bilaterally Neck Neck: Yes full ROM Resp Effort & Inspection: normal respiratory effort, able to speak in complete sentences and not labored Skin General skin exam: elasticity normal Neuro General: patient oriented x3 Cranial nerves: Yes Equal, round and reactive pupils present and Yes Bilaterally intact EOM present Cognition (Neuro): normal cognition Extrem Other: Moving all extremities well without any obvious deformities Medical Decision Making Medical Decision Making MDM Narrative: 34-year-old male presents for evaluation of facial pain. He was an old dental fracture and appears to have a developing infection. There was no evidence of abscess. we will put him on Augmentin for a week and he will follow up with his dentist. Differential Diagnosis Differential Diagnoses: The differential diagnosis associated with the presentation includes Dental caries Dental abscess Gingivitis Dental trauma Facial pain Discharge Plan Discharge Clinical Impression: Atypical face pain, Dental caries Patient Disposition: Home, Self-Care Instructions: Toothache (ED) Additional Instructions: Take Augmentin twice daily for 1 week You may use [id number] benzocaine/orogel Use ibuprofen/Tylenol as needed for pain Follow-up with your dentist Prescriptions: New amoxicillin-pot clavulanate 875-125 mg tablet 1 tab PO Q12H Qty: 14 0RF No Action ibuprofen 600 mg tablet 600 mg PO Q8H PRN (Reason: pain) Qty: 30 0RF amlodipine 5 mg tablet 5 mg PO DAILY Qty: 30 1RF penicillin V potassium 500 mg tablet 500 mg PO BID 10 Days Qty: 20 0RF naproxen 500 mg tablet 500 mg PO BID 7 Days Qty: 14 0RF chlorhexidine gluconate [Peridex] 0.12 % mouthwash 15 ml buccal BID Qty: 118 0RF amoxicillin-pot clavulanate 875-125 mg tablet 1 tab PO Q12H 7 Days Qty: 14 0RF tramadol 50 mg tablet 50 mg PO Q8H PRN (Reason: pain (scale score 4-6)) Qty: 7 0RF amoxicillin-pot clavulanate 875-125 mg tablet 1 tab PO BID Qty: 14 0RF chlorhexidine gluconate [Peridex] 0.12 % mouthwash 15 ml buccal BID Qty: 120 0RF oxycodone 5 mg tablet 5 mg PO Q6H PRN (Reason: pain) Qty: 8 0RF Rx Instructions: Partial Fill upon patient request. lidocaine [Lidoderm] 5 % adhesive patch,medicated 1 patch topical DAILY Qty: 15 0RF Rx Instructions: leave on most painful area for up to 12 hrs naproxen 500 mg tablet 500 mg PO Q12H PRN (Reason: pain (scale score 1-3)) Qty: 20 0RF dicyclomine 10 mg capsule 10 mg PO QID PRN (Reason: abdominal pain) Qty: 20 0RF acetaminophen [Tylenol] 325 mg tablet 650 mg PO Q6H PRN (Reason: pain) Qty: 30 0RF erythromycin 5 mg/gram (0.5 %) ointment 0.5 inch ophthalmic (eye) QID Qty: 3.5 0RF Stand Alone Forms: Work/School Release Print Language: Albanian
[2024-11-18 19:14] VITALS: BP 147/99; PULSE 101; RESP 20; TEMP 37.4; O2SAT 98
== END 2024-11-18 19:24 | disposition home or self-care (01) ==
LOC: HO.ED 19:18
PROVIDERS: Emergency Provider Emergency Medicine
DX: K02.9 Dental caries, unspecified (principal); R51.9 Headache, unspecified
CPT/HCPCS: 99282; 99283

== ENCOUNTER 2024-11-19 10:17 | Emergency (ER) | payer MEDICAID, SELFPAY ==
--- NOTE | ~2024-11-19 | US_ITS ---
EXAMINATION: US ABDOMEN LIMITED CLINICAL INFORMATION: Right upper quadrant pain, abnormal LFTs.. COMPARISON: None available. TECHNIQUE: Real-time imaging of the right upper quadrant abdominal viscera. FINDINGS: PANCREAS: Visualized portions are unremarkable. LIVER: Liver is mildly enlarged. The right lobe measures 16.4 cm in length. The liver contour is normal. Diffusely increased parenchymal echogenicity consistent with steatosis. No focal hepatic lesion. There is no intrahepatic biliary duct dilatation seen. Hepatopedal flow in the main portal vein. GALLBLADDER: The gallbladder is physiologically distended without evidence of stones, sludge, polyps, wall thickening or pericholecystic fluid. Negative sonographic Rockwell's sign. COMMON BILE DUCT: Normal in caliber measuring 0.4 cm in diameter. RIGHT KIDNEY: No hydronephrosis. No renal calculi or focal parenchymal lesions. The kidney measures 11.7 cm in maximum dimension. FREE FLUID: None. US/US abdomen limited IMPRESSION: 1. Mild enlargement and diffuse increased echogenicity of the liver suggestive of steatosis. No suspicious liver lesion. 2. There is normal hepatopedal flow in the main portal vein. 3. No gallbladder or biliary abnormality. 4. The right kidney appears normal. Electronically signed by: Chaz Jameson MD 11/19/2024 12:32 PM EDT
--- NOTE | ~2024-11-19 | XR_ITS ---
EXAMINATION: XR CHEST CLINICAL INFORMATION: palpitations and sob COMPARISON: October 21, 2024. TECHNIQUE: 2 views of the chest were obtained. FINDINGS: No consolidation, pleural effusion or pneumothorax. No hyperinflation. Cardiomediastinal silhouette size is normal. Osseous structures are grossly intact. XR/XR chest 2V IMPRESSION: No acute airspace disease. Electronically signed by: Lorenzo Valero MD 11/19/2024 10:55 AM EDT
[2024-11-19 10:19] VITALS: BP 156/112; PULSE 109; RESP 19; TEMP 36.6; O2SAT 99; BMI 23.1
--- NOTE | 2024-11-19 10:27 | ECG_ITS ---
Test Reason : palpitations and sob Blood Pressure : */* mmHG Vent. Rate : 94 BPM Atrial Rate : 94 BPM P-R Int : 148 ms QRS Dur : 94 ms QT Int : 356 ms P-R-T Axes : 60 15 36 degrees QTcB Int : 445 ms Normal sinus rhythm Moderate voltage criteria for LVH, may be normal variant ( R in aVL , Sokolow-Francis ) Borderline ECG When compared with ECG of 21-Oct-2024 16:00, No significant change was found Referred By: Generic ED Physician Electronically Signed By: Usama Sotelo
[2024-11-19 10:42] LABS: MANUAL DIFF FLAG NO
[2024-11-19 10:44] LABS: Basophils Absolute Auto 0.1 X10*3/uL (0.0-0.2); Eosinophils Percent Auto 0.1 % (0-4); Hematocrit 46.1 % (42.0-52.0); Hemoglobin 16.2 g/dl (14.0-18.0); Imm Gran Abs Auto 0.02 X10*3/uL (0.00-0.03); Imm Gran Pct Auto 0.3 % (0.0-0.4); Lymphocytes Percent Auto 26.1 % (20-40); Mean Corpuscular HGB Conc 35.1 g/dl (31.0-36.0); Mean Corpuscular Hemoglobin 31.3 pg (27.0-33.0); Mean Corpuscular Volume 89.2 fL (80.0-98.0); Mean Platelet Volume 8.9 fL (9.4-12.4); Monocytes Absolute Auto 0.6 X10*3/uL (0.1-1.2); Monocytes Percent Auto 8.1 % (2-11); NRBC Pct Auto 0.3 /100WBC (0.0-0.2); Neutrophils Absolute Auto 4.9 x10*3/uL (2.0-8.3); Neutrophils Percent Auto 64.4 % (45-73); Platelet Count 166 X10*3/uL (160-400); Red Blood Count 5.17 X10*6/uL (4.60-5.80); White Blood Count 7.7 X10*3/uL (4.8-10.8)
--- NOTE | 2024-11-19 10:45 | ED.NAVMDI ---
HPI - Nausea/Vomiting/Diarrhea General Chief complaint: Nausea/Vomiting/Diarrhea Stated complaint: Vomiting blood Time Seen by Provider: 11/19/24 10:44 Source: patient, RN notes reviewed and old records reviewed Mode of arrival: ambulatory Limitations: no limitations History of Present Illness ED Provider: Yonathan Carvalho PA-C HPI Narrative: 34 yo male presents to the ER for evaluation of N/V with blood streaked vomitus for the last 3 days along with 5 days of black stools. He reports history of severe ETOH use disorder, history of withdrawal seizures in the past and HTN. He was previously treated for this in [place] and [place], he has no PCP here. He reports drinking 1 sleeve of vodka nips per day, last drink was a couple hours ago. He states he wakes up SOB and shakey so he drinks. He has been vomiting with blood streaked emesis every morning. He reports RUQ pain as well that he feels is due to liver swelling. He was seen here yesterday for dental pain but did not mention any of these symptoms because he was scared. He wants to stop drinking but he does not want to go to a detox program. MD elicited complaint: nausea, vomiting, abdominal pain and other (melena) Pertinent past history: alcohol abuse Onset (ago): day(s) Description of vomiting: blood-streaked Description of diarrhea: semi-solid Associated nausea: Yes Associated abdominal pain: Yes Location of pain: RUQ Severity: moderate Quality: aching Exacerbating factors: eating Relieving factors: none Context: alcohol abuse Associated symptoms: chest pain, loss of appetite, nausea/vomiting, shortness of breath, weakness, anxiety and palpitation Related Data Previous Rx's ?Medication ?Instructions ?Recorded ibuprofen 600 mg tablet 600 mg PO Q8H PRN pain #30 tabs 07/05/20 amlodipine 5 mg tablet 5 mg PO DAILY #30 tabs 04/29/21 dicyclomine 10 mg capsule 10 mg PO QID PRN abdominal pain 02/06/23 #20 caps acetaminophen 325 mg tablet 650 mg (2 x 325 mg) PO Q6H PRN 11/05/23 (Tylenol) pain #30 tabs chlorhexidine gluconate 0.12 % 15 ml buccal BID #118 mL 04/02/24 mouthwash (Peridex) naproxen 500 mg tablet 500 mg PO BID 7 days #14 tabs 04/02/24 penicillin V potassium 500 mg 500 mg PO BID 10 days #20 tabs 04/02/24 tablet amoxicillin 875 mg-potassium 1 tab PO Q12H 7 days #14 tabs 06/14/24 clavulanate 125 mg tablet tramadol 50 mg tablet 50 mg PO Q8H PRN pain (scale score 06/14/24 4-6) #7 tabs erythromycin 5 mg/gram (0.5 %) eye 0.5 inch ophthalmic (eye) QID #3.5 08/07/24 ointment grams amoxicillin 875 mg-potassium 1 tab PO BID #14 tabs 08/20/24 clavulanate 125 mg tablet chlorhexidine gluconate 0.12 % 15 ml buccal BID #120 mL 08/20/24 mouthwash (Peridex) oxycodone 5 mg tablet 5 mg PO Q6H PRN pain #8 tabs 08/20/24 lidocaine 5 % topical patch 1 patch topical DAILY #15 ea 09/29/24 (Lidoderm) naproxen 500 mg tablet 500 mg PO Q12H PRN pain (scale 09/29/24 score 1-3) #20 tabs amoxicillin 875 mg-potassium 1 tab PO Q12H #14 tabs 11/18/24 clavulanate 125 mg tablet naltrexone 50 mg tablet See Rx Instructions .Route 11/19/24 .COMPLEX #30 tabs pantoprazole 40 mg tablet,delayed 40 mg PO DAILY #30 tabs 11/19/24 release (Protonix) thiamine HCl (vitamin B1) 100 mg 100 mg PO DAILY #30 tabs 11/19/24 tablet Allergies Allergy/AdvReac Type Severity Reaction Status Date / Time No Known Allergies Allergy Verified 11/19/24 10:23 Review of Systems Review of Systems: Yes all other systems are reviewed and are negative Gastrointestinal: Gastrointestinal: Reports nausea PMFSH Past Medical History Medical History Asthma Surgical History History of tonsillectomy and adenoidectomy Social History Social History Alcohol intake: current Alcohol intake frequency: 3 or more drinks per day Substance Use Type: Marijuana Advance Directives: No Advance Directives Information Provided: Yes Do you have a plan to hurt others: No Plan Physical Exam Vital Signs: Vital Signs: Last Vital Signs Temp 98.7 F 11/19/24 15:29 Pulse 100 11/19/24 15:29 Resp 15 11/19/24 15:29 BP 145/90 H 11/19/24 15:29 Pulse Ox 97 11/19/24 15:29 O2 Del Method Room Air 11/19/24 15:29 BMI result Body Mass Index 23.1 Appearance: Alert. Oriented X3. Anxious Head: normocephalic, atraumatic. Eyes: Pupils equal, round and reactive to light. anicteric sclera ENT: Pharynx normal. No tonsillar swelling or exudate. Neck: Normal inspection. Neck supple. CVS: Tachycardic, regular rhythm. Pulses normal. Respiratory: No respiratory distress. Breath sounds normal. Abdomen: somewhat tense, flat, mild RUQ tenderness to deep palpation normal active +BS x4 Skin: Skin warm and dry. Normal skin color. Normal skin turgor. No rashes. Extremities: No lower extremity edema. No joint swelling. Neuro/psych: Oriented X 3. No motor deficit. No sensory deficit. CN II-XII intact. Normal speech and cognition. Medications Administered Discontinued Medications Generic Name Dose Route Start Last Admin Trade Name Freq PRN Reason Stop Dose Admin Chlordiazepoxide HCl 25 mg 11/19/24 10:56 11/19/24 11:44 Chlordiazepoxide Hcl 25 Mg Capsule PO 11/19/24 10:57 25 mg ONCE ONE Administration Chlordiazepoxide HCl 25 mg 11/19/24 15:15 11/19/24 15:27 Chlordiazepoxide Hcl 25 Mg Capsule PO 11/19/24 15:16 25 mg ONCE ONE Administration Lactated Ringer's 1,000 mls @ 999 mls/hr 11/19/24 10:45 11/19/24 12:44 Lr IV 11/19/24 11:45 Infused .Q1H1M ILAN Infusion Ondansetron HCl 4 mg 11/19/24 10:45 11/19/24 11:34 Ondansetron Hcl 4 Mg/2 Ml Vial IVPUSH 11/19/24 10:46 4 mg ONCE ONE Administration Pantoprazole Sodium 40 mg 11/19/24 10:45 11/19/24 11:35 Pantoprazole Sodium 40 Mg/10 Ml Vial IVPUSH 11/19/24 10:46 40 mg ONCE ONE Administration Medical Decision Making Medical Decision Making [facility] Narrative: 34 yo male with history of ETOH use disorder, history of withdrawal seizures and HTN noncompliant with meds who presents to the ER for evaluation of blood streaked emesis for the last 3 days and melena for the last 5 days. He has associated RUQ pain and is drinking 1 sleeve of vodka per day. Tachycardic and hypertensive on arrival. Anxious. Labs showing elevated ETOH level 386. Labs with mild hyponatremia, anion gap 24 likely due to starvation ketosis. he has not eaten much in 3 days, only drinking alcohol then vomiting. LFTs up from prior. RUQ U/S showing normal portal flow, hepatic steatosis LFT elevation likely due to alcoholic hepatitis. treatment is abstaining from ETOH and nutrition. H/H stable from prior. no evidence of active blood loss. declining DANIELLE likely robe elias vs gastritis. will start protonix we discussed admission vs etoh detox. he is not willing to do either. spoke with adam from recovery and he would like to start oral naltrexone. he started a new job and does not want to lose it strict return precautions discussed. PPI, thiamine and naltrexone sent to his pharmacy. encouraged to come back to the ER if he would like detox or admission. mom at bedside to take him home. Differential Diagnosis Differential Diagnoses: The differential diagnosis associated with the presentation includes ETOH withdrawal, alcoholic hepatitis, UGIB, esophageal varies, gastritis, robe elias tear, starvation ketosis Admission/Observation Consideration of admission/observation: Escalation of care including admission/observation considered Lab Data [facility] Lab Attestation statement: I reviewed the patient's lab results. tranaminitis, hyponatremia, anion gap metabolic acidosis 11/19/24 10:37 11/19/24 10:37 Labs: Lab Results 11/19/24 11/19/24 Range/Units 10:36 10:37 WBC 7.7 (4.8-10.8) X10*3/uL RBC 5.17 (4.60-5.80) X10*6/uL Hgb 16.2 (14.0-18.0) g/dl Hct 46.1 (42.0-52.0) % MCV 89.2 (80.0-98.0) fL MCH 31.3 (27.0-33.0) pg MCHC 35.1 (31.0-36.0) g/dl RDW 14.0 (11.0-16.0) % Plt Count 166 D (160-400) X10*3/uL MPV 8.9 L (9.4-12.4) fL Immature Gran % (Auto) 0.3 (0.0-0.4) % Neut % (Auto) 64.4 (45-73) % Lymph % (Auto) 26.1 (20-40) % [place] % (Auto) 8.1 (2-11) % Eos % (Auto) 0.1 (0-4) % Baso % (Auto) 1.0 (0-2) % Lymph # (Auto) 2.0 (1.2-4.9) X10*3/uL [place] # (Auto) 0.6 (0.1-1.2) X10*3/uL Eos # (Auto) 0.0 (0.0-0.4) X10*3/uL Baso # (Auto) 0.1 (0.0-0.2) X10*3/uL Abs Immat Gran (auto) 0.02 (0.00-0.03) X10*3/uL Absolute Neuts (auto) 4.9 (2.0-8.3) x10*3/uL Absolute Nucleated RBC 0.020 H (0.0-0.012) X10*3/uL Nucleated RBC % (auto) 0.3 H (0.0-0.2) /100WBC PT 10.3 L (10.9-12.4) SEC INR 0.9 (0.9-1.1) Sodium 131 L (135-145) mmol/L Potassium 3.8 (3.3-5.1) mmol/L Chloride 92 L (96-108) mmol/L Carbon Dioxide 19 L (22-29) mmol/L Anion Gap 24 H (12-20) BUN 8 L (9-16) mg/dL Creatinine 0.78 (0.5-1.4) mg/dL Estim Creat Clear Calc 151.1 Estimated GFR > 60 Random Glucose 99 (60-115) mg/dL Calcium 9.2 (8.4-10.2) mg/dL Total Bilirubin 1.4 H (0.0-1.0) mg/dL Direct Bilirubin 0.4 (0.0-0.5) mg/dL AST 220 H (5-37) U/L ALT 183 H (0-40) U/L Alkaline Phosphatase 123 H (39-117) U/L Troponin I High Sens 4.9 D (<3.5-35.0) ng/L Total Protein 8.0 (6.5-8.0) g/dL Albumin 4.8 (3.5-5.0) g/dL Lipase 38 (8-78) U/L Ethyl Alcohol 386 H* mg/dL Influenza Type A (PCR) NEGATIVE (Negative) Influenza Type B (PCR) NEGATIVE (Negative) RSV RNA Qual (PCR) NEGATIVE (Negative) SARS-CoV-2 RNA (RT-PCR) NEGATIVE (Negative) Independent Interpretation I performed an independent interpretation of an: Ultrasound Interpretation: no dilated bile ducts, no gallstones seen Radiology Impression Discussion of test interpretation with radiology: I have reviewed the radiologist's reading. Radiologist Impression: US/US abdomen limited IMPRESSION: 1. Mild enlargement and diffuse increased echogenicity of the liver suggestive of steatosis. No suspicious liver lesion. 2. There is normal hepatopedal flow in the main portal vein. 3. No gallbladder or biliary abnormality. 4. The right kidney appears normal. Independent Historian Clinical information obtained from an independent historian. History obtained from or confirmed by: Parent External Record Review External record reviewed: Outpatient record and Prior outpatient labs Prescription Management I considered prescription management with: Other (librium, ppi, naltrexone) Chronic Conditions Patient?s care impacted by: Other (ETOH use disorder) Social Determinants Patient?s care significantly limited by Social Determinants of Health including: Alcoholism and drug addiction in family and Problems related to primary support group Critical Care Time Critical Care Time Critical Care Time: Yes Total Critical Care Time: 33 Attestation: I have personally provided critical care time exclusive of time spent on separately billable procedures. Time includes review of lab data, radiology results, discussion with consultants, and monitoring for potential decompensation. Intervention performed as documented. Discharge Plan Discharge Clinical Impression: Alcohol use disorder Alcoholic hepatitis Qualifiers: Ascites presence: unspecified Qualified Code(s): K70.10 - Alcoholic hepatitis without ascites Patient Disposition: Home, Self-Care Instructions: Alcohol Use Disorder (ED) Additional Instructions: Your liver enzymes are elevated and your liver is inflammed due to your alcohol use. Recommend tapering off of alcohol over time. Follow up with the CCC listed below. Alcohol use disorder You were seen in the Emergency Department today for treatment of alcohol use disorder.? You may have been given medications to help with your withdrawal symptoms.? Please do not drink alcohol with them. This is very dangerous and can cause respiratory depression or other adverse reactions depending on the medication. If you would like to cut down or stop your alcohol use please consider calling our outpatient Addiction Treatment office:? [facility] (-F [id number]) [address] [place] [address] [address] ? You have also been given a list of treatment providers in the area that can assist as well.? If you experience seizures, vomiting blood, black stools, falls, severe headache, chest pain, fevers, trouble breathing, hallucinations or any other concerns you need to call 911 or seek immediate care. Please stay hydrated. Prescriptions: New naltrexone 50 mg tablet See Rx Instructions .ROUTE .COMPLEX Qty: 30 0RF Rx Instructions: take 1/2 tab (25 mg) for 3 days then increase to 1 tab (50mg) daily thiamine HCl (vitamin B1) 100 mg tablet 100 mg PO DAILY Qty: 30 0RF pantoprazole [Protonix] 40 mg tablet,delayed release (DR/EC) 40 mg PO DAILY Qty: 30 0RF No Action ibuprofen 600 mg tablet 600 mg PO Q8H PRN (Reason: pain) Qty: 30 0RF amlodipine 5 mg tablet 5 mg PO DAILY Qty: 30 1RF penicillin V potassium 500 mg tablet 500 mg PO BID 10 Days Qty: 20 0RF naproxen 500 mg tablet 500 mg PO BID 7 Days Qty: 14 0RF chlorhexidine gluconate [Peridex] 0.12 % mouthwash 15 ml buccal BID Qty: 118 0RF amoxicillin-pot clavulanate 875-125 mg tablet 1 tab PO Q12H 7 Days Qty: 14 0RF tramadol 50 mg tablet 50 mg PO Q8H PRN (Reason: pain (scale score 4-6)) Qty: 7 0RF amoxicillin-pot clavulanate 875-125 mg tablet 1 tab PO BID Qty: 14 0RF chlorhexidine gluconate [Peridex] 0.12 % mouthwash 15 ml buccal BID Qty: 120 0RF oxycodone 5 mg tablet 5 mg PO Q6H PRN (Reason: pain) Qty: 8 0RF Rx Instructions: Partial Fill upon patient request. lidocaine [Lidoderm] 5 % adhesive patch,medicated 1 patch topical DAILY Qty: 15 0RF Rx Instructions: leave on most painful area for up to 12 hrs naproxen 500 mg tablet 500 mg PO Q12H PRN (Reason: pain (scale score 1-3)) Qty: 20 0RF amoxicillin-pot clavulanate 875-125 mg tablet 1 tab PO Q12H Qty: 14 0RF dicyclomine 10 mg capsule 10 mg PO QID PRN (Reason: abdominal pain) Qty: 20 0RF acetaminophen [Tylenol] 325 mg tablet 650 mg PO Q6H PRN (Reason: pain) Qty: 30 0RF erythromycin 5 mg/gram (0.5 %) ointment 0.5 inch ophthalmic (eye) QID Qty: 3.5 0RF Stand Alone Forms: Work/School Release Interventions: ED Discharge Assessment Last Done: 11/19/24 15:29 Discharge Date/Time: 11/19/24 15:31 Print Language: Scottish
[2024-11-19 10:52] LABS: INTERNATIONAL NORM RATIO 0.9 (0.9-1.1); Prothrombin Time 10.3 SEC (10.9-12.4)
[2024-11-19 11:02] LABS: Alanine Aminotransferase 183 U/L (0-40); Albumin Level 4.8 g/dL (3.5-5.0); Alkaline Phosphatase 123 U/L (39-117); Anion Gap 24 (12-20); Aspartate Amino Transferase 220 U/L (5-37); Bilirubin Direct 0.4 mg/dL (0.0-0.5); Bilirubin Total 1.4 mg/dL (0.0-1.0); Blood Urea Nitrogen 8 mg/dL (9-16); Calcium 9.2 mg/dL (8.4-10.2); Carbon Dioxide 19 mmol/L (22-29); Chloride 92 mmol/L (96-108); Creatinine Clr Calc Pharmacy 151.1; Estimated Glomerular Filt Rate > 60; Glucose Random 99 mg/dL (60-115); Lipase 38 U/L (8-78); Potassium 3.8 mmol/L (3.3-5.1); Sodium 131 mmol/L (135-145)
[2024-11-19 11:04] LABS: Troponin-I High Sensitivity 4.9 ng/L (<3.5-35.0)
--- NOTE | 2024-11-19 11:10 | PC.NURSE ---
Pt difficult stick. Unable to obtain IV access. Pt stated I need a break. Will reattempt at later time.
[2024-11-19 11:21] LABS: Influenza A PCR NEGATIVE (Negative); Influenza B PCR NEGATIVE (Negative); Resp Syncy Virus RNA Qual PCR NEGATIVE (Negative); SARS COV2 PCR INHOUSE NEGATIVE (Negative)
[2024-11-19] MEDS: Lactated Ringers 1,000 ML 999 ML IV (11:34)
[2024-11-19] MEDS: ondansetron HCL 4 MG/2 ML VIAL IVPUSH (11:34)
[2024-11-19] MEDS: Pantoprazole Sodium 40 MG/10 ML VIAL IVPUSH (11:35)
[2024-11-19 11:38] LABS: Ethanol 386 mg/dL
[2024-11-19] MEDS: chlordiazePOXIDE HCl 25 MG CAPSULE PO ×2 (11:44→15:27)
[2024-11-19 11:45] VITALS: BP 158/103; PULSE 91; RESP 22; O2SAT 95
--- OUTSIDE RECORDS SUMMARY | 2024-11-19 12:05 | XMS_ITS | Clinical Summary ---
Author Organization [facility] Address [address] [place] [address] Care Team Providers Care Crane Man Name Role Phone Unavailable Primary Care Provider [...] Encounters Date Type Department Care Team Description 10/03/2024 Population Health Risk Score [facility] (C[facility]) Department [address] [facility] [address] [place] [id number] Provider, Population Health Generic 08/25/2024 10:00 AM EST Office Visit [facility] [address] [place] [address] Estefanía William NP Elevated blood pressure reading [...] patient's age to complete this topic Insurance [facility] C[facility]
[2024-11-19 12:42] VITALS: BP 176/102; PULSE 102; RESP 18; O2SAT 99
[2024-11-19 13:53] VITALS: BP 118/69; PULSE 116; RESP 24; TEMP 36.8; O2SAT 97
[2024-11-19 15:24] VITALS: BP 145/90; PULSE 100; RESP 15; O2SAT 97
[2024-11-19 15:29] VITALS: BP 145/90; PULSE 100; RESP 15; TEMP 37.1; O2SAT 97
== END 2024-11-19 15:31 | disposition home or self-care (01) ==
PROVIDERS: Physician Assistant; Emergency Provider Emergency Medicine
DX: F10.19 Alcohol abuse with unspecified alcohol-induced disorder (principal); Y90.8 Blood alcohol level of 240 mg/100 ml or more; K70.10 Alcoholic hepatitis without ascites; R06.02 Shortness of breath; R07.9 Chest pain, unspecified; Z03.818 Encounter for observation for suspected exposure to other biological agents ruled out; J45.909 Unspecified asthma, uncomplicated; I10 Essential (primary) hypertension
CPT/HCPCS: 0241U; 36415; 71046; 76705; 80048; 80076; 80307; 83690; 84484; 85025; 85610; 93005; 96361; 96374; 96375; 99284; 99285; J2405; J2470; J7120; S9485

== ENCOUNTER → 2024-11-19 10:27 | Outpatient (BNV) | payer MEDICAID, SELFPAY | PROVIDERS: Emergency Provider Emergency Medicine; Visit Provider Internal Medicine Cardiovascular Disease | DX: R00.2 Palpitations (principal); R06.02 Shortness of breath | CPT/HCPCS: 93010 ==

== ENCOUNTER → 2024-11-19 10:27 | Outpatient (BNV) | payer MEDICAID, SELFPAY | PROVIDERS: Emergency Provider Emergency Medicine; Visit Provider Radiology Diagnostic Radiology | DX: K76.0 Fatty (change of) liver, not elsewhere classified (principal); R00.2 Palpitations; R06.02 Shortness of breath | CPT/HCPCS: 71046; 76705 ==

== ENCOUNTER 2024-11-25 16:07 | Emergency (ER) | payer MEDICAID, SELFPAY ==
[2024-11-25 16:26] VITALS: BP 157/109; PULSE 108; RESP 18; TEMP 37; O2SAT 98; BMI 22.7
--- NOTE | 2024-11-25 16:50 | ED_ITS ---
HPI - General Adult General Chief complaint: Dental/Oral Stated complaint: Tooth pain Time Seen by Provider: 11/25/24 16:30 Source: patient Mode of arrival: ambulatory Limitations: no limitations History of Present Illness ED Provider: vishnu Blount HPI narrative: 34-year-old male presents to ED for right lower tooth ache after tooth cracked and now has collection in the tooth. Patient denies any jaw swelling, neck swelling, drooling, change in voice, fever, or chills. Patient denies any recent trauma Related Data Previous Rx's ?Medication ?Instructions ?Recorded ibuprofen 600 mg tablet 600 mg PO Q8H PRN pain #30 tabs 07/05/20 amlodipine 5 mg tablet 5 mg PO DAILY #30 tabs 04/29/21 dicyclomine 10 mg capsule 10 mg PO QID PRN abdominal pain 02/06/23 #20 caps acetaminophen 325 mg tablet 650 mg (2 x 325 mg) PO Q6H PRN 11/05/23 (Tylenol) pain #30 tabs chlorhexidine gluconate 0.12 % 15 ml buccal BID #118 mL 04/02/24 mouthwash (Peridex) naproxen 500 mg tablet 500 mg PO BID 7 days #14 tabs 04/02/24 penicillin V potassium 500 mg 500 mg PO BID 10 days #20 tabs 04/02/24 tablet amoxicillin 875 mg-potassium 1 tab PO Q12H 7 days #14 tabs 06/14/24 clavulanate 125 mg tablet tramadol 50 mg tablet 50 mg PO Q8H PRN pain (scale score 06/14/24 4-6) #7 tabs erythromycin 5 mg/gram (0.5 %) eye 0.5 inch ophthalmic (eye) QID #3.5 08/07/24 ointment grams amoxicillin 875 mg-potassium 1 tab PO BID #14 tabs 08/20/24 clavulanate 125 mg tablet chlorhexidine gluconate 0.12 % 15 ml buccal BID #120 mL 08/20/24 mouthwash (Peridex) oxycodone 5 mg tablet 5 mg PO Q6H PRN pain #8 tabs 08/20/24 lidocaine 5 % topical patch 1 patch topical DAILY #15 ea 09/29/24 (Lidoderm) naproxen 500 mg tablet 500 mg PO Q12H PRN pain (scale 09/29/24 score 1-3) #20 tabs amoxicillin 875 mg-potassium 1 tab PO Q12H #14 tabs 11/18/24 clavulanate 125 mg tablet naltrexone 50 mg tablet See Rx Instructions .Route 11/19/24 .COMPLEX #30 tabs pantoprazole 40 mg tablet,delayed 40 mg PO DAILY #30 tabs 11/19/24 release (Protonix) thiamine HCl (vitamin B1) 100 mg 100 mg PO DAILY #30 tabs 11/19/24 tablet amoxicillin 875 mg-potassium 1 tab PO Q12H #20 tabs 11/25/24 clavulanate 125 mg tablet naproxen 500 mg tablet 500 mg PO BID PRN pain #14 tabs 11/25/24 Allergies Allergy/AdvReac Type Severity Reaction Status Date / Time No Known Allergies Allergy Verified 11/25/24 16:26 Review of Systems 2 Review of Systems: Right lower molar pain Yes all other systems are reviewed and are negative [facility] Past Medical History Medical History Asthma Surgical History History of tonsillectomy and adenoidectomy Social History Social History Alcohol intake: current Alcohol intake frequency: 3 or more drinks per day Substance Use Type: Marijuana Advance Directives: No Advance Directives Information Provided: No Physical Exam ED Vital Signs: Vital Signs - 24 hr 11/25/24 16:26 11/25/24 17:21 Temperature 98.6 F 98.6 F Pulse Rate 108 H 108 H Respiratory Rate 18 18 Blood Pressure 157/109 H 157/109 H Pulse Oximetry 98 98 Oxygen Delivery Method Room Air Room Air BMI result Body Mass Index 22.7 Const General: cooperative, healthy appearing, comfortable, no acute distress, well developed, alert, awake and Physically active Orientation/consciousness: patient oriented x3 HENMT Other: Negative for any facial swelling Head: Yes normal to inspection, Yes No palpable skull fracture present, Yes normocephalic and Yes atraumatic Ears: hearing grossly normal bilaterally, external ears normal, TM's normal bilaterally, TM normal on the right, TM normal on the left, EAC's normal, mastoids normal and no periauricular adenopathy Teeth image: 2 1. Hole with yellow collection. positive for tenderness on palpation. negative for gum swelling, facial swelling, drooling, change in voice, or trisums. 2. Hole with yellow collection. positive for tenderness on palpation. negative for gum swelling, facial swelling, drooling, change in voice, or trisums. Eyes General: appearance normal, both eyes and all related structures Neck Neck: Yes normal visual inspection, Yes full ROM, Yes no lymphadenopathy, Yes no meningeal signs, Yes trachea midline, Yes supple, No anterior neck swelling and No tender Chest Chest palpation & inspection: normal inspection of the chest and normal palpation of entire chest wall Resp Effort & Inspection: normal respiratory effort and able to speak in complete sentences Auscultation: clear to auscultation bilaterally Cardio Jugular venous distension: no JVD Heart sounds: S1 normal heart sound present and S2 normal heart sound present GI Inspection: Yes normal to inspection Palpation (GI): Soft to palpation, not firm, nontender, no guarding and not rigid General: Yes no CVA tenderness Back/Spine/Pelvis Back: no CVA tenderness and No back tenderness Skin General skin exam: no rashes or lesions noted, elasticity normal and turgor normal Neuro General: patient oriented x3, gait normal, tone normal, moves all extremities, Normal light touch and pain sensation, no meningeal signs, no focal motor deficits, CN's II-XI intact bilaterally and normal sensation to monofilament Extrem General: Yes normal to inspection, Yes full ROM and Yes capillary refill normal Psych Appearance: grossly normal, well kempt and not disheveled Course Course Course Narrative: RME: Medical Decision Making Medical Decision Making [facility] Narrative: RME: 34-year-old male presents to ED for right lower molar pain. Patient states tooth crack has a hole now was painful. Patient denies any swelling of jaw or face. Patient is supposed to left upper molar with hole to be extracted. Oral exam positive for right lower molar cracked with hole with some yellow collection. Negative for signs of trismus or gum swelling. Negative for neck/facial swelling. Left upper molar with whole also has some collection. Negative for drooling or change in voice. Patient will be discharged antibiotics and has follow-up with his dentist. Not suspecting retropharyngeal abscess, peritonsillar abscess, trismus, Garry's angina, or any other life- threatening etiology. Differential Diagnosis Differential Diagnoses: The differential diagnosis associated with the presentation includes (Tooth ache,) Admission/Observation Consideration of admission/observation: Escalation of care including admission/observation considered Independent Historian Clinical information obtained from an independent historian. History obtained from or confirmed by: Other (Patient is) Prescription Management I considered prescription management with: Pain Medication and Antibiotic Attestation Attending Attestation: I was personally present and available for consultation in the ED. I have reviewed everything on the chart that is available and agree with the documentation provided by the GREY including discussion about the assessment, treatment plan and discussion. Based on medical record the care appears appropriate. Celso Dobbs MD [facility] Emergency Medicine Discharge Plan Discharge Clinical Impression: Toothache, Cracked tooth Patient Disposition: Home, Self-Care Instructions: Toothache (ED) Additional Instructions: Recommend follow-up with your dentist. Return to the ED immediately for any drooling, change in voice, facial swelling, neck swelling, fever, chills, or any other concerning symptoms. Prescriptions: New amoxicillin-pot clavulanate 875-125 mg tablet 1 tab PO Q12H Qty: 20 0RF naproxen 500 mg tablet 500 mg PO BID PRN (Reason: pain) Qty: 14 0RF No Action ibuprofen 600 mg tablet 600 mg PO Q8H PRN (Reason: pain) Qty: 30 0RF amlodipine 5 mg tablet 5 mg PO DAILY Qty: 30 1RF penicillin V potassium 500 mg tablet 500 mg PO BID 10 Days Qty: 20 0RF naproxen 500 mg tablet 500 mg PO BID 7 Days Qty: 14 0RF chlorhexidine gluconate [Peridex] 0.12 % mouthwash 15 ml buccal BID Qty: 118 0RF amoxicillin-pot clavulanate 875-125 mg tablet 1 tab PO Q12H 7 Days Qty: 14 0RF tramadol 50 mg tablet 50 mg PO Q8H PRN (Reason: pain (scale score 4-6)) Qty: 7 0RF amoxicillin-pot clavulanate 875-125 mg tablet 1 tab PO BID Qty: 14 0RF chlorhexidine gluconate [Peridex] 0.12 % mouthwash 15 ml buccal BID Qty: 120 0RF oxycodone 5 mg tablet 5 mg PO Q6H PRN (Reason: pain) Qty: 8 0RF Rx Instructions: Partial Fill upon patient request. lidocaine [Lidoderm] 5 % adhesive patch,medicated 1 patch topical DAILY Qty: 15 0RF Rx Instructions: leave on most painful area for up to 12 hrs naproxen 500 mg tablet 500 mg PO Q12H PRN (Reason: pain (scale score 1-3)) Qty: 20 0RF amoxicillin-pot clavulanate 875-125 mg tablet 1 tab PO Q12H Qty: 14 0RF dicyclomine 10 mg capsule 10 mg PO QID PRN (Reason: abdominal pain) Qty: 20 0RF acetaminophen [Tylenol] 325 mg tablet 650 mg PO Q6H PRN (Reason: pain) Qty: 30 0RF erythromycin 5 mg/gram (0.5 %) ointment 0.5 inch ophthalmic (eye) QID Qty: 3.5 0RF naltrexone 50 mg tablet See Rx Instructions .ROUTE .COMPLEX Qty: 30 0RF Rx Instructions: take 1/2 tab (25 mg) for 3 days then increase to 1 tab (50mg) daily thiamine HCl (vitamin B1) 100 mg tablet 100 mg PO DAILY Qty: 30 0RF pantoprazole [Protonix] 40 mg tablet,delayed release (DR/EC) 40 mg PO DAILY Qty: 30 0RF Stand Alone Forms: Work/School Release Interventions: ED Discharge Assessment Last Done: 11/25/24 17:21 Discharge Date/Time: 11/25/24 17:22 Print Language: Bengali
--- OUTSIDE RECORDS SUMMARY | 2024-11-25 17:06 | XMS_ITS | Clinical Summary ---
Author Organization [facility] Address [address] [place] [address] Care Team Providers Care Director Of Convention Services Name Role Phone Unavailable Primary Care Provider [...] Team Description 10/03/2024 Population Health Risk Score [facility] ([facility]) Department [address] [address] [place] [address] Provider, Population Health Generic from Last 3 Months Social History Tobacco [...] patient's age to complete this topic Insurance [facility]
[2024-11-25 17:21] VITALS: BP 157/109; PULSE 108; RESP 18; TEMP 37; O2SAT 98
== END 2024-11-25 17:22 | disposition home or self-care (01) ==
PROVIDERS: Emergency Provider Emergency Medicine
DX: K08.89 Other specified disorders of teeth and supporting structures (principal); K03.81 Cracked tooth
CPT/HCPCS: 99282; 99283

== ENCOUNTER 2025-02-18 20:55 | Emergency (ER) | payer SELFPAY ==
[2025-02-18 21:01] VITALS: BP 177/121; PULSE 122; RESP 18; TEMP 37.2; O2SAT 97; BMI 26.3
--- NOTE | 2025-02-18 21:11 | ECG_ITS ---
Test Reason : DIZZINESS Blood Pressure : */* mmHG Vent. Rate : 109 BPM Atrial Rate : 109 BPM P-R Int : 136 ms QRS Dur : 88 ms QT Int : 328 ms P-R-T Axes : 52 17 48 degrees QTcB Int : 441 ms Sinus tachycardia Moderate voltage criteria for LVH, may be normal variant ( R in aVL , Sokolow-Francis ) Borderline ECG When compared with ECG of 19-Nov-2024 10:29, No significant change was found Referred By: Generic ED Physician Electronically Signed By: ELIJAH VALLADARES MD
[2025-02-18 21:52] LABS: MANUAL DIFF FLAG NO
[2025-02-18 21:53] VITALS: BP 177/121; PULSE 122; RESP 18; TEMP 37.2; O2SAT 97
[2025-02-18 21:53] LABS: Hematocrit 42.9 % (42.0-52.0); Hemoglobin 15.6 g/dl (14.0-18.0); Imm Gran Abs Auto 0.08 X10*3/uL (0.00-0.03); Imm Gran Pct Auto 0.6 % (0.0-0.4); Lymphocytes Absolute Auto 1.3 X10*3/uL (1.2-4.9); Mean Corpuscular HGB Conc 36.4 g/dl (31.0-36.0); Mean Corpuscular Hemoglobin 33.1 pg (27.0-33.0); Mean Corpuscular Volume 91.1 fL (80.0-98.0); NRBC Abs Auto 0.030 X10*3/uL (0.0-0.012); NRBC Pct Auto 0.2 /100WBC (0.0-0.2); Platelet Count 180 X10*3/uL (160-400); Red Blood Count 4.71 X10*6/uL (4.60-5.80); White Blood Count 13.8 X10*3/uL (4.8-10.8)
[2025-02-18 22:13] LABS: Alanine Aminotransferase 100 U/L (0-40); Albumin Level 5.5 g/dL (3.5-5.0); Alkaline Phosphatase 106 U/L (39-117); Anion Gap 26 (12-20); Aspartate Amino Transferase 111 U/L (5-37); Blood Urea Nitrogen 25 mg/dL (9-16); Calcium 9.4 mg/dL (8.4-10.2); Carbon Dioxide 16 mmol/L (22-29); Chloride 96 mmol/L (96-108); Creatinine Clr Calc Pharmacy 61.8; Estimated Glomerular Filt Rate 40; Potassium 2.6 mmol/L (3.3-5.1); Sodium 135 mmol/L (135-145); Total Protein 8.5 g/dL (6.5-8.0)
[2025-02-18 22:15] LABS: Troponin-I High Sensitivity 8.3 ng/L (<3.5-35.0)
[2025-02-18] MEDS: Potassium Chloride/H20 10 MEQ/100 ML PIGGYBACK 100 MEQ IV ×2 (22:29→23:46)
[2025-02-18 22:31] LABS: Magnesium 1.6 mg/dL (1.6-2.6)
[2025-02-18] MEDS: Potassium Chloride ER 20 MEQ TAB.ER.PRT 40 MEQ PO (22:46)
[2025-02-18 23:06] VITALS: BP 184/128; PULSE 113; RESP 22; TEMP 37; O2SAT 99
[2025-02-19 00:18] VITALS: BP 180/128; PULSE 91; RESP 14; TEMP 37.1; O2SAT 100
[2025-02-19] MEDS: Potassium Chloride/H20 10 MEQ/100 ML PIGGYBACK 100 MEQ IV ×2 (01:00→02:18)
--- NOTE | 2025-02-19 01:44 | ED.GENADULT ---
HPI - General Adult General Chief complaint: General Medical Stated complaint: muscle spasms, hands tightening Time Seen by Provider: 02/18/25 22:18 Source: patient Limitations: no limitations History of Present Illness ED Provider: Diamond Martinez PA-C HPI narrative: 34-year-old male presents with potential heat stroke. Patient states he works outside, it has been extremely hot. After work today, he developed dizziness, generalized myalgias, chills, excessive thirst and excessive vomiting. Patient also states he has been developing sporadic muscle cramping. Denies fever. Related Data Previous Rx's ?Medication ?Instructions ?Recorded ibuprofen 600 mg tablet 600 mg PO Q8H PRN pain #30 tabs 07/05/20 amlodipine 5 mg tablet 5 mg PO DAILY #30 tabs 04/29/21 dicyclomine 10 mg capsule 10 mg PO QID PRN abdominal pain 02/06/23 #20 caps acetaminophen 325 mg tablet 650 mg (2 x 325 mg) PO Q6H PRN 11/05/23 (Tylenol) pain #30 tabs chlorhexidine gluconate 0.12 % 15 ml buccal BID #118 mL 04/02/24 mouthwash (Peridex) naproxen 500 mg tablet 500 mg PO BID 7 days #14 tabs 04/02/24 penicillin V potassium 500 mg 500 mg PO BID 10 days #20 tabs 04/02/24 tablet amoxicillin 875 mg-potassium 1 tab PO Q12H 7 days #14 tabs 06/14/24 clavulanate 125 mg tablet tramadol 50 mg tablet 50 mg PO Q8H PRN pain (scale score 06/14/24 4-6) #7 tabs erythromycin 5 mg/gram (0.5 %) eye 0.5 inch ophthalmic (eye) QID #3.5 08/07/24 ointment grams amoxicillin 875 mg-potassium 1 tab PO BID #14 tabs 08/20/24 clavulanate 125 mg tablet chlorhexidine gluconate 0.12 % 15 ml buccal BID #120 mL 08/20/24 mouthwash (Peridex) oxycodone 5 mg tablet 5 mg PO Q6H PRN pain #8 tabs 08/20/24 lidocaine 5 % topical patch 1 patch topical DAILY #15 ea 09/29/24 (Lidoderm) naproxen 500 mg tablet 500 mg PO Q12H PRN pain (scale 09/29/24 score 1-3) #20 tabs amoxicillin 875 mg-potassium 1 tab PO Q12H #14 tabs 11/18/24 clavulanate 125 mg tablet naltrexone 50 mg tablet See Rx Instructions .Route 11/19/24 .COMPLEX #30 tabs pantoprazole 40 mg tablet,delayed 40 mg PO DAILY #30 tabs 11/19/24 release (Protonix) thiamine HCl (vitamin B1) 100 mg 100 mg PO DAILY #30 tabs 11/19/24 tablet amoxicillin 875 mg-potassium 1 tab PO Q12H #20 tabs 11/25/24 clavulanate 125 mg tablet naproxen 500 mg tablet 500 mg PO BID PRN pain #14 tabs 11/25/24 amoxicillin 875 mg-potassium 1 tab PO BID #14 tabs 02/22/25 clavulanate 125 mg tablet chlorhexidine gluconate 0.12 % 15 ml buccal DAILY #120 mL 02/22/25 mouthwash naproxen 500 mg tablet 500 mg PO BID PRN pain #14 tabs 02/22/25 Allergies Allergy/AdvReac Type Severity Reaction Status Date / Time No Known Allergies Allergy Verified 02/22/25 10:29 [facility] Past Medical History Medical History Asthma Surgical History History of tonsillectomy and adenoidectomy Social History Social History Alcohol intake: current Alcohol intake frequency: 3 or more drinks per day Substance Use Type: Marijuana Advance Directives: No Advance Directives Information Provided: No Do you have a plan to hurt others: No Plan Physical Exam ED Vital Signs: Vital Signs - 24 hr 02/18/25 21:01 02/18/25 21:53 02/18/25 23:06 Temperature 99.0 F 99.0 F 98.6 F Pulse Rate 122 H 122 H 113 H Respiratory Rate 18 18 22 H Blood Pressure 177/121 H 177/121 H 184/128 H Pulse Oximetry 97 97 99 Oxygen Delivery Method Room Air Room Air Room Air 02/19/25 00:18 02/19/25 02:11 Temperature 98.8 F 98.9 F Pulse Rate 91 98 Respiratory Rate 14 17 Blood Pressure 180/128 H 171/110 H Pulse Oximetry 100 100 Oxygen Delivery Method Room Air Room Air BMI result Body Mass Index 26.3 Medications Administered Discontinued Medications Generic Name Dose Route Start Last Admin Trade Name Joseq PRN Reason Stop Dose Admin Sodium Chloride 1,000 mls @ 999 mls/hr 02/18/25 22:15 02/19/25 00:59 Ns IV 02/18/25 23:15 Infused .Q1H1M ILAN Infusion Potassium Chloride 10 meq in 100 mls @ 100 mls/hr 02/18/25 22:15 02/19/25 03:20 Potassium Chloride/H20 IV 02/19/25 02:14 Infused Q1H ILAN Infusion Midazolam HCl 2 mg 02/18/25 22:15 02/18/25 22:28 Midazolam Hcl 2 Mg/2 Ml Vial IVPUSH 02/18/25 22:16 2 mg ONCE ONE Administration Potassium Chloride 40 meq 02/18/25 22:15 02/18/25 22:46 Potassium Chloride Er 20 Meq Tab.Er.Prt PO 02/18/25 22:16 40 meq ONCE ONE Administration Medical Decision Making Medical Decision Making MDM Narrative: 34-year-old male presents with potential heat stroke. Patient states he works outside, it has been extremely hot. After work today, he developed dizziness, generalized myalgias, chills, excessive thirst and excessive vomiting. Patient also states he has been developing sporadic muscle cramping. Denies fever. Problem: No underlying chronic conditions History: Per patient I have considered the following differential diagnoses: Heat exhaustion, heat stroke, dehydration, electrolyte abnormality, viral syndrome Plan: Screening labs were obtained from triage, the patient is clinically dehydrated with the hypokalemia. We will give IV fluids, 40 mEq of potassium with oral potassium once he can tolerate it. We will repeat labs once he completes treatment. I have independently reviewed the following tests: Labs: Leukocytosis with left shift, not anemic, patient's potassium is 2.6, he has an acute kidney injury, no additional lab abnormalities, his liver function has a baseline actually improved from his baseline, urine not infected passing hematuria Repeat labs: Potassium now within normal limits at 3.9, creatinine improved to 1.06, gap improved at 21 Lab Data 02/18/25 21:46 02/19/25 03:41 Labs: Lab Results 02/18/25 02/18/25 02/19/25 Range/Units 21:46 21:47 03:28 WBC 13.8 H (4.8-10.8) X10*3/uL RBC 4.71 (4.60-5.80) X10*6/uL Hgb 15.6 (14.0-18.0) g/dl Hct 42.9 (42.0-52.0) % MCV 91.1 (80.0-98.0) fL MCH 33.1 H (27.0-33.0) pg MCHC 36.4 H (31.0-36.0) g/dl RDW 13.1 (11.0-16.0) % Plt Count 180 (160-400) X10*3/uL MPV 9.8 (9.4-12.4) fL Immature Gran % (Auto) 0.6 H (0.0-0.4) % Neut % (Auto) 82.2 H (45-73) % Lymph % (Auto) 9.7 L (20-40) % [place] % (Auto) 7.0 (2-11) % Eos % (Auto) 0.0 (0-4) % Baso % (Auto) 0.5 (0-2) % Lymph # (Auto) 1.3 (1.2-4.9) X10*3/uL [place] # (Auto) 1.0 (0.1-1.2) X10*3/uL Eos # (Auto) 0.0 (0.0-0.4) X10*3/uL Baso # (Auto) 0.1 (0.0-0.2) X10*3/uL Abs Immat Gran (auto) 0.08 H (0.00-0.03) X10*3/uL Absolute Neuts (auto) 11.3 H (2.0-8.3) x10*3/uL Absolute Nucleated RBC 0.030 H (0.0-0.012) X10*3/uL Nucleated RBC % (auto) 0.2 (0.0-0.2) /100WBC Sodium 135 (135-145) mmol/L Potassium 2.6 L* D (3.3-5.1) mmol/L Chloride 96 (96-108) mmol/L Carbon Dioxide 16 L (22-29) mmol/L Anion Gap 26 H (12-20) BUN 25 H (9-16) mg/dL Creatinine 1.92 H (0.5-1.4) mg/dL Estim Creat Clear Calc 61.8 Estimated GFR 40 Random Glucose 122 H (60-115) mg/dL Calcium 9.4 (8.4-10.2) mg/dL Magnesium 1.6 (1.6-2.6) mg/dL Total Bilirubin 2.2 H (0.0-1.0) mg/dL AST 111 H (5-37) U/L ALT 100 H (0-40) U/L Alkaline Phosphatase 106 (39-117) U/L Troponin I High Sens 8.3 D (<3.5-35.0) ng/L Total Protein 8.5 H (6.5-8.0) g/dL Albumin 5.5 H (3.5-5.0) g/dL Urine Color Dark Yellow Urine Appearance Cloudy Urine pH 6.0 (5.0-9.0) Ur Specific [place] 1.025 (1.005-1.025) Urine Protein 300 (3+) H (Neg-Trace) mg/dL Urine Glucose (UA) Negative (Negative) mg/dL Urine Ketones 80 (Negative) mg/dL Urine Blood Moderate (2+) H (Negative) Urine Nitrite Negative (Negative) Ur Leukocyte Esterase Negative (Negative) Urine RBC 3-5 H (0-2) /HPF Urine WBC 0-5 (0-5) /HPF Ur Squamous Epith Cells 0-2 (0-2) /HPF Urine Bacteria None Seen (None Seen) Hyaline Casts 6-10 (0-2) /LPF Ethyl Alcohol < 10 mg/dL 02/19/25 Range/Units 03:41 WBC (4.8-10.8) X10*3/uL RBC (4.60-5.80) X10*6/uL Hgb (14.0-18.0) g/dl Hct (42.0-52.0) % MCV (80.0-98.0) fL MCH (27.0-33.0) pg MCHC (31.0-36.0) g/dl RDW (11.0-16.0) % Plt Count (160-400) X10*3/uL MPV (9.4-12.4) fL Immature Gran % (Auto) (0.0-0.4) % Neut % (Auto) (45-73) % Lymph % (Auto) (20-40) % [place] % (Auto) (2-11) % Eos % (Auto) (0-4) % Baso % (Auto) (0-2) % Lymph # (Auto) (1.2-4.9) X10*3/uL [place] # (Auto) (0.1-1.2) X10*3/uL Eos # (Auto) (0.0-0.4) X10*3/uL Baso # (Auto) (0.0-0.2) X10*3/uL Abs Immat Gran (auto) (0.00-0.03) X10*3/uL Absolute Neuts (auto) (2.0-8.3) x10*3/uL Absolute Nucleated RBC (0.0-0.012) X10*3/uL Nucleated RBC % (auto) (0.0-0.2) /100WBC Sodium 135 (135-145) mmol/L Potassium 3.9 D (3.3-5.1) mmol/L Chloride 98 (96-108) mmol/L Carbon Dioxide 20 L (22-29) mmol/L Anion Gap 21 H (12-20) BUN 21 H (9-16) mg/dL Creatinine 1.06 (0.5-1.4) mg/dL Estim Creat Clear Calc 112.0 Estimated GFR > 60 Random Glucose 95 (60-115) mg/dL Calcium 9.1 (8.4-10.2) mg/dL Magnesium (1.6-2.6) mg/dL Total Bilirubin (0.0-1.0) mg/dL AST (5-37) U/L ALT (0-40) U/L Alkaline Phosphatase (39-117) U/L Troponin I High Sens (<3.5-35.0) ng/L Total Protein (6.5-8.0) g/dL Albumin (3.5-5.0) g/dL Urine Color Urine Appearance Urine pH (5.0-9.0) Ur Specific [place] (1.005-1.025) Urine Protein (Neg-Trace) mg/dL Urine Glucose (UA) (Negative) mg/dL Urine Ketones (Negative) mg/dL Urine Blood (Negative) Urine Nitrite (Negative) Ur Leukocyte Esterase (Negative) Urine RBC (0-2) /HPF Urine WBC (0-5) /HPF Ur Squamous Epith Cells (0-2) /HPF Urine Bacteria (None Seen) Hyaline Casts (0-2) /LPF Ethyl Alcohol mg/dL Discharge Plan Discharge Clinical Impression: Acute hypokalemia, Acute dehydration, Hematuria Patient Disposition: Home, Self-Care Instructions: Dehydration (ED), Potassium Content of Foods List (ED), Liquids and Hydration for Athletes (ED), Hypokalemia (ED), Hematuria (ED) Additional Instructions: You were found to be dehydrated in your potassium was critically low. Your electrolytes were replenished. See home care instructions. Follow up with your primary care provider as needed. You were incidentally found to have trace blood in your urine, your urine is not infected. You should follow up with the urologist, I am providing you with a contact from our service. You can call to make a follow up appointment. Prescriptions: No Action ibuprofen 600 mg tablet 600 mg PO Q8H PRN (Reason: pain) Qty: 30 0RF amlodipine 5 mg tablet 5 mg PO DAILY Qty: 30 1RF penicillin V potassium 500 mg tablet 500 mg PO BID 10 Days Qty: 20 0RF naproxen 500 mg tablet 500 mg PO BID 7 Days Qty: 14 0RF chlorhexidine gluconate [Peridex] 0.12 % mouthwash 15 ml buccal BID Qty: 118 0RF amoxicillin-pot clavulanate 875-125 mg tablet 1 tab PO Q12H 7 Days Qty: 14 0RF tramadol 50 mg tablet 50 mg PO Q8H PRN (Reason: pain (scale score 4-6)) Qty: 7 0RF amoxicillin-pot clavulanate 875-125 mg tablet 1 tab PO BID Qty: 14 0RF chlorhexidine gluconate [Peridex] 0.12 % mouthwash 15 ml buccal BID Qty: 120 0RF oxycodone 5 mg tablet 5 mg PO Q6H PRN (Reason: pain) Qty: 8 0RF Rx Instructions: Partial Fill upon patient request. lidocaine [Lidoderm] 5 % adhesive patch,medicated 1 patch topical DAILY Qty: 15 0RF Rx Instructions: leave on most painful area for up to 12 hrs naproxen 500 mg tablet 500 mg PO Q12H PRN (Reason: pain (scale score 1-3)) Qty: 20 0RF amoxicillin-pot clavulanate 875-125 mg tablet 1 tab PO Q12H Qty: 14 0RF amoxicillin-pot clavulanate 875-125 mg tablet 1 tab PO Q12H Qty: 20 0RF naproxen 500 mg tablet 500 mg PO BID PRN (Reason: pain) Qty: 14 0RF amoxicillin-pot clavulanate 875-125 mg tablet 1 tab PO BID Qty: 14 0RF naproxen 500 mg tablet 500 mg PO BID PRN (Reason: pain) Qty: 14 0RF chlorhexidine gluconate 0.12 % mouthwash 15 ml buccal DAILY Qty: 120 0RF dicyclomine 10 mg capsule 10 mg PO QID PRN (Reason: abdominal pain) Qty: 20 0RF acetaminophen [Tylenol] 325 mg tablet 650 mg PO Q6H PRN (Reason: pain) Qty: 30 0RF erythromycin 5 mg/gram (0.5 %) ointment 0.5 inch ophthalmic (eye) QID Qty: 3.5 0RF naltrexone 50 mg tablet See Rx Instructions .ROUTE .COMPLEX Qty: 30 0RF Rx Instructions: take 1/2 tab (25 mg) for 3 days then increase to 1 tab (50mg) daily thiamine HCl (vitamin B1) 100 mg tablet 100 mg PO DAILY Qty: 30 0RF pantoprazole [Protonix] 40 mg tablet,delayed release (DR/EC) 40 mg PO DAILY Qty: 30 0RF Referrals: Cole Mancilla MD [Physician, Urology] Referral Note: incidental hematuria Stand Alone Forms: Work/School Release Interventions: ED Discharge Assessment Last Done: 02/19/25 04:40 Discharge Date/Time: 02/19/25 04:41 Print Language: [place]
[2025-02-19 02:11] VITALS: BP 171/110; PULSE 98; RESP 17; TEMP 37.2; O2SAT 100
[2025-02-19 03:35] LABS: Appearance Urine Cloudy; Glucose Urine UA Negative (Negative); PH 6.0 (5.0-9.0); Specific Gravity - Urine 1.025 (1.005-1.025); UMIC TRIGGER UACC YES
[2025-02-19 03:57] LABS: Anion Gap 21 (12-20); Blood Urea Nitrogen 21 mg/dL (9-16); Calcium 9.1 mg/dL (8.4-10.2); Carbon Dioxide 20 mmol/L (22-29); Chloride 98 mmol/L (96-108); Creatinine Clr Calc Pharmacy 112.0; Estimated Glomerular Filt Rate > 60; Potassium 3.9 mmol/L (3.3-5.1); Sodium 135 mmol/L (135-145)
[2025-02-19 04:34] VITALS: BP 170/122; PULSE 98; RESP 16; TEMP 36.8; O2SAT 100
[2025-02-19 04:40] VITALS: BP 170/122; PULSE 98; RESP 16; TEMP 36.8; O2SAT 100
== END 2025-02-19 04:41 | disposition home or self-care (01) ==
PROVIDERS: Physician Assistant Medical; Emergency Provider Emergency Medicine
DX: E87.6 Hypokalemia (principal); E86.0 Dehydration; R31.9 Hematuria, unspecified; R42 Dizziness and giddiness
CPT/HCPCS: 36415; 80048; 80053; 80307; 81001; 83735; 84484; 85025; 93005; 96361; 96365; 96366; 96375; 99285; J2250; J3480

== ENCOUNTER → 2025-02-18 21:11 | Outpatient (BNV) | payer MEDICAID, SELFPAY | PROVIDERS: Emergency Provider Emergency Medicine; Visit Provider Internal Medicine Cardiovascular Disease | DX: R00.0 Tachycardia, unspecified (principal) | CPT/HCPCS: 93010 ==

== ENCOUNTER 2025-02-22 10:22 | Emergency (ER) | payer SELFPAY ==
[2025-02-22 10:27] VITALS: BP 167/100; PULSE 88; RESP 18; TEMP 36.6; O2SAT 99; BMI 26.1
--- NOTE | 2025-02-22 11:42 | ED.DENTAL ---
HPI - Dental/Oral General Chief complaint: Dental/Oral Stated complaint: Lump in mouth right side Time Seen by Provider: 02/22/25 11:35 Source: patient Mode of arrival: ambulatory Limitations: no limitations History of Present Illness ED Provider: Marylin Onofre NP HPI Narrative: Patient is a 34-year-old male who presents to emergency department for evaluation, reporting dental pain localized to tooth number 28 and 29 feeling of a lump at the gumline. Denies any recent dental procedures. Denies associated fevers, chills, headache, neck pain, neck stiffness, ear pain, sore throat, inability to open the mouth, foul taste, pus-like drainage, bleeding from the gums, dental fracture. Related Data Previous Rx's ?Medication ?Instructions ?Recorded ibuprofen 600 mg tablet 600 mg PO Q8H PRN pain #30 tabs 07/05/20 amlodipine 5 mg tablet 5 mg PO DAILY #30 tabs 04/29/21 dicyclomine 10 mg capsule 10 mg PO QID PRN abdominal pain 02/06/23 #20 caps acetaminophen 325 mg tablet 650 mg (2 x 325 mg) PO Q6H PRN 11/05/23 (Tylenol) pain #30 tabs chlorhexidine gluconate 0.12 % 15 ml buccal BID #118 mL 04/02/24 mouthwash (Peridex) naproxen 500 mg tablet 500 mg PO BID 7 days #14 tabs 04/02/24 penicillin V potassium 500 mg 500 mg PO BID 10 days #20 tabs 04/02/24 tablet amoxicillin 875 mg-potassium 1 tab PO Q12H 7 days #14 tabs 06/14/24 clavulanate 125 mg tablet tramadol 50 mg tablet 50 mg PO Q8H PRN pain (scale score 06/14/24 4-6) #7 tabs erythromycin 5 mg/gram (0.5 %) eye 0.5 inch ophthalmic (eye) QID #3.5 08/07/24 ointment grams amoxicillin 875 mg-potassium 1 tab PO BID #14 tabs 08/20/24 clavulanate 125 mg tablet chlorhexidine gluconate 0.12 % 15 ml buccal BID #120 mL 08/20/24 mouthwash (Peridex) oxycodone 5 mg tablet 5 mg PO Q6H PRN pain #8 tabs 08/20/24 lidocaine 5 % topical patch 1 patch topical DAILY #15 ea 09/29/24 (Lidoderm) naproxen 500 mg tablet 500 mg PO Q12H PRN pain (scale 09/29/24 score 1-3) #20 tabs amoxicillin 875 mg-potassium 1 tab PO Q12H #14 tabs 11/18/24 clavulanate 125 mg tablet naltrexone 50 mg tablet See Rx Instructions .Route 11/19/24 .COMPLEX #30 tabs pantoprazole 40 mg tablet,delayed 40 mg PO DAILY #30 tabs 11/19/24 release (Protonix) thiamine HCl (vitamin B1) 100 mg 100 mg PO DAILY #30 tabs 11/19/24 tablet amoxicillin 875 mg-potassium 1 tab PO Q12H #20 tabs 11/25/24 clavulanate 125 mg tablet naproxen 500 mg tablet 500 mg PO BID PRN pain #14 tabs 11/25/24 amoxicillin 875 mg-potassium 1 tab PO BID #14 tabs 02/22/25 clavulanate 125 mg tablet chlorhexidine gluconate 0.12 % 15 ml buccal DAILY #120 mL 02/22/25 mouthwash naproxen 500 mg tablet 500 mg PO BID PRN pain #14 tabs 02/22/25 Allergies Allergy/AdvReac Type Severity Reaction Status Date / Time No Known Allergies Allergy Verified 02/22/25 10:29 Review of Systems Review of Systems: Yes all other systems are reviewed and are negative PMFSH Past Medical History Attestation statement: The following information was validated with the patient. Source: old records reviewed Medical History Asthma Surgical History History of tonsillectomy and adenoidectomy Social History Social History Alcohol intake: current Alcohol intake frequency: 3 or more drinks per day Substance Use Type: Marijuana Advance Directives: No Advance Directives Information Provided: No Do you have a plan to hurt others: No Plan Physical Exam Vital Signs: Vital Signs: Last Vital Signs Temp 98 F 02/22/25 10:27 Pulse 88 02/22/25 10:27 Resp 18 02/22/25 10:27 BP 167/100 H 02/22/25 10:27 Pulse Ox 99 02/22/25 10:27 O2 Del Method Room Air 02/22/25 10:27 BMI result Body Mass Index 26.1 Appearance: Alert. Oriented X3. No acute distress. Head: Normal external exam. Normocephalic. Atraumatic. Eyes: PERRLA. EOMI. Conjunctiva and sclera normal. Eyelids normal. ENT: EAC normal. TM's Normal. Pharynx normal. Uvula midline. Moist mucous membranes.? ?No trismus noted.? No drooling noted.? No muffled voice noted. Dentition:? Patient with poor dentition throughout with multiple old fractured teeth with multiple dental caries.? Gingiva surrounding tooth number 28 and 29 mildly erythematous with induration no fluctuance. Gingival within normal limits.? No fluctuance.? Not consistent with peritonsillar abscess. Not consistent with dental abscess.? No salivary duct obstruction noted. Neck: Normal inspection. Neck supple. FROM. No adenopathy. No meningeal signs. No neck mass noted.? CVS: Normal heart rate and rhythm. Heart sound normal. No murmurs noted. Pulses normal throughout. Respiratory: No respiratory distress. Lung sounds clear to the apices bilaterally.. Chest nontender. ?No accessory muscle usage noted or decreased air movement noted. Skin: Skin warm and dry.? Normal skin color.? Normal skin turgor. No rashes/lesions/lacerations noted. Extremities: Extremities exhibit normal range of motion.? Extremities nontender. Neuro: Oriented X 3.? No motor deficit.? No sensory deficit.? Reflexes normal. Medical Decision Making Medical Decision Making MDM Narrative: Patient is a 34-year-old male who presents emergency department for evaluation, experiencing dental pain with associated as per HPI. On physical examination pain is localized to tooth number 28 in 29 with induration to gingiva below. No associated temperature sensitivity, severe pain/ tenderness of the tooth or purulence to suggest acute pulpitis. no gingival bleeding to suggest gingivitis, periodontitis. Does not appear consistent with periapical or periodontal abscess, no fluctuance or purulent drainage noted. No trismus, no associated sore throat, no dysphagia, no odynophagia, no hoarseness, no stridor, no dyspnea, low suspicion for paripharyngeal space infection. Uvula is midline, no edema to the soft palate, unlikely peritonsillar abscess. No induration below the angle of the mandible on the neck, nontoxic in appearance, unlikely parapharyngeal abscess. Posterior pharyngeal anatomy is without any evidence of distortion, unlikely retropharyngeal abscess. On examination no tenderness of the floor of the mouth, able to tolerate secretions, no drooling, no nuchal rigidity, no swelling to the neck, unlikely Garry's angina. Not consistent with alveolar osteitis. Discharged home with a prescription for Augmentin in addition to NSAIDs and advised outpatient follow-up with dental provider Differential Diagnosis Differential Diagnoses: The differential diagnosis associated with the presentation includes (See narrative above) External Record Review External record reviewed: Outpatient record Prescription Management I considered prescription management with: Pain Medication and Antibiotic Discharge Plan Discharge Clinical Impression: Toothache Patient Disposition: Home, Self-Care Instructions: Toothache (ED) Additional Instructions: Take the entire course of antibiotics as prescribed. Take naproxen as needed to help with pain. Do not take additional [id number] medications such as ibuprofen/Motrin/Advil, Aleve while taking his medication. Use the mouthwash as prescribed. As discussed it is important that you follow-up with a dentist, you have been provided with a paper form of local dentists clinics that you may contact to schedule an appointment with. You may return with any new or worsening symptoms or concerns. Prescriptions: New amoxicillin-pot clavulanate 875-125 mg tablet 1 tab PO BID Qty: 14 0RF naproxen 500 mg tablet 500 mg PO BID PRN (Reason: pain) Qty: 14 0RF chlorhexidine gluconate 0.12 % mouthwash 15 ml buccal DAILY Qty: 120 0RF No Action ibuprofen 600 mg tablet 600 mg PO Q8H PRN (Reason: pain) Qty: 30 0RF amlodipine 5 mg tablet 5 mg PO DAILY Qty: 30 1RF penicillin V potassium 500 mg tablet 500 mg PO BID 10 Days Qty: 20 0RF naproxen 500 mg tablet 500 mg PO BID 7 Days Qty: 14 0RF chlorhexidine gluconate [Peridex] 0.12 % mouthwash 15 ml buccal BID Qty: 118 0RF amoxicillin-pot clavulanate 875-125 mg tablet 1 tab PO Q12H 7 Days Qty: 14 0RF tramadol 50 mg tablet 50 mg PO Q8H PRN (Reason: pain (scale score 4-6)) Qty: 7 0RF amoxicillin-pot clavulanate 875-125 mg tablet 1 tab PO BID Qty: 14 0RF chlorhexidine gluconate [Peridex] 0.12 % mouthwash 15 ml buccal BID Qty: 120 0RF oxycodone 5 mg tablet 5 mg PO Q6H PRN (Reason: pain) Qty: 8 0RF Rx Instructions: Partial Fill upon patient request. lidocaine [Lidoderm] 5 % adhesive patch,medicated 1 patch topical DAILY Qty: 15 0RF Rx Instructions: leave on most painful area for up to 12 hrs naproxen 500 mg tablet 500 mg PO Q12H PRN (Reason: pain (scale score 1-3)) Qty: 20 0RF amoxicillin-pot clavulanate 875-125 mg tablet 1 tab PO Q12H Qty: 14 0RF amoxicillin-pot clavulanate 875-125 mg tablet 1 tab PO Q12H Qty: 20 0RF naproxen 500 mg tablet 500 mg PO BID PRN (Reason: pain) Qty: 14 0RF dicyclomine 10 mg capsule 10 mg PO QID PRN (Reason: abdominal pain) Qty: 20 0RF acetaminophen [Tylenol] 325 mg tablet 650 mg PO Q6H PRN (Reason: pain) Qty: 30 0RF erythromycin 5 mg/gram (0.5 %) ointment 0.5 inch ophthalmic (eye) QID Qty: 3.5 0RF naltrexone 50 mg tablet See Rx Instructions .ROUTE .COMPLEX Qty: 30 0RF Rx Instructions: take 1/2 tab (25 mg) for 3 days then increase to 1 tab (50mg) daily thiamine HCl (vitamin B1) 100 mg tablet 100 mg PO DAILY Qty: 30 0RF pantoprazole [Protonix] 40 mg tablet,delayed release (DR/EC) 40 mg PO DAILY Qty: 30 0RF Referrals: Physician,None [Primary Care Provider, Medical] Print Language: Upper Sorbian
[2025-02-22 11:57] VITALS: BP 160/80; PULSE 88; RESP 18; TEMP 36.6; O2SAT 99
== END 2025-02-22 11:58 | disposition home or self-care (01) ==
PROVIDERS: Emergency Provider Emergency Medicine Emergency Medical Services
DX: K08.89 Other specified disorders of teeth and supporting structures (principal); J45.909 Unspecified asthma, uncomplicated; Z79.899 Other long term (current) drug therapy
CPT/HCPCS: 99282; 99283